=== PATIENT | female | born 1945 | race Hispanic/Latino ===

== ENCOUNTER 2017-03-30 12:15 | Inpatient (IN) | payer MEDICARE ==
[2017-03-30 12:18] VITALS: BMI 30.4
[2017-03-30] MEDS ORDERED: Sodium Chloride 0.9% 1,000 ML IV STA (12:37)
[2017-03-30] MEDS ORDERED: Ampicillin/Sulbactam 3 GM in Sodium Chloride 0.9% 100 ML IVPB STA (12:38)
--- NOTE | 2017-03-30 13:47 | RAD ---
HISTORY: Sepsis Patient COMPARISON: 01/22/2016 FINDINGS: LUNGS: No active pulmonary disease. PLEURA: No significant pleural effusion identified, no pneumothorax apparent. CARDIOVASCULAR: Normal. OSSEOUS STRUCTURES: No significant abnormalities. VISUALIZED UPPER ABDOMEN: Normal. OTHER FINDINGS: None. IMPRESSION: No active disease.
--- NOTE | 2017-03-30 13:59 | ED PDOC ---
Arrival/HPI - General Chief Complaint: Medical Clearance Time Seen by Provider: 03/30/17 12:28 Historian: Patient, Family (Daughter) - History of Present Illness Narrative History of Present Illness (Text): 03/30/17 12:29 A 71 year old female patient with a history of metastatic breast cancer, presents to the emergency department with an infection on her right breast. The patient's daughter states that after a visit to the oncologist, he advised that they come to the emergency department for the infection. She also noted that the patient has had intermittent fevers, up to 101.6, over the past several days. She has had a poor appetite of late as well as body aches. The patient denies nausea, vomiting, diarrhea, shortness of breath, headache, dizziness, or any other complaint. PMD: Dr. Stephens Oncologist: Dr. Henderson Time/Duration: > week Symptom Onset: Gradual Symptom Course: Unchanged Activities at Onset: Rest, Light Context: Home Past Medical History - Provider Review Nursing Documentation Reviewed: Yes - Infectious Disease Hx of Infectious Diseases: None - Tetanus Immunization Tetanus Immunization: Unknown - Past Medical History Past Medical History: No Previous - Cardiac Hx Cardiac Disorders: No Hx Angina: No Hx Cardiac Arrhythmia: No Hx Circulatory Problems: No Hx Congestive Heart Failure: No Hx Heart Murmur: No Hx Heart Transplant: No Hx Hypertension: No Hx Internal Defibrillator: No Hx Mitral Valve Prolapse: No Hx Pacemaker: No Hx Peripheral Edema: No Hx Peripheral Vascular Disease: No - Pulmonary Hx Respiratory Disorders: No Hx Asthma: No Hx Bronchitis: No Hx Chronic Obstructive Pulmonary Disease (COPD): No Hx Emphysema: No Hx Pneumonia: No Hx Respiratory Aspiration: No Hx Respiratory Tract Infection: No Hx Sleep Apnea: No Hx Tuberculosis: No - Neurological Hx Neurological Disorder: No Hx Alzheimer's Disease: No HX Cerebrovascular Accident: No Hx Dementia: No Hx Dizziness: No Hx Meningitis: No Hx Migraine: No Hx Parkinson's Disease: No Hx Seizures: No Hx Transient Ischemic Attacks (TIA): No - HEENT Hx HEENT Disorder: No Hx Blind: No Hx Cataracts: Yes (h/o cataract surgery) Hx Deafness: No Hx Difficulty Chewing: No Hx Epistaxis: No Hx Glaucoma: No Hx Macular Degeneration: No - Renal Hx Renal Disorder: No Hx Dialysis: No Hx Kidney Stones: No Hx Neurogenic Bladder: No Hx Pyelonephritis: No Hx Renal Cancer: No Hx Renal Failure: No - Endocrine/Metabolic Hx Endocrine Disorders: No Hx Adrenal Cancer: No Hx Diabetes Insipidus: No Hx Diabetes Mellitus Type 1: No Hx Diabetes Mellitus Type 2: No Hx Hyperthyroidism: No Hx Hypothyroidism: No Hx Systemic Lupus Erythematosus: No - Hematological/Oncological Hx Blood Disorders: No Hx AIDS: No Hx Anemia: No Hx Cancer: Yes (breast cancer) Hx Chemotherapy: No Hx Cirrhosis: No Hx Hemophilia: No Hx Hepatitis A: No Hx Hepatitis B: No Hx Hepatitis C: No Hx Metastasis: No Hx Shingles: No Hx Sickle Cell Disease: No Hx Unexplained Bleeding: No - Integumentary Hx Dermatological Disorder: No Hx Basal Cell Carcinoma: No Hx Eczema: No Hx Melanoma: No Hx Psoriasis: No Hx Squamous Cell Carcinoma: No - Musculoskeletal/Rheumatological Hx Musculoskeletal Disorders: Yes Hx Arthritis: Yes - Gastrointestinal Hx Gastrointestinal Disorders: Yes (CHOLECYSTECTOMY,CONSTIPATION) - Genitourinary/Gynecological Hx Genitourinary Disorders: No Hx Reproductive Disorders: No - Psychiatric Hx Psychophysiologic Disorder: Yes Hx Anxiety: Yes Hx Bipolar Disorder: No Hx Depression: No Hx Emotional Abuse: No Hx Hallucinations: No Hx Panic Disorder: No Hx Post Traumatic Stress Disorder: No Hx Psychosis: No Hx Physical Abuse: No Hx Schizophrenia: No Hx Sexual Abuse: No Hx Substance Use: No - Surgical History Hx Amputation: No Hx Appendectomy: No Hx Cardiac Catheterization: No Hx Cholecystectomy: Yes Hx Coronary Stent: No Hx Gastric Bypass Surgery: No Hx Hysterectomy: Yes Hx Joint Replacement: No Hx Kidney Transplant: No Hx Liver Transplant: No Hx Mastectomy: No Hx Musculoskeletal Surgery: No Hx Open Heart Surgery: No Hx Orthopedic Surgery: No Hx Splenectomy: No Hx Tonsillectomy: Yes Hx Valve Replacement: No - Anesthesia Hx Anesthesia: Yes Hx Anesthesia Reactions: No - Suicidal Assessment Feels Threatened In Home Enviroment: No Family/Social History - Physician Review Nursing Documentation Reviewed: Yes Family/Social History: No Known Family HX Smoking Status: Former Smoker Hx Alcohol Use: No Hx Substance Use: No Allergies/Home Meds Allergies/Adverse Reactions: Allergies No Known Allergies Allergy (Verified 03/30/17 12:18) Home Medications: Home Meds Medication Instructions Recorded Confirmed Calcium Carbonate/Vitamin D3 1 tab PO DAILY 03/30/17 03/30/17 [Calcium 600 + Vit D Tablet] Potassium Gluconate [Potassium] 40 meq PO DAILY 03/30/17 03/30/17 fentaNYL 25 mcg/hr [Duragesic 1 patch TD HS 03/30/17 03/30/17 Patch 25 mcg/hr] oxyCODONE [oxyCODONE Immediate 5 mg PO TID 03/30/17 03/30/17 Release Tab] Review of Systems - Physician Review All systems were reviewed & negative as marked: Yes - Review of Systems Constitutional: Fatigue, Fevers. absent: Night Sweats Eyes: Normal ENT: Normal Respiratory: absent: SOB Cardiovascular: absent: Chest Pain Gastrointestinal: Appetite Changes (loss of appetite). absent: Abdominal Pain, Diarrhea, Nausea, Vomiting Genitourinary Female: Normal Musculoskeletal: Myalgias Skin: Other (Infection Right breast) Neurological: absent: Headache, Dizziness Endocrine: Normal Hemo/Lymphatic: Normal Psychiatric: Normal Physical Exam Vital Signs Reviewed: Yes Vital Signs Temp Pulse Resp BP Pulse Ox 03/30/17 13:20 99.9 F H 108 H 18 146/100 H 98 03/30/17 12:24 98.9 F 126 H 18 127/64 95 Temperature: Afebrile (patient took tylenol) Blood Pressure: Normal Pulse: Tachycardic Respiratory Rate: Normal Appearance: Positive for: Non-Toxic Pain Distress: None Mental Status: Positive for: Alert and Oriented X 3 - Systems Exam Head: Present: Atraumatic, Normocephalic Pupils: Present: PERRL Conjunctiva: Present: Normal Mouth: Present: Moist Mucous Membranes Pharnyx: Present: Normal. No: ERYTHEMA, EXUDATE Neck: Present: Normal Range of Motion Respiratory/Chest: Present: Clear to Auscultation, Good Air Exchange. No: Respiratory Distress, Accessory Muscle Use Cardiovascular: Present: Regular Rate and Rhythm, Normal S1, S2. No: Murmurs Abdomen: Present: Normal Bowel Sounds. No: Tenderness, Distention, Peritoneal Signs Breast/Axillary: Present: Masses (R breast distorted mass with possible fungating component as well as pus discharge and very tender) Back: Present: Normal Inspection Upper Extremity: Present: Normal Inspection. No: Cyanosis, Edema Lower Extremity: Present: Normal Inspection. No: Edema Neurological: Present: GCS=15, CN II-XII Intact, Speech Normal Skin: Present: Rashes, Other (Infesction of the Right breast) Psychiatric: Present: Alert, Oriented x 3, Normal Insight, Normal Concentration Medical Decision Making ED Course and Treatment: 03/30/17 12:35 Impression: A 71 year old female patient advised by her oncologist to come into the emergency department with an infection to the right breast. Plan: -- EKG -- Labs -- IV FLuids -- Vancomycin and Ampicillin -- Blood and Urine Culture -- Urinalysis -- Reassess and disposition Progress Notes: 03/30/17 14:24: Code sepsis was called. 03/30/17 14:54 Patient with noted history as above with breast infection with possible superimposed fungating lesion. Patient had a fever at home and took tylenol and still tachycardic with 2/4 SIRS - lactic was at 5.1 - code sepsis called. She has been given vanco and unasyn iv and hydrated per sepsis protocol. Will need admission for sepsis, iv antibiotics, id and oncology eval. Case was discussed with Dr. Stephens for admission to med/surg on his service. - Lab Interpretations Lab Results: 03/30/17 13:40 03/30/17 13:40 Lab Results 03/30/17 13:40: Sodium 137, Chloride 92 L, Potassium 3.7, Carbon Dioxide 30, Anion Gap 19, BUN 11, Creatinine 0.6, Est GFR ( Amer) > 60, Est GFR (Non- Af Amer) > 60, Random Glucose 228 H, Calcium 9.4, Phosphorus 3.3, Magnesium 1.9 , Total Bilirubin 0.9, Direct Bilirubin 0.6 H, AST 213 H, ALT 29, Alkaline Phosphatase 375 H, Lactate Dehydrogenase 6711 H, Total Creatine Kinase 77, Troponin I 0.04, Total Protein 7.5, Albumin 3.7, Globulin 3.8, Albumin/Globulin Ratio 1.0 L, Lipase 18 L 03/30/17 13:40: pO2 34, VBG pH 7.39, VBG pCO2 55.0, VBG HCO3 33.3 H, VBG Total CO2 35.0 H, VBG O2 Sat (Calc) 68.3 H, VBG Base Excess 6.7 H, VBG Potassium 3.7, Sodium 137.0, Chloride 96.0 L, Glucose 243 H, Lactate 5.1 H*, FiO2 21.0, Venous Blood Potassium 3.7 03/30/17 13:40: PT 13.0 H, INR 1.20 H, APTT 28.2 03/30/17 13:40: WBC 4.5 D, RBC 3.41 L, Hgb 11.0 L, Hct 32.4 L, MCV 95.0, MCH 32.3, MCHC 34.0, RDW 17.1 H, Plt Count 142, MPV 9.3, Gran % 54.6, Lymph % (Auto ) 30.4, [place] % (Auto) 13.0 H, Eos % (Auto) 1.3 L, Baso % (Auto) 0.7, Gran # 2.44 , Lymph # 1.4, [place] # 0.6, Eos # 0.1, Baso # 0.03 - RAD Interpretation Radiology Orders: 03/30/17 12:36 CHEST PORTABLE [RAD] Stat - EKG Interpretation EKG Interpretation (Text): 03/30/17 14:57 sinus tachycardia @ 109; no ST/T changes; normal intervals, normal axis. Interpreted by ED Physician: Yes Type: 12 lead EKG - Medication Orders Current Medication Orders: Sodium Chloride (Sodium Chloride 0.9%) 1,200 mls @ 999 mls/hr IV .Q1H13M STA Stop: 03/30/17 15:35 Discontinued Medications Sodium Chloride (Sodium Chloride 0.9%) 1,000 mls @ 999 mls/hr IV .Q1H1M STA Stop: 03/30/17 13:37 Last Admin: 03/30/17 13:52 Dose: 999 mls/hr Ampicillin Sodium/Sulbactam (Sodium 3 gm/ Sodium Chloride) 100 mls @ 100 mls/ hr IVPB STAT STA PRN Reason: Protocol Stop: 03/30/17 13:37 Last Admin: 03/30/17 13:52 Dose: 100 mls/hr Vancomycin HCl 1 gm/ Sodium (Chloride) 250 mls @ 133.333 mls/hr IV STAT STA PRN Reason: Protocol Stop: 03/30/17 14:29 Last Admin: 03/30/17 14:38 Dose: 133.333 mls/hr - Scribe Statement The provider has reviewed the documentation as recorded by the Inez Bee Provider Scribe Attestation: All medical record entries made by the Scribe were at my direction and personally dictated by me. I have reviewed the chart and agree that the record accurately reflects my personal performance of the history, physical exam, medical decision making, and the department course for this patient. I have also personally directed, reviewed, and agree with the discharge instructions and disposition. Disposition/Present on Arrival - Present on Arrival Any Indicators Present on Arrival: No History of DVT/PE: No History of Uncontrolled Diabetes: No Urinary Catheter: No History of Decub. Ulcer: No History Surgical Site Infection Following: None - Disposition Have Diagnosis and Disposition been Completed?: Yes Diagnosis: Breast CA, Breast infection, Sepsis Disposition: HOSPITALIZED Disposition Time: 14:30 Patient Plan: Admission Condition: FAIR
[2017-03-30 14:01] LABS: BASO # 0.03 K/mm3 (0.0-2.0); BASO % 0.7 % (0.0-3.0); EOS # 0.1 (0.0-0.7); EOS % 1.3 % (1.5-5.0); GRAN # 2.44 (1.4-6.5); GRAN % 54.6 % (50.0-68.0); LYMPH # 1.4 (1.2-3.4); LYMPH % 30.4 % (22.0-35.0); MEAN CORPUSCULAR HEMOGLOBIN 32.3 pg (25.0-35.0); MEAN PLATELET VOLUME 9.3 fl (7.0-11.0); MONO # 0.6 (0.1-0.6); PLATELET COUNT 142 10^3/uL (120.0-450.0); RBC 3.41 10^6/uL (3.5-6.1); RED CELL DISTRIBUTION WIDTH 17.1 % (11.5-14.5); VENOUS BLOOD GAS BASE EXCESS 6.7 mmol/L (0.0-2.0); VENOUS BLOOD GAS PO2 34 mm/Hg (30-55); VENOUS BLOOD PH 7.39 (7.32-7.43); WHITE BLOOD COUNT 4.5 10^3/ul (4.5-11.0)
[2017-03-30 14:11] LABS: INR 1.2 (0.93-1.08); PARTIAL THROMBOPLASTIN TIME 28.2 Seconds (23.7-30.8)
[2017-03-30 14:12] LABS: ALBUMIN 3.7 g/dL (3.0-4.8); ALT/SGPT 29 U/L (7-56); AST/SGOT 213 U/L (15-39); BILIRUBIN,DIRECT 0.6 mg/dL (0.0-0.4); BLOOD UREA NITROGEN 11 mg/dL (7-21); CALCIUM 9.4 mg/dL (8.4-10.5); GFR AFRICAN-AMERICAN > 60; GFR NON-AFRICAN AMERICAN > 60; LIPASE 18 U/L (23-300); MAGNESIUM 1.9 mg/dL (1.7-2.2)
[2017-03-30 14:22] LABS: TROPONIN I 0.04 ng/mL
[2017-03-30] MEDS ORDERED: Sodium Chloride 0.9% 1,200 ML IV STA (14:23)
--- NOTE | 2017-03-30 14:42 | PCM.SEPTIC ---
Sepsis Progress Note - Reassessment Type Date of Evaluation: 03/30/17 Time of Evaluation: 14:30 Reassessment Type: Non-invasive reassessment - Non Invasive Reassessment Were the most recent vital sign reviewed: Yes Vital Sign (Latest): Temp Pulse Resp BP Pulse Ox 99.9 F H 108 H 18 146/100 H 98 03/30/17 13:20 03/30/17 13:20 03/30/17 13:20 03/30/17 13:20 03/30/17 13:20 Cardiovascular: Yes: Tachycardia. No: Chest Non Tender (Tenderness of R breast) Respiratory: Yes: Normal Breath Sounds Capillary Refill: Normal (Less than 2 sec) Pulses: Normal Radial, Normal Dorsalis Pedis, Normal Posterior Tibialis Skin: Normal Color, Warm, Dry
[2017-03-30 16:22] LABS: PH,URINE 6.5 (4.7-8.0); URINE BILIRUBIN NEGATIVE (NEGATIVE); URINE BLOOD NEGATIVE (NEGATIVE); URINE GLUCOSE (UA) NEGATIVE (NEGATIVE); URINE LEUKOCYTE ESTERASE NEGATIVE Leu/uL (NEGATIVE); URINE NITRATE NEGATIVE (NEGATIVE); URINE PROTEIN NEGATIVE mg/dL (<30 mg/dL); URINE UROBILINOGEN 0.2 E.U./dL (<1 E.U./dL)
[2017-03-30 16:32] LABS: URINE APPEARANCE CLEAR (CLEAR); URINE COLOR YELLOW (YELLOW)
[2017-03-30 16:43] LABS: VENOUS BLOOD GAS BASE EXCESS 8.9 mmol/L (0.0-2.0); VENOUS BLOOD GAS PO2 37 mm/Hg (30-55); VENOUS BLOOD PH 7.45 (7.32-7.43)
[2017-03-30] MEDS ORDERED: Sodium Chloride 0.45% 1,000 ML IV SCH (18:15)
--- NOTE | 2017-03-30 18:23 | CP.PCM.CON ---
History of Present Illness - History of Present Illness History of Present Illness: General Surgery Dr. Parsons 71 y/o F w/ PMHx of breast Ca presents to the ED c/o infected breast cancer. Pt c/o generalized weakness and and pain [id number]. Pt admits to fevers ~101.5 and myalgia, which is relived by Tylenol. Pt is unsure when breast mass became worse. Pt admits to drainage from lesion. Reports daughter, not at bedside, has been caring for the lesion. Pt admits to worsening productive cough w/ thick clear sputum. Pt denies SOB, CP, N/V, D/C. PMHx: Breast Ca, anxiety, constipation Meds: reviewed in chart NKDA PSHx: cholecystectomy, hysterectomy SHx: denies tobacco, EtOH, drug use FHx: noncontributory Review of Systems - Review of Systems All systems: reviewed and no additional remarkable complaints except (see hPI) Past Patient History - Infectious Disease Hx of Infectious Diseases: None - Tetanus Immunizations Tetanus Immunization: Unknown - Past Social History Smoking Status: Former Smoker - CARDIAC Hx Cardiac Disorders: No Hx Angina: No Hx Cardia Arrhythmia: No Hx Circulatory Problems: No Hx Congestive Heart Failure: No Hx Heart Murmur: No Hx Heart Transplant: No Hx Hypertension: No Hx Internal Defibrillator: No Hx Mitral Valve Prolapse: No Hx Pacemaker: No Hx Peripheral Edema: No Hx Peripheral Vascular Disease: No - PULMONARY Hx Respiratory Disorders: No Hx Asthma: No Hx Bronchitis: No Hx Chronic Obstructive Pulmonary Disease (COPD): No Hx Emphysema: No Hx Pneumonia: No Hx Respiratory Aspiration: No Hx Respiratory Tract Infection: No Hx Sleep Apnea: No Hx Tuberculosis: No - NEUROLOGICAL Hx Neurological Disorder: No Hx Alzheimer's Disease: No HX Cerebrovascular Accident: No Hx Dementia: No Hx Dizziness: No Hx Meningitis: No Hx Migraine: No Hx Parkinson's Disease: No Hx Seizures: No Hx Transient Ischemic Attacks (TIA): No - HEENT Hx HEENT Problems: No Hx Blind: No Hx Cataracts: Yes (h/o cataract surgery) Hx Deafness: No Hx Difficulty Chewing: No Hx Epistaxis: No Hx Glaucoma: No Hx Macular Degeneration: No - RENAL Hx Chronic Kidney Disease: No Hx Dialysis: No Hx Kidney Stones: No Hx Neurogenic Bladder: No Hx Pyelonephritis: No Hx Renal (Kidney) Cancer: No Hx Renal Failure: No - ENDOCRINE/METABOLIC Hx Endocrine Disorders: No Hx Adrenal Cancer: No Hx Diabetes Insipidus: No Hx Diabetes Mellitus Type 1: No Hx Diabetes Mellitus Type 2: No Hx Hyperthyroidism: No Hx Hypothyroidism: No Hx Systemic Lupus Erythematosus: No - HEMATOLOGICAL/ONCOLOGICAL Hx Blood Disorders: No Hx AIDS: No Hx Anemia: No Hx Cancer: Yes (breast cancer) Hx Chemotherapy: No Hx Cirrhosis: No Hx Hemophilia: No Hx Hepatitis A: No Hx Hepatitis B: No Hx Hepatitis C: No Hx Metastesis: No Hx Shingles: No Hx Sickle Cell Disease: No Hx Unexplained Bleeding: No - INTEGUMENTARY Hx Dermatological Problems: No Hx Basil Cell: No Hx Eczema: No Hx Melanoma: No Hx Psoriasis: No Hx Squamous Cell: No - MUSCULOSKELETAL/RHEUMATOLOGICAL Hx Musculoskeletal Disorders: Yes Hx Arthritis: Yes - GASTROINTESTINAL Hx Gastrointestinal Disorders: Yes (CHOLECYSTECTOMY,CONSTIPATION) - GENITOURINARY/GYNECOLOGICAL Hx Genitourinary Disorders: No Hx Reproductive Disorders: No - PSYCHIATRIC Hx Psychophysiologic Disorder: Yes Hx Anxiety: Yes Hx Bipolar Disorder: No Hx Depression: No Hx Emotional Abuse: No Hx Hallucinations: No Hx Panic Symptoms: No Hx Post Traumatic Stress Disorder: No Hx Psychosis: No Hx Physical Abuse: No Hx Schizophrenia: No Hx Sexual Abuse: No Hx Substance Use: No - SURGICAL HISTORY Hx Amputation: No Hx Appendectomy: No Hx Cardiac Catheterization: No Hx Cholecystectomy: Yes Hx Coronary Stent: No Hx Gastric Bypass Surgery: No Hx Hysterectomy: Yes Hx Joint Replacement: No Hx Kidney Transplant: No Hx Liver Transplant: No Hx Mastectomy: No Hx Musculoskeletal Surgery: No Hx Open Heart Surgery: No Hx Orthopedic Surgery: No Hx Splenectomy: No Hx Tonsillectomy: Yes Hx Valve Replacement: No - ANESTHESIA Hx Anesthesia: Yes Hx Anesthesia Reactions: No Meds Allergies/Adverse Reactions: Allergies Allergy/AdvReac Type Severity Reaction Status Date / Time No Known Allergies Allergy Verified 03/30/17 18:50 - Medications Medications: Current Medications Acetaminophen (Tylenol 325mg Tab) 650 mg PO Q4H PRN PRN Reason: Pain, severe (8-10) Calcium/Vitamin D (Oscal-D 250 Mg-125 Units Tab) 2 tab PO DAILY ANABELLA Fentanyl (Duragesic) 1 patch TD HS ANABELLA Sodium Chloride (Sodium Chloride 0.45%) 1,000 mls @ 60 mls/hr IV .[id number] ANABELLA Ampicillin Sodium/Sulbactam Sodium (Unasyn 1 Gm-0.5 Gm) 1 gm in 100 mls @ 100 mls/hr IVPB Q12 ANABELLA PRN Reason: Protocol Insulin Human Regular (Humulin R High) 0 units SC ACHS ANABELLA PRN Reason: Protocol Non-Formulary Medication (Potassium Gluconate [Potassium]) 40 meq PO DAILY ANABELLA Oxycodone HCl (Oxycodone Immediate Release Tab) 5 mg PO TID ANABELLA Physical Exam - Constitutional Appears: Non-toxic, No Acute Distress - Head Exam Head Exam: NORMAL INSPECTION - Eye Exam Eye Exam: Normal appearance - ENT Exam ENT Exam: Mucous Membranes Moist - Respiratory Exam Respiratory Exam: NORMAL BREATHING PATTERN. absent: Accessory Muscle Use, Respiratory Distress - GI/Abdominal Exam GI & Abdominal Exam: Soft. absent: Distended, Tenderness Additional comments: healed jyoti scar present - Extremities Exam Extremities exam: Positive for: normal inspection - Neurological Exam Neurological exam: Alert, Oriented x3 - Psychiatric Exam Psychiatric exam: Normal Affect, Normal Mood - Skin Skin Exam: Dry, Warm - Additional Findings Additional findings: R breast lesion. 5x5cm area obliterating areola and nipple. nodular, erythematous, TTP. serous drainage present. Results - Vital Signs Recent Vital Signs: Last Vital Signs Temp 99.9 F H 03/30/17 13:20 Pulse 92 H 03/30/17 14:53 Resp 16 03/30/17 14:53 BP 129/72 03/30/17 14:53 Pulse Ox 97 03/30/17 14:53 - Labs Result Diagrams: 03/30/17 13:40 03/30/17 13:40 Labs: Laboratory Results - last 24 hr 03/30/17 03/30/17 16:00 16:30 pO2 37 VBG pH 7.45 H VBG pCO2 49.0 VBG HCO3 34.1 H VBG O2 Sat (Calc) 77.1 H VBG Base Excess 8.9 H Urine Color Yellow Urine Appearance Clear Urine pH 6.5 Ur Specific Scott 1.020 Urine Protein Negative Urine Glucose (UA) Negative Urine Ketones 15 H Urine Blood Negative Urine Nitrate Negative Urine Bilirubin Negative Urine Urobilinogen 0.2 Ur Leukocyte Esterase Negative - Imaging and Cardiology Chest x-ray Status: Image reviewed by me (no active disease) Assessment & Plan - Assessment and Plan (Free Text) Assessment: 71 y/o F w/ infected breast mass - wound care --> xeroform, 4x4s, tape - IV abx - chemo per Oncology - pain management - antipyretic prn - further recs per Dr. Parsons Pt seen and discuss w/ Dr. Issa Spear DO PGY2
[2017-03-30 19:51] LABS: VENOUS BLOOD GAS BASE EXCESS 8.2 mmol/L (0.0-2.0); VENOUS BLOOD GAS PO2 42 mm/Hg (30-55); VENOUS BLOOD PH 7.51 (7.32-7.43)
--- NOTE | 2017-03-30 20:57 | PCM.SEPTIC ---
Sepsis Progress Note - Reassessment Type Date of Evaluation: 03/30/17 Time of Evaluation: 20:35 Reassessment Type: Non-invasive reassessment - Non Invasive Reassessment Were the most recent vital sign reviewed: Yes Vital Sign (Latest): Temp Pulse Resp BP Pulse Ox 98.2 F 99 H 20 134/60 94 L 03/30/17 20:15 03/30/17 20:15 03/30/17 20:15 03/30/17 20:15 03/30/17 20:15 Cardiovascular: Yes: Regular Rate, Rhythm Respiratory: Yes: Normal Breath Sounds. No: Respiratory Distress Capillary Refill: Normal (Less than 2 sec) Skin: Normal Color, Warm, Dry
[2017-03-30] MEDS ORDERED: Pneumococcal 23-Valent Vaccine IM ONE (21:55)
[2017-03-30] MEDS: Insulin Reg-HIGH-Coverage SC SCH (22:09)
[2017-03-30] MEDS ORDERED: oxyCODONE 5 mg Immediate Release Tab PO STA (22:17)
--- NOTE | 2017-03-30 22:42 | CP.PCM.CON ---
History of Present Illness - History of Present Illness History of Present Illness: She was seen and examined earlier today Oncology consultation requested by Dr. Stephens for breast cancer HPI- Ms Joshi is 71 y/o F who is well known to me from outpatient. She has stage IV breast cancer, ER/NM + and Her-2 negative that was diagnosed around January 2016. She has been treated with multiple lines of hormonal treatment but recently her breast cancer was found to have progressed. She came to my office earlier today and complained of intermittent fever at home. She complains of worsening pain in right breast mass with increasing drainage. She feels tired and her appetite has decreased. Denies headaches or blurry vision. Denies altered bowel movements or shortness of breath. Family and Social history reviewed. Review of Systems - Review of Systems All systems: reviewed and no additional remarkable complaints except Review of Systems: as in HPI Past Patient History - Infectious Disease Hx of Infectious Diseases: None - Tetanus Immunizations Tetanus Immunization: Unknown - Past Social History Smoking Status: Former Smoker - CARDIAC Hx Cardiac Disorders: No Hx Angina: No Hx Cardia Arrhythmia: No Hx Circulatory Problems: No Hx Congestive Heart Failure: No Hx Heart Murmur: No Hx Heart Transplant: No Hx Hypertension: No Hx Internal Defibrillator: No Hx Mitral Valve Prolapse: No Hx Pacemaker: No Hx Peripheral Edema: No Hx Peripheral Vascular Disease: No - PULMONARY Hx Respiratory Disorders: Yes (SMOKED CIGARETTES QUIT 1981) Hx Asthma: No Hx Bronchitis: No Hx Chronic Obstructive Pulmonary Disease (COPD): No Hx Emphysema: No Hx Pneumonia: No Hx Respiratory Aspiration: No Hx Respiratory Tract Infection: No Hx Sleep Apnea: No Hx Tuberculosis: No - NEUROLOGICAL Hx Neurological Disorder: No Hx Alzheimer's Disease: No HX Cerebrovascular Accident: No Hx Dementia: No Hx Dizziness: No Hx Meningitis: No Hx Migraine: No Hx Parkinson's Disease: No Hx Seizures: No Hx Transient Ischemic Attacks (TIA): No - HEENT Hx HEENT Problems: Yes Hx Blind: No Hx Cataracts: Yes (h/o cataract surgery) Hx Deafness: No Hx Difficulty Chewing: No Hx Epistaxis: No Hx Glaucoma: No Hx Macular Degeneration: No - RENAL Hx Chronic Kidney Disease: No Hx Dialysis: No Hx Kidney Stones: No Hx Neurogenic Bladder: No Hx Pyelonephritis: No Hx Renal (Kidney) Cancer: No Hx Renal Failure: No - ENDOCRINE/METABOLIC Hx Endocrine Disorders: No Hx Adrenal Cancer: No Hx Diabetes Insipidus: No Hx Diabetes Mellitus Type 1: No Hx Diabetes Mellitus Type 2: No Hx Hyperthyroidism: No Hx Hypothyroidism: No Hx Systemic Lupus Erythematosus: No - HEMATOLOGICAL/ONCOLOGICAL Hx Blood Disorders: Yes Hx AIDS: No Hx Anemia: No Hx Cancer: Yes (breast cancer WITH METS,COLON AND BONE) Hx Chemotherapy: Yes (PILLS STARTED FEBRUARY 2017) Hx Cirrhosis: No Hx Hemophilia: No Hx Hepatitis A: No Hx Hepatitis B: No Hx Hepatitis C: No Hx Metastesis: No Hx Shingles: No Hx Sickle Cell Disease: No Hx Unexplained Bleeding: No Other/Comment: RADIATION - INTEGUMENTARY Hx Dermatological Problems: Yes Hx Basil Cell: No Hx Eczema: No Hx Melanoma: No Hx Psoriasis: No Hx Squamous Cell: No Other/Comment: 03-30-17 CODE SEPSIS-RIGHT BREAST INFECTION,MID LOWER BACK DIMPLING OF SKIN,DRY SCABBED AREA.LEFT 0.3 CM WOUND TO LABIA MAJORA.BILATERAL GROIN AREA DARKENED SKIN DISCOLORATION - MUSCULOSKELETAL/RHEUMATOLOGICAL Hx Musculoskeletal Disorders: Yes Hx Arthritis: Yes Hx Falls: No Hx Unsteady Gait: Yes (WALKER) - GASTROINTESTINAL Hx Gastrointestinal Disorders: Yes (CHOLECYSTECTOMY,CONSTIPATION) - GENITOURINARY/GYNECOLOGICAL Hx Genitourinary Disorders: No - PSYCHIATRIC Hx Psychophysiologic Disorder: Yes Hx Anxiety: Yes Hx Bipolar Disorder: No Hx Depression: No Hx Emotional Abuse: No Hx Hallucinations: No Hx Panic Symptoms: No Hx Post Traumatic Stress Disorder: No Hx Psychosis: No Hx Physical Abuse: No Hx Schizophrenia: No Hx Sexual Abuse: No Hx Substance Use: No - SURGICAL HISTORY Hx Surgeries: Yes Hx Amputation: No Hx Appendectomy: No Hx Cardiac Catheterization: No Hx Cholecystectomy: Yes Hx Coronary Stent: No Hx Gastric Bypass Surgery: No Hx Hysterectomy: Yes Hx Joint Replacement: No Hx Kidney Transplant: No Hx Liver Transplant: No Hx Mastectomy: No Hx Musculoskeletal Surgery: No Hx Open Heart Surgery: No Hx Orthopedic Surgery: No Hx Splenectomy: No Hx Valve Replacement: No - ANESTHESIA Hx Anesthesia: Yes Hx Anesthesia Reactions: No Meds Allergies/Adverse Reactions: Allergies Allergy/AdvReac Type Severity Reaction Status Date / Time No Known Allergies Allergy Verified 03/30/17 18:50 - Medications Medications: Current Medications Acetaminophen (Tylenol 325mg Tab) 650 mg PO Q4H PRN PRN Reason: Pain, severe (8-10) Last Admin: 03/30/17 18:22 Dose: 650 mg Calcium/Vitamin D (Oscal-D 250 Mg-125 Units Tab) 2 tab PO DAILY [facility] Fentanyl (Duragesic) 1 patch TD HS [facility] Last Admin: 03/30/17 21:57 Dose: 1 patch Sodium Chloride (Sodium Chloride 0.45%) 1,000 mls @ 60 mls/hr IV .[id number] [facility] Last Admin: 03/30/17 18:26 Dose: 60 mls/hr Ampicillin Sodium/Sulbactam Sodium (Unasyn 1 Gm-0.5 Gm) 1 gm in 100 mls @ 100 mls/hr IVPB Q6 ANABELLA PRN Reason: Protocol Vancomycin HCl (Vancomycin 1gm) 1 gm in 250 mls @ 167 mls/hr IVPB Q12H ANABELLA PRN Reason: Protocol Insulin Human Regular (Humulin R High) 0 units SC ACHS ANABELLA PRN Reason: Protocol Last Admin: 03/30/17 22:09 Dose: Not Given Non-Formulary Medication (Potassium Gluconate [Potassium]) 40 meq PO DAILY [facility] Oxycodone HCl (Oxycodone Immediate Release Tab) 5 mg PO TID [facility] Physical Exam - Head Exam Head Exam: ATRAUMATIC, NORMAL INSPECTION - Eye Exam Eye Exam: EOMI, PERRL - ENT Exam ENT Exam: Mucous Membranes Moist - Neck Exam Neck exam: Negative for: Lymphadenopathy - Respiratory Exam Respiratory Exam: Clear to Auscultation Bilateral - Cardiovascular Exam Cardiovascular Exam: REGULAR RHYTHM - GI/Abdominal Exam GI & Abdominal Exam: Normal Bowel Sounds, Soft. absent: Organomegaly, Tenderness - Skin Additional comments: Right breast mass with satellite nodules with purulent drainage. Results - Vital Signs Recent Vital Signs: Last Vital Signs Temp 98.2 F 03/30/17 21:25 Pulse 99 H 03/30/17 21:25 Resp 16 03/30/17 21:25 BP 134/60 03/30/17 21:25 Pulse Ox 94 L 03/30/17 20:15 - Labs Result Diagrams: 03/30/17 13:40 03/30/17 13:40 Labs: Laboratory Results - last 24 hr 03/30/17 03/30/17 03/30/17 16:00 16:30 19:38 pO2 37 42 VBG pH 7.45 H 7.51 H VBG pCO2 49.0 40.0 VBG HCO3 34.1 H 31.9 H VBG Total CO2 33.1 H VBG O2 Sat (Calc) 77.1 H 85.3 H VBG Base Excess 8.9 H 8.2 H VBG Potassium 3.9 Sodium 136.0 Chloride 100.0 Glucose 245 H Lactate 5.3 H* FiO2 21.0 Venous Blood Potassium 3.9 Urine Color Yellow Urine Appearance Clear Urine pH 6.5 Ur Specific [place] 1.020 Urine Protein Negative Urine Glucose (UA) Negative Urine Ketones 15 H Urine Blood Negative Urine Nitrate Negative Urine Bilirubin Negative Urine Urobilinogen 0.2 Ur Leukocyte Esterase Negative Assessment & Plan - Assessment and Plan (Free Text) Assessment: Stage IV breast Cancer Right breast mass infection Surgery and ID consult. She needs IV antibiotics. Will follow up cultures. Continue current pain regimen. She uses Fentanyl patch 25 mcg/hr along with Oxycodone 5 mg prn. Maintain adequate bowel regimen. Regarding her breast cancer, plan was to switch her to chemotherapy. I had discussed several options with her and decided to start on oral Xeloda, once clinically stable. Will continue to follow up with you. Man Henderson MD - Date & Time Date: 03/30/17 Time: 17:42
--- NOTE | 2017-03-31 00:47 | CARD ---
APPROVED REPORT EKG Measurement Heart [id number] <Conclusion> Sinus tachycardia Inferior infarct, age undetermined Abnormal ECG
[2017-03-31] MEDS ORDERED: Vancomycin 1gm in NS 250ml 1 GM/250 ML BAG IVPB SCH (02:30)
[2017-03-31] MEDS: Vancomycin 1gm in NS 250ml 1 GM/250 ML BAG IVPB SCH ×2 (05:27→17:58)
--- NOTE | 2017-03-31 06:38 | HP ---
HISTORY OF PRESENT ILLNESS: I know Katerin very well from house calls and taking care of her for many years. She is a 71-year-old female, who was sent in to the hospital by Dr Henderson, the oncologist, who felt that her right breast has oozing and mass, and she had 101.6 temperature and he felt that she needed to have IV antibiotics and may be some surgical look at it. She has a history of metastatic breast cancer, on chemotherapy with an infection on the right breast. She is in pain on that cancer. She had cataract surgery. She has arthritis, she had cholecystectomy, and constipation. She had a hysterectomy. FAMILY HISTORY: No known family history. SOCIAL HISTORY: Former smoker, no alcohol, no drugs. ALLERGIES: NO KNOWN DRUG ALLERGIES. MEDICATIONS: She takes calcium, vitamin D supplement, potassium supplement, fentanyl for pain 25 mcg an hour, and oxycodone 5 mg immediate release 3 times a day. REVIEW OF SYSTEMS: No changes in vision or hearing. No sore throat. She is having fevers of 101 at home. She is a little bit tired, little weaker. No shortness of breath. No chest pain. She is having right breast changes with oozing and hardness to it. She has a loss of appetite. No abdominal pain. No nausea vomiting, constipation, or diarrhea. She also got some myalgias and pain in the bones. No headache, no dizziness, no sweating, no anxiety or depression. PHYSICAL EXAMINATION: GENERAL: She is alert and oriented x3, nontoxic. VITAL SIGNS: She has a 99.9 temp, 126 pulse, 18 respiratory rate, 146/100 blood pressure, and 95% O2 sat. HEENT: Head atraumatic, normocephalic. Extraocular muscles are intact. Pupils are equal and reactive to light and accommodation. Throat is dry. NECK: Supple. HEART: Regular rate, normal S1 and S2. LUNGS: Decreased breath sounds but clear to auscultation. No wheezes. No rhonchi. No rales. ABDOMEN: Soft, nontender. Positive bowel sounds. No guarding. No rebound. No CVA tenderness. BREASTS: Right breast has distorted mass, possible fungation pus discharge, very tender and hard. EXTREMITIES: No edema. NEUROLOGIC: GCS is 15. Cranial nerves 2 through 12 grossly intact. Normal speech. Alert and oriented x3. SKIN: She has a right breast infection. LYMPH: Thyroid midline. No palpable appreciable lymphadenopathy. LABORATORY DATA: She has had multiple tests. She had a chest x-ray, which showed no active disease. She had multiple labs. She has 137 sodium, potassium 3.7, BUN 11, creatinine 0.6. GFR is greater than 60. Sugar is 228, I will be checking her blood sugars. Calcium is 9.4, total bilirubin is 0.9, direct bilirubin is 0.6. AST is 213, ALT is 29, alkaline phosphatase is 375. Lipase dehydrogenase is 6711. Troponin is 0.04. Total protein is 7.5, albumin is 3.7, and lipase is 18 low. White count is 4.5, hemoglobin 11, hematocrit 32.4, platelets are 142. INR is 1.2. Urine is negative. She has had a consult with Oncology Surgery and Infectious Disease. She will be on Unasyn. I will put her back on her regular medications. We will her blood sugars while she is here, and hopefully, she will do well. We will check her labs in the morning. She has breast cancer which now looks like she is having an infection and mass and might need to be opened up by the surgeon and given antibiotics by infectious disease. Discussed with the daughter at length. Christian Stephens DO MTDD
--- NOTE | 2017-03-31 07:41 | CP.PCM.PN ---
Subjective - Date & Time of Evaluation Date of Evaluation: 03/31/17 Time of Evaluation: 07:00 - Subjective Subjective: Surgery Progress Note Dr. Parsons Patient is a 71 year old female with stage IV breast cancer with c/o R breast infected mass. Patient states the right breast is still sore. She mentions drainage that has been going on for the past few days. Currently no drainage was noted through vaseline gauze. Patient denies shortness of breath, chest pain , n/v/d, headache. Objective - Vital Signs/Intake and Output Vital Signs (last 24 hours): Temp Pulse Resp BP Pulse Ox 98.2 F 99 H 16 134/60 94 L 03/30/17 21:25 03/30/17 21:25 03/30/17 21:25 03/30/17 21:25 03/30/17 20:15 Intake and Output: 03/31/17 03/31/17 06:59 18:59 Intake Total 480 Balance 480 - Medications Medications: Current Medications Acetaminophen (Tylenol 325mg Tab) 650 mg PO Q4H PRN PRN Reason: Pain, severe (8-10) Last Admin: 03/30/17 18:22 Dose: 650 mg Calcium/Vitamin D (Oscal-D 250 Mg-125 Units Tab) 2 tab PO DAILY [facility] Fentanyl (Duragesic) 1 patch TD HS [facility] Last Admin: 03/30/17 21:57 Dose: 1 patch Sodium Chloride (Sodium Chloride 0.45%) 1,000 mls @ 60 mls/hr IV .[id number] [facility] Last Admin: 03/30/17 18:26 Dose: 60 mls/hr Ampicillin Sodium/Sulbactam Sodium (Unasyn 1 Gm-0.5 Gm) 1 gm in 100 mls @ 100 mls/hr IVPB Q6 ANABELLA PRN Reason: Protocol Last Admin: 03/31/17 05:26 Dose: 100 mls/hr Vancomycin HCl (Vancomycin 1gm) 1 gm in 250 mls @ 167 mls/hr IVPB Q12H ANABELLA PRN Reason: Protocol Last Admin: 03/31/17 05:27 Dose: 167 mls/hr Insulin Human Regular (Humulin R High) 0 units SC ACHS ANABELLA PRN Reason: Protocol Last Admin: 03/30/17 22:09 Dose: Not Given Non-Formulary Medication (Potassium Gluconate [Potassium]) 40 meq PO DAILY [facility] Oxycodone HCl (Oxycodone Immediate Release Tab) 5 mg PO TID ANABELLA - Labs Labs: PT 13.0 Seconds (9.9-11.8) H 03/30/17 13:40 INR 1.20 (0.93-1.08) H 03/30/17 13:40 APTT 28.2 Seconds (23.7-30.8) 03/30/17 13:40 - Constitutional Appears: Well - Head Exam Head Exam: ATRAUMATIC, NORMAL INSPECTION, NORMOCEPHALIC - ENT Exam ENT Exam: Mucous Membranes Moist, Normal Exam - Respiratory Exam Respiratory Exam: Clear to Ausculation Bilateral, NORMAL BREATHING PATTERN - Cardiovascular Exam Cardiovascular Exam: REGULAR RHYTHM, RRR, +S1, +S2 - GI/Abdominal Exam GI & Abdominal Exam: Soft, Normal Bowel Sounds - Neurological Exam Neurological Exam: Alert, Awake, Oriented x3 - Skin Skin Exam: Normal Color, Warm Assessment and Plan - Assessment and Plan (Free Text) Plan: 71 year old famel stage IV breast ca - wound care; xeroform, 4x4s, tape - IV abx; Ampicillin/Sulbactam and Vancomycin - chemo per Oncology - pain management; Oxycodone - antipyretic prn - further recs per Dr. Parsons
--- NOTE | 2017-03-31 07:58 | CP.PCM.CON ---
Addendum entered and electronically signed by Kim Perry DO 03/31/17 13:51 : Called Dr. Henderson office inquiring what type of breast cancer histologically. r/ o inflammatory type Surgery plan is to continue wound care with dressing change. No plan for I&D Asked RN to get wound culture with morphine 1 and ativan 0.5 x [address] chest IV contrast to r/o abscess change IVF to NS 70cc to prevent contrast nephropathy Daughter norma is in lunch break. will come up to pt and i will update her Original Note: <VickyKim - Last Filed: 03/31/17 08:37> History of Present Illness - History of Present Illness History of Present Illness: PGY-[address] Isidro ID consult: infected breast mass 71 y/o F w/ PMHx of stage 4 breast Ca mets to bone and colon, presents to the ED c/o worsened pain on R breast mass, with incrased drainage, associated with fever. The fever was mild and intermittent with pain/drainage of R breast mass started 2 weeks ago. (+) myalgia (+) cough, dry, hard to produce, occasioal white sputum daughter has been caring for the lesion Upon ED arrival, code sepsis was called T 101.5, sinus tachy at 109, lactate 5.1 --> 3.9 1L NS given with vanco and unasyn x 1 CXR - no active disease EKG - sinus tachy at 109. q waves in inferior leads QTc 452 ROS: (+) F/C, decrease appetite, tired (+) drianage breast with mylagia (+) worsening productive cough w/ thick clear sputum Denies DENNY, blurry vision, diarrha, SOB, CP PMHx: Breast Ca, stage 4, mets to bone and colon, ER/RI pos' her-2 neg (Dx january 2016) s/p radiation, chemo, multiple lines of hormone therapy but cancer progresses anxiety constipation PSHx: cholecystectomy, hysterectomy cataract surgery SHx: Former smoker quit 1981, EtOH, drug use NKDA Med Durgesic patch PMD: Dr. Stephens Heme/Onc: Dr. Henderson Past Patient History - Infectious Disease Hx of Infectious Diseases: None - Tetanus Immunizations Tetanus Immunization: Unknown - Past Social History Smoking Status: Former Smoker - CARDIAC Hx Cardiac Disorders: No Hx Angina: No Hx Cardia Arrhythmia: No Hx Circulatory Problems: No Hx Congestive Heart Failure: No Hx Heart Murmur: No Hx Heart Transplant: No Hx Hypertension: No Hx Internal Defibrillator: No Hx Mitral Valve Prolapse: No Hx Pacemaker: No Hx Peripheral Edema: No Hx Peripheral Vascular Disease: No - PULMONARY Hx Respiratory Disorders: Yes (SMOKED CIGARETTES QUIT 1981 PPD) Hx Asthma: No Hx Bronchitis: No Hx Chronic Obstructive Pulmonary Disease (COPD): No Hx Emphysema: No Hx Pneumonia: No Hx Respiratory Aspiration: No Hx Respiratory Tract Infection: No Hx Sleep Apnea: No Hx Tuberculosis: No - NEUROLOGICAL Hx Neurological Disorder: No Hx Alzheimer's Disease: No HX Cerebrovascular Accident: No Hx Dementia: No Hx Dizziness: No Hx Meningitis: No Hx Migraine: No Hx Parkinson's Disease: No Hx Seizures: No Hx Transient Ischemic Attacks (TIA): No - HEENT Hx HEENT Problems: Yes Hx Blind: No Hx Cataracts: Yes (h/o cataract surgery) Hx Deafness: No Hx Difficulty Chewing: No Hx Epistaxis: No Hx Glaucoma: No Hx Macular Degeneration: No - RENAL Hx Chronic Kidney Disease: No Hx Dialysis: No Hx Kidney Stones: No Hx Neurogenic Bladder: No Hx Pyelonephritis: No Hx Renal (Kidney) Cancer: No Hx Renal Failure: No - ENDOCRINE/METABOLIC Hx Endocrine Disorders: No Hx Adrenal Cancer: No Hx Diabetes Insipidus: No Hx Diabetes Mellitus Type 1: No Hx Diabetes Mellitus Type 2: No Hx Hyperthyroidism: No Hx Hypothyroidism: No Hx Systemic Lupus Erythematosus: No - HEMATOLOGICAL/ONCOLOGICAL Hx Blood Disorders: Yes Hx AIDS: No Hx Anemia: No Hx Cancer: Yes (breast cancer WITH METS,COLON AND BONE) Hx Chemotherapy: Yes (PILLS STARTED FEBRUARY 2017) Hx Cirrhosis: No Hx Hemophilia: No Hx Hepatitis A: No Hx Hepatitis B: No Hx Hepatitis C: No Hx Metastesis: No Hx Shingles: No Hx Sickle Cell Disease: No Hx Unexplained Bleeding: No Other/Comment: RADIATION - INTEGUMENTARY Hx Dermatological Problems: Yes Hx Basil Cell: No Hx Eczema: No Hx Melanoma: No Hx Psoriasis: No Hx Squamous Cell: No Other/Comment: 03-30-17 CODE SEPSIS-RIGHT BREAST INFECTION,MID LOWER BACK DIMPLING OF SKIN,DRY SCABBED AREA.LEFT 0.3 CM WOUND TO LABIA MAJORA.BILATERAL GROIN AREA DARKENED SKIN DISCOLORATION - MUSCULOSKELETAL/RHEUMATOLOGICAL Hx Musculoskeletal Disorders: Yes Hx Arthritis: Yes Hx Falls: No Hx Unsteady Gait: Yes (WALKER) - GASTROINTESTINAL Hx Gastrointestinal Disorders: Yes (CHOLECYSTECTOMY,CONSTIPATION) - GENITOURINARY/GYNECOLOGICAL Hx Genitourinary Disorders: No - PSYCHIATRIC Hx Psychophysiologic Disorder: Yes Hx Anxiety: Yes Hx Bipolar Disorder: No Hx Depression: No Hx Emotional Abuse: No Hx Hallucinations: No Hx Panic Symptoms: No Hx Post Traumatic Stress Disorder: No Hx Psychosis: No Hx Physical Abuse: No Hx Schizophrenia: No Hx Sexual Abuse: No Hx Substance Use: No - SURGICAL HISTORY Hx Surgeries: Yes Hx Amputation: No Hx Appendectomy: No Hx Cardiac Catheterization: No Hx Cholecystectomy: Yes Hx Coronary Stent: No Hx Gastric Bypass Surgery: No Hx Hysterectomy: Yes Hx Joint Replacement: No Hx Kidney Transplant: No Hx Liver Transplant: No Hx Mastectomy: No Hx Musculoskeletal Surgery: No Hx Open Heart Surgery: No Hx Orthopedic Surgery: No Hx Splenectomy: No Hx Valve Replacement: No - ANESTHESIA Hx Anesthesia: Yes Hx Anesthesia Reactions: No Meds Allergies/Adverse Reactions: Allergies Allergy/AdvReac Type Severity Reaction Status Date / Time No Known Allergies Allergy Verified 03/30/17 18:50 - Medications Medications: Current Medications Acetaminophen (Tylenol 325mg Tab) 650 mg PO Q4H PRN PRN Reason: Pain, severe (8-10) Last Admin: 03/30/17 18:22 Dose: 650 mg Calcium/Vitamin D (Oscal-D 250 Mg-125 Units Tab) 2 tab PO DAILY [facility] Fentanyl (Duragesic) 1 patch TD HS [facility] Last Admin: 03/30/17 21:57 Dose: 1 patch Sodium Chloride (Sodium Chloride 0.45%) 1,000 mls @ 60 mls/hr IV .[id number] [facility] Last Admin: 03/30/17 18:26 Dose: 60 mls/hr Ampicillin Sodium/Sulbactam Sodium (Unasyn 1 Gm-0.5 Gm) 1 gm in 100 mls @ 100 mls/hr IVPB Q6 [facility] PRN Reason: Protocol Last Admin: 03/31/17 05:26 Dose: 100 mls/hr Vancomycin HCl (Vancomycin 1gm) 1 gm in 250 mls @ 167 mls/hr IVPB Q12H [facility] PRN Reason: Protocol Last Admin: 03/31/17 05:27 Dose: 167 mls/hr Insulin Human Regular (Humulin R High) 0 units SC [facility] PRN Reason: Protocol Last Admin: 03/30/17 22:09 Dose: Not Given Non-Formulary Medication (Potassium Gluconate [Potassium]) 40 meq PO DAILY [facility] Oxycodone HCl (Oxycodone Immediate Release Tab) 5 mg PO Q6H PRN PRN Reason: Pain, moderate (4-7) Physical Exam - Constitutional Appears: No Acute Distress - Head Exam Head Exam: ATRAUMATIC, NORMAL INSPECTION, NORMOCEPHALIC - Eye Exam Eye Exam: EOMI, Normal appearance, PERRL. absent: Scleral icterus Pupil Exam: NORMAL ACCOMODATION - ENT Exam ENT Exam: Mucous Membranes Moist - Neck Exam Additional comments: supple - Respiratory Exam Respiratory Exam: Clear to Auscultation Bilateral. absent: Rales, Rhonchi, Wheezes - Cardiovascular Exam Cardiovascular Exam: REGULAR RHYTHM, +S1, +S2 - GI/Abdominal Exam GI & Abdominal Exam: Normal Bowel Sounds, Soft. absent: Distended, Firm, Guarding, Rigid, Tenderness - Exam Additional comments: normal L breast, no mass/erythema R breast tenderness, 1 inch x 1 inch x 1 inch indurated mass with white pus, dressing intact. erythema noted - Extremities Exam Extremities exam: Positive for: pedal pulses present. Negative for: calf tenderness, pedal edema - Back Exam Back exam: absent: CVA tenderness (L), CVA tenderness (R) - Neurological Exam Neurological exam: Alert, Oriented x3 - Psychiatric Exam Psychiatric exam: Depressed, Normal Affect - Skin Skin Exam: Dry, Warm Results - Vital Signs Recent Vital Signs: Last Vital Signs Temp 98.2 F 03/30/17 21:25 Pulse 99 H 03/30/17 21:25 Resp 16 03/30/17 21:25 BP 134/60 03/30/17 21:25 Pulse Ox 94 L 03/30/17 20:15 - Labs Result Diagrams: 03/31/17 07:30 03/31/17 07:30 Labs: Laboratory Results - last 24 hr 03/30/17 03/30/17 03/30/17 16:00 16:30 19:38 pO2 37 42 VBG pH 7.45 H 7.51 H VBG pCO2 49.0 40.0 VBG HCO3 34.1 H 31.9 H VBG Total CO2 33.1 H VBG O2 Sat (Calc) 77.1 H 85.3 H VBG Base Excess 8.9 H 8.2 H VBG Potassium 3.9 Sodium 136.0 Chloride 100.0 Glucose 245 H Lactate 5.3 H* FiO2 21.0 Venous Blood Potassium 3.9 Urine Color Yellow Urine Appearance Clear Urine pH 6.5 Ur Specific [place] 1.020 Urine Protein Negative Urine Glucose (UA) Negative Urine Ketones 15 H Urine Blood Negative Urine Nitrate Negative Urine Bilirubin Negative Urine Urobilinogen 0.2 Ur Leukocyte Esterase Negative Assessment & Plan - Assessment and Plan (Free Text) Plan: 71 y/o F w/ PMHx of stage 4 breast Ca mets to bone and colon, presents to the ED c/o worsened pain on R breast mass, with incrased drainage, associated with fever. - Sepsis likely from infected breast mass - r/o abscess - transaminitis due to reaction to antihormone tx vs liver/gb disease - Increased alk phos, tumor load vs bone mets vs liver/gb disease Plan - Trend fever, LFT - Consider abdominal u/s and hep panel - Pending blood, urine, wound culture - continue vanco and unasun (day 2) will s/r/d/w Dr. Isidro - Date & Time Date: 03/31/17 Time: 08:33 <Mamadou Isidro - Last Filed: 03/31/17 14:16> Meds - Medications Medications: Current Medications Acetaminophen (Tylenol 325mg Tab) 650 mg PO Q4H PRN PRN Reason: Pain, severe (8-10) Last Admin: 03/30/17 18:22 Dose: 650 mg Albuterol/Ipratropium (Duoneb 3 Mg/0.5 Mg (3 Ml) Ud) 3 ml IH [id number] [facility] Last Admin: 03/31/17 14:09 Dose: 3 ml Albuterol/Ipratropium (Duoneb 3 Mg/0.5 Mg (3 Ml) Ud) 3 ml IH Q2H PRN PRN Reason: Shortness of Breath Budesonide (Pulmicort Respules) 0.5 mg IH [id number] [facility] Calcium/Vitamin D (Oscal-D 250 Mg-125 Units Tab) 2 tab PO DAILY [facility] Fentanyl (Duragesic) 1 patch TD HS [facility] Last Admin: 03/30/17 21:57 Dose: 1 patch Ampicillin Sodium/Sulbactam Sodium (Unasyn 1 Gm-0.5 Gm) 1 gm in 100 mls @ 100 mls/hr IVPB Q6 [facility] PRN Reason: Protocol Last Admin: 03/31/17 05:26 Dose: 100 mls/hr Vancomycin HCl (Vancomycin 1gm) 1 gm in 250 mls @ 167 mls/hr IVPB Q12H [facility] PRN Reason: Protocol Last Admin: 03/31/17 05:27 Dose: 167 mls/hr Sodium Chloride (Sodium Chloride 0.9%) 1,000 mls @ 70 mls/hr IV .[id number] [facility] Insulin Human Regular (Humulin R High) 0 units SC ACHS [facility] PRN Reason: Protocol Last Admin: 03/31/17 11:53 Dose: 4 units Non-Formulary Medication (Potassium Gluconate [Potassium]) 40 meq PO DAILY [facility] Oxycodone HCl (Oxycodone Immediate Release Tab) 5 mg PO Q6H PRN PRN Reason: Pain, moderate (4-7) Results - Vital Signs Recent Vital Signs: Last Vital Signs Temp 99.5 F 03/31/17 08:00 Pulse 97 H 03/31/17 08:00 Resp 20 03/31/17 08:00 BP 138/63 03/31/17 08:00 Pulse Ox 100 03/31/17 08:00 - Labs Result Diagrams: 03/31/17 07:30 03/31/17 07:30 Labs: Laboratory Results - last 24 hr 03/30/17 03/30/17 03/30/17 16:00 16:30 19:38 WBC RBC Hgb Hct MCV MCH MCHC RDW Plt Count MPV pO2 37 42 VBG pH 7.45 H 7.51 H VBG pCO2 49.0 40.0 VBG HCO3 34.1 H 31.9 H VBG Total CO2 33.1 H VBG O2 Sat (Calc) 77.1 H 85.3 H VBG Base Excess 8.9 H 8.2 H VBG Potassium 3.9 Sodium 136.0 Chloride 100.0 Glucose 245 H Lactate 5.3 H* FiO2 21.0 Potassium Carbon Dioxide Anion Gap BUN Creatinine Est GFR ( Amer) Est GFR (Non-Af Amer) Random Glucose Calcium Total Bilirubin AST ALT Alkaline Phosphatase Total Protein Albumin Globulin Albumin/Globulin Ratio Venous Blood Potassium 3.9 Urine Color Yellow Urine Appearance Clear Urine pH 6.5 Ur Specific [place] 1.020 Urine Protein Negative Urine Glucose (UA) Negative Urine Ketones 15 H Urine Blood Negative Urine Nitrate Negative Urine Bilirubin Negative Urine Urobilinogen 0.2 Ur Leukocyte Esterase Negative Hepatitis A IgM Ab Hep Bs Antigen Hep B Core IgM Ab Hepatitis C Antibody 03/31/17 03/31/17 03/31/17 07:30 07:30 07:30 WBC 3.7 L RBC 3.01 L Hgb 9.3 L Hct 28.5 L MCV 94.7 MCH 30.9 MCHC 32.6 RDW 17.4 H Plt Count 112 L MPV 9.2 pO2 53 VBG pH 7.47 H VBG pCO2 44.0 VBG HCO3 32.0 H VBG Total CO2 33.4 H VBG O2 Sat (Calc) 92.9 H VBG Base Excess 7.5 H VBG Potassium 3.3 L Sodium 138.0 137 Chloride 100.0 97 L Glucose 161 H Lactate 2.9 H FiO2 21.0 Potassium 3.3 L Carbon Dioxide 30 Anion Gap 13 BUN 8 Creatinine 0.6 Est GFR ( Amer) > 60 Est GFR (Non-Af Amer) > 60 Random Glucose 151 H Calcium 8.0 L Total Bilirubin 0.6 AST 186 H ALT 36 Alkaline Phosphatase 287 H Total Protein 6.3 Albumin 3.1 Globulin 3.3 Albumin/Globulin Ratio 0.9 L Venous Blood Potassium 3.3 L Urine Color Urine Appearance Urine pH Ur Specific [place] Urine Protein Urine Glucose (UA) Urine Ketones Urine Blood Urine Nitrate Urine Bilirubin Urine Urobilinogen Ur Leukocyte Esterase Hepatitis A IgM Ab Hep Bs Antigen Hep B Core IgM Ab Hepatitis C Antibody 03/31/17 03/31/17 07:30 12:31 WBC RBC Hgb Hct MCV MCH MCHC RDW Plt Count MPV pO2 21 L VBG pH 7.45 H VBG pCO2 47.0 VBG HCO3 32.7 H VBG Total CO2 34.1 H VBG O2 Sat (Calc) 42.7 VBG Base Excess 7.5 H VBG Potassium 4.0 Sodium 137.0 Chloride 98.0 Glucose 231 H Lactate 4.2 H* FiO2 21.0 Potassium Carbon Dioxide Anion Gap BUN Creatinine Est GFR ( Amer) Est GFR (Non-Af Amer) Random Glucose Calcium Total Bilirubin AST ALT Alkaline Phosphatase Total Protein Albumin Globulin Albumin/Globulin Ratio Venous Blood Potassium 4.0 Urine Color Urine Appearance Urine pH Ur Specific [place] Urine Protein Urine Glucose (UA) Urine Ketones Urine Blood Urine Nitrate Urine Bilirubin Urine Urobilinogen Ur Leukocyte Esterase Hepatitis A IgM Ab Negative Hep Bs Antigen Negative Hep B Core IgM Ab Negative Hepatitis C Antibody Negative Assessment & Plan - Assessment and Plan (Free Text) Plan: Infectious Diseases Attending Physician Attestation Patient seen and examined, discussed with medical scientist. I have reviewed the pertinent clinical information for this patient. I agree with the above findings , assessment and plan. In addition, we will continue Vancomycin and Unasyn for this patient with probable bacterial superinfection of right breast area with breast cancer. Follow up wound cx and blood cx as well as CT chest.
[2017-03-31 08:00] LABS: VENOUS BLOOD GAS BASE EXCESS 7.5 mmol/L (0.0-2.0); VENOUS BLOOD GAS PO2 53 mm/Hg (30-55); VENOUS BLOOD PH 7.47 (7.32-7.43)
[2017-03-31 08:01] LABS: HEMOGLOBIN 9.3 g/dL (12.0-16.0); MEAN CELL VOLUME 94.7 fl (80.0-105.0); MEAN CORPUSCULAR HEMOGLOBIN 30.9 pg (25.0-35.0); MEAN CORPUSCULAR HGB CONC 32.6 g/dl (31.0-37.0); MEAN PLATELET VOLUME 9.2 fl (7.0-11.0); RBC 3.01 10^6/uL (3.5-6.1); RED CELL DISTRIBUTION WIDTH 17.4 % (11.5-14.5); WHITE BLOOD COUNT 3.7 10^3/ul (4.5-11.0)
[2017-03-31 08:14] LABS: ALB/GLOB RATIO 0.9 (1.1-1.8); ALBUMIN 3.1 g/dL (3.0-4.8); ALT/SGPT 36 U/L (7-56); AST/SGOT 186 U/L (15-39); BLOOD UREA NITROGEN 8 mg/dL (7-21); GFR AFRICAN-AMERICAN > 60; GFR NON-AFRICAN AMERICAN > 60
[2017-03-31] MEDS ORDERED: Albuterol-Ipratrop 3 mg / 0.5 (3 ml) UD IH PRN (08:18)
[2017-03-31] MEDS: Insulin Reg-HIGH-Coverage SC SCH ×4 (08:31→22:57)
[2017-03-31] MEDS ORDERED: oxyCODONE 5 mg Immediate Release Tab PO SCH (10:00)
--- NOTE | 2017-03-31 11:03 | PN ---
SUBJECTIVE: When I saw the patient, resting comfortably this morning in bed. She slept fairly well. She is having a cough now, which is new. I will call in a offset assistant press operator, Dr. Amor, to evaluate that. She is on DuoNeb, Duragesic, insulin, Os-Rafael, oxycodone, potassium, Pulmicort, IV fluids, Tylenol, Unasyn and Vancomycin. She has a right breast infection on top of the right breast cancer. PHYSICAL EXAMINATION VITAL SIGNS: She has a 98.2 temp, 99 pulse, 134/60 blood pressure, 16 respiratory rate and 97% O2 sat on room air. HEENT: Head is atraumatic and normocephalic. Throat is moist. NECK: Supple. HEART: Regular rate. LUNGS: Decreased breath sounds, fairly clear. Mild congestion, changes with cough and she is coughing. ABDOMEN: Soft, morbidly obese, nontender. Positive bowel sounds. EXTREMITIES: Trace edema. LABORATORY DATA: She had labs. She had a 3.7 white count, 9.3 hemoglobin and 28.5 hematocrit with 112 platelets. INR is 1.2. She has 137 sodium and potassium is 3.3, I want to give her some potassium. Today, BUN is 8, creatinine 0.6 and GFR is greater than 60. Sugar is 151, calcium is 8 and total bilirubin is 0.6. AST is 186, ALT is 36, alk phos is 287 and total protein is 6.3. ASSESSMENT AND PLAN: She is being seen by infectious disease, oncology and surgery. I am not sure if we are going to do any I and D on this or not. I will check her labs tomorrow. Get pulmonary involved for the cough. Get her out of bed to chair and she is here an infected right breast on top of her right breast cancer. Christian Stephens DO
[2017-03-31 12:42] LABS: VENOUS BLOOD GAS BASE EXCESS 7.5 mmol/L (0.0-2.0); VENOUS BLOOD GAS PO2 21 mm/Hg (30-55); VENOUS BLOOD PH 7.45 (7.32-7.43)
[2017-03-31 12:46] LABS: HEPATITIS B SURFACE AG NEGATIVE (NEGATIVE)
[2017-03-31 12:52] LABS: HEPATITIS A IGM NEGATIVE (NEGATIVE); HEPATITIS B CORE AB NEGATIVE (NEGATIVE)
[2017-03-31 13:04] LABS: HEPATITIS C ANTIBODY NEGATIVE (NEGATIVE)
[2017-03-31] MEDS ORDERED: Morphine 2 mg/ml ISec IVP ONE (13:45)
[2017-03-31] MEDS: Albuterol-Ipratrop 3 mg / 0.5 (3 ml) UD IH SCH ×2 (14:09→20:43)
[2017-03-31] MEDS: Calcium-Vit D 250 mg-125 Units Tab UD PO SCH (15:24)
[2017-03-31] MEDS: Sodium Chloride 0.9% 1,000 ML IV SCH ×2 (15:24→16:34)
[2017-03-31] MEDS: POTASSIUM GLUCONATE PO SCH (15:47)
[2017-03-31 18:23] LABS: VENOUS BLOOD GAS BASE EXCESS 6.9 mmol/L (0.0-2.0); VENOUS BLOOD GAS PO2 19 mm/Hg (30-55); VENOUS BLOOD PH 7.47 (7.32-7.43)
--- NOTE | 2017-03-31 19:00 | CON ---
PULMONARY CONSULTATION DATE: 03/31/2017 REFERRING PHYSICIAN: Christian Stephens DO REASON FOR CONSULTATION: Cough. HISTORY OF PRESENT ILLNESS: The patient is a 71-year-old female, with past medical history significant for advanced/stage IV breast cancer, metastatic disease to the bones and colon, recurrent bronchitis, who presents to [facility] with a right breast infection. Apparently, the patient saw her oncologist (Dr. Henderson) in the office. Dr. Henderson then noted the right breast infection, and sent the patient to the emergency room for admission. The patient denies shortness of breath at rest or dyspnea on exertion. She does state to a cough with minimal sputum production over the past few months. She actually states to periods of cough with minimal sputum production "on and off" for many years. There is no history of chest pain, coughing up blood, or chest pain -- made worse with deep respirations. The patient did present with fevers. No history of chills or infectious exposure. No history of night sweats. There has been a decrease in the appetite with weight loss as of recent. No history of calf pains. No history of syncope or diaphoresis. No history of recent travel or trauma. REVIEW OF SYSTEMS: No history of nausea, vomiting, or diarrhea. No acute urinary symptoms. No new neurologic complaints. Rest of the review of systems is negative. ALLERGIES: NO KNOWN ALLERGIES. SOCIAL HISTORY: Positive for former tobacco usage. No alcohol. FAMILY HISTORY: No inheritable diseases. HOME MEDICATIONS: Include oxycodone, fentanyl, potassium, and calcium. PHYSICAL EXAMINATION: GENERAL: The patient is not short of breath at rest. She is not using accessory muscles for breathing. VITAL SIGNS: Temperature is 98.2, pulse is 99, respirations 16, and blood pressure is 134/60. Oxygen saturation on room air is between 94% to 97%. HEENT: Normocephalic and atraumatic. NECK: No JVD. CARDIOVASCULAR: Positive S1 and S2. No S3. LUNGS: Decreased breath sounds at the bases. Minimal bilateral rhonchi. No wheezing. EXTREMITIES: No clubbing, cyanosis, or edema is noted. Calves are nontender to palpation. GASTROINTESTINAL: Abdomen is soft, nontender, and nondistended. Bowel sounds are positive. SKIN: The right breast is now bandaged. No acute rashes. NEUROLOGIC: Limited at the present time. PERTINENT LABORATORY DATA: Chest x-ray was done yesterday and reviewed. There is no acute disease. Complete metabolic profile: Chloride 92, glucose 228, and bilirubin 0.6. AST 213 and alkaline phosphates 375. LDH 6711. Rest of the metabolic profile is within normal limits. CBC: White count 3.7, hemoglobin 9.3, hematocrit 28.5, and platelets are 112. IMPRESSION: 1. Right breast infection. 2. Advanced, stage IV breast cancer. 3. Recurrent bronchitis. 4. Anemia. PLAN: The patient presents to [facility] with a right breast infection. Apparently, the patient saw her oncologist, (Dr. Henderson) in the office. Dr. Henderson then noticed the right breast infection, and sent to patient to the emergency room for admission. I did question the patient at length concerning her pulmonary status. She does state to periods of cough with minimal sputum production "for many years." She has never been on inhalers. She was a former smoker. On physical exam, there is minimal bronchospasm noted. There is no significant alveolar -- arterial gradient. Oxygen saturation on room air is 94% and 97%. I will start the patient on DuoNeb treatments and inhaled steroids. Infectious Diseases evaluation with Dr. Zuñiga is noted. The patient has been placed on antibiotic therapy. Input by oncology is also noted. Additional pulmonary intervention will be based on the clinical status of the patient. I did discuss the above with Dr. Stephens at length. Thank you very much for this pulmonary consultation. Andrey Amor MD MTDD
[2017-03-31] MEDS ORDERED: Iohexol 350 MG/100 ML VIAL ONE (20:41)
[2017-03-31] MEDS: Budesonide 0.5 mg/2 ml Inhal Susp UD IH SCH (20:43)
[2017-03-31] MEDS: oxyCODONE 5 mg Immediate Release Tab PO PRN (21:50)
--- NOTE | 2017-03-31 22:31 | CT ---
EXAM: CT Chest With Intravenous Contrast CLINICAL HISTORY: 71 years old, female; Condition or disease; Other: R/O breast abcess; metastatic breast cancer TECHNIQUE: Axial computed tomography images of the chest with intravenous contrast. All CT scans at this facility use one or more dose reduction techniques, viz.: automated exposure control; ma/kV adjustment per patient size (including targeted exams where dose is matched to indication; i.e. head); or iterative reconstruction technique. MIP reconstructed images were created and reviewed. Coronal and sagittal reformatted images were created and reviewed. CONTRAST: 100 mL of OMNI 350 administered intravenously. EXAM DATE/TIME: 03/31/2017 1:41 PM COMPARISON: DX - CHEST PORTABLE 03/30/2017 12:48:12 PM FINDINGS: Lungs and pleural spaces: Trachea and main bronchi are patent. There are small bilateral pleural effusions right greater than left. There are small scattered cysts bilaterally in the upper lobes There are multiple small bilateral pulmonary nodules. There is patchy right upper lobe airspace disease. There is subsegmental atelectasis in the right upper lobe. There is atelectasis and airspace disease in the right lower lobe in the costophrenic sulcus. There is minimal atelectasis and scarring in the right middle lobe. There is segmental left upper lobe interstitial and airspace disease with air bronchograms. There is minimal atelectasis at the left base. Thyroid: Thyroid is heterogeneous. Bones/joints: There are multiple sclerotic lesions in the spine, ribs, sternum and scapulae. Soft tissues: There is an incompletely imaged complex exophytic 4.3 x 4.9 x 5.5 cm right breast mass. There are cystic and solid components. There is minimal adjacent inflammation in adjacent fat. There is extensive skin thickening in the right breast. There are multiple additional nodular masses in the right breast. There is mild retraction of the left nipple. Heart and Vasculature: The heart is mildly enlarged. There is fluid in the pericardial recesses.There is no aneurysm or dissection.there is perfusion of the 3 arch vessels There are vascular calcifications.Pulmonary vessels are unremarkable. Lymph nodes: There are no pathologically enlarged mediastinal nodes. There is right hilar adenopathy. There is no definite left hilar adenopathy. Esophagus is unremarkable there is a small hiatal hernia. Upper abdomen: There are no acute abnormalities in the visualized portion of the abdomen. There is fatty infiltration of the liver.Pancreas is atrophic. Gallbladder is surgically absent. Common bile duct is prominent. 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
[2017-04-01] MEDS: Albuterol-Ipratrop 3 mg / 0.5 (3 ml) UD IH SCH ×4 (01:38→20:04)
[2017-04-01] MEDS: Vancomycin 1gm in NS 250ml 1 GM/250 ML BAG IVPB SCH ×2 (06:20→16:58)
[2017-04-01 06:51] LABS: VENOUS BLOOD GAS BASE EXCESS 4.4 mmol/L (0.0-2.0); VENOUS BLOOD GAS PO2 45 mm/Hg (30-55); VENOUS BLOOD PH 7.44 (7.32-7.43)
[2017-04-01 06:52] LABS: HEMOGLOBIN 9.5 g/dL (12.0-16.0); MEAN CELL VOLUME 95.1 fl (80.0-105.0); MEAN CORPUSCULAR HEMOGLOBIN 30.9 pg (25.0-35.0); MEAN CORPUSCULAR HGB CONC 32.5 g/dl (31.0-37.0); MEAN PLATELET VOLUME 8.7 fl (7.0-11.0); RBC 3.07 10^6/uL (3.5-6.1); RED CELL DISTRIBUTION WIDTH 17.5 % (11.5-14.5)
--- NOTE | 2017-04-01 06:56 | CP.PCM.PN ---
<Kim Perry - Last Filed: 04/01/17 13:13> Subjective - Date & Time of Evaluation Date of Evaluation: 04/01/17 Time of Evaluation: 06:54 - Subjective Subjective: PGY-[address] Isidro Mild fever today Pt is happy no need for i&d Denies diarrhea, sob, cp (+) cough Objective - Vital Signs/Intake and Output Vital Signs (last 24 hours): Temp Pulse Resp BP Pulse Ox 99.8 F H 115 H 20 140/63 94 L 03/31/17 16:00 03/31/17 16:00 03/31/17 16:00 03/31/17 16:00 03/31/17 16:00 Intake and Output: 03/31/17 04/01/17 18:59 06:59 Intake Total 480 360 Balance 480 360 - Medications Medications: Current Medications Acetaminophen (Tylenol 325mg Tab) 650 mg PO Q4H PRN PRN Reason: Pain, severe (8-10) Last Admin: 03/30/17 18:22 Dose: 650 mg Albuterol/Ipratropium (Duoneb 3 Mg/0.5 Mg (3 Ml) Ud) 3 ml IH [id number] [facility] Last Admin: 04/01/17 01:38 Dose: 3 ml Albuterol/Ipratropium (Duoneb 3 Mg/0.5 Mg (3 Ml) Ud) 3 ml IH Q2H PRN PRN Reason: Shortness of Breath Benzonatate (Tessalon Perles) 100 mg PO BID [facility] Last Admin: 03/31/17 17:33 Dose: 100 mg Budesonide (Pulmicort Respules) 0.5 mg IH [id number] [facility] Last Admin: 03/31/17 20:43 Dose: Not Given Calcium/Vitamin D (Oscal-D 250 Mg-125 Units Tab) 2 tab PO DAILY [facility] Last Admin: 03/31/17 15:24 Dose: 2 tab Fentanyl (Duragesic) 1 patch TD HS [facility] Last Admin: 03/31/17 21:50 Dose: 1 patch Ampicillin Sodium/Sulbactam Sodium (Unasyn 1 Gm-0.5 Gm) 1 gm in 100 mls @ 100 mls/hr IVPB Q6 [facility] PRN Reason: Protocol Last Admin: 04/01/17 05:16 Dose: 100 mls/hr Vancomycin HCl (Vancomycin 1gm) 1 gm in 250 mls @ 167 mls/hr IVPB Q12H [facility] PRN Reason: Protocol Last Admin: 04/01/17 06:20 Dose: 167 mls/hr Sodium Chloride (Sodium Chloride 0.9%) 1,000 mls @ 70 mls/hr IV .[id number] [facility] Last Admin: 03/31/17 16:34 Dose: 70 mls/hr Insulin Human Regular (Humulin R High) 0 units SC ACHS [facility] PRN Reason: Protocol Last Admin: 03/31/17 22:57 Dose: Not Given Non-Formulary Medication (Potassium Gluconate [Potassium]) 40 meq PO DAILY [facility] Last Admin: 03/31/17 15:47 Dose: Not Given Oxycodone HCl (Oxycodone Immediate Release Tab) 5 mg PO Q6H PRN PRN Reason: Pain, moderate (4-7) Last Admin: 03/31/17 21:50 Dose: 5 mg - Labs Labs: 03/31/17 07:30 03/31/17 07:30 PT 13.0 Seconds (9.9-11.8) H 03/30/17 13:40 INR 1.20 (0.93-1.08) H 03/30/17 13:40 APTT 28.2 Seconds (23.7-30.8) 03/30/17 13:40 - Constitutional Appears: No Acute Distress - Head Exam Head Exam: ATRAUMATIC, NORMAL INSPECTION, NORMOCEPHALIC - Eye Exam Eye Exam: EOMI, Normal appearance, PERRL. absent: Scleral icterus Pupil Exam: NORMAL ACCOMODATION - ENT Exam ENT Exam: Mucous Membranes Moist - Neck Exam Additional comments: supple - Respiratory Exam Respiratory Exam: Clear to Ausculation Bilateral. absent: Rales, Rhonchi, Wheezes, Respiratory Distress - Cardiovascular Exam Cardiovascular Exam: REGULAR RHYTHM, +S1, +S2 Additional comments: dressing d/c/i - GI/Abdominal Exam GI & Abdominal Exam: Soft, Normal Bowel Sounds. absent: Guarding, Rigid, Tenderness - Extremities Exam Extremities Exam: Normal Capillary Refill. absent: Calf Tenderness - Back Exam Back Exam: absent: CVA tenderness (L), CVA tenderness (R) - Neurological Exam Neurological Exam: Alert, Awake, Oriented x3 - Psychiatric Exam Psychiatric exam: Anxious, Normal Mood - Skin Skin Exam: Dry, Warm Assessment and Plan - Assessment and Plan (Free Text) Plan: 71 y/o F w/ PMHx of stage 4 breast Ca mets to bone and colon, presents to the ED c/o worsened pain on R breast mass, with incrased drainage, associated with fever. - Sepsis likely from infected breast mass - r/o abscess - transaminitis due to reaction to antihormone tx vs liver/gb disease - Increased alk phos, tumor load vs bone mets vs liver/gb disease Plan - Trend fever, LFT - Consider abdominal u/s and hep panel - Pending blood, urine, wound culture - continue vanco (day 3) - Add doxycyclin and zosyn for added atypical and pseudo coverage - D/C unasyn. Had s/p unasyn (day 3) Imaging CT-chest with IV contrast (03/31/17) - 4.3 x 4.9 x 5.5 cm exophytic R breast mass with adjacent skin thickening and multiple nodules suggestive of neoplasm than absess; diffuse bony metastatic disease; multiple pulmonary nodules consistent with metasistasis; R hilar adenopathy; L upper lobe opacity infection vs focal lymphagitic carcinomatosis Culture - blood culture no growth x 1 day - urine no growth s/r/d/w Dr. Isidro <Mamadou Isidro - Last Filed: 04/01/17 16:01> Objective - Vital Signs/Intake and Output Vital Signs (last 24 hours): Temp Pulse Resp BP Pulse Ox 99.3 F 96 H 18 121/57 L 94 L 04/01/17 07:57 04/01/17 07:57 04/01/17 07:57 04/01/17 07:57 04/01/17 07:57 Intake and Output: 04/01/17 04/01/17 06:59 18:59 Intake Total 360 600 Balance 360 600 - Medications Medications: Current Medications Acetaminophen (Tylenol 325mg Tab) 650 mg PO Q4H PRN PRN Reason: Pain, severe (8-10) Last Admin: 04/01/17 14:07 Dose: 650 mg Albuterol/Ipratropium (Duoneb 3 Mg/0.5 Mg (3 Ml) Ud) 3 ml IH [id number] [facility] Last Admin: 04/01/17 13:23 Dose: 3 ml Albuterol/Ipratropium (Duoneb 3 Mg/0.5 Mg (3 Ml) Ud) 3 ml IH Q2H PRN PRN Reason: Shortness of Breath Benzonatate (Tessalon Perles) 100 mg PO BID [facility] Last Admin: 04/01/17 09:41 Dose: 100 mg Budesonide (Pulmicort Respules) 0.5 mg IH [id number] [facility] Last Admin: 04/01/17 08:53 Dose: 0.5 mg Calcium/Vitamin D (Oscal-D 250 Mg-125 Units Tab) 2 tab PO DAILY [facility] Last Admin: 04/01/17 09:41 Dose: 2 tab Fentanyl (Duragesic) 1 patch TD HS [facility] Last Admin: 03/31/17 21:50 Dose: 1 patch Vancomycin HCl (Vancomycin 1gm) 1 gm in 250 mls @ 167 mls/hr IVPB Q12H [facility] PRN Reason: Protocol Last Admin: 04/01/17 06:20 Dose: 167 mls/hr Sodium Chloride (Sodium Chloride 0.9%) 1,000 mls @ 70 mls/hr IV .[id number] [facility] Piperacillin Sod/Tazobactam Sod (Zosyn 3.375 In Ns 100ml) 100 mls @ 200 mls/hr IVPB Q6 [facility] PRN Reason: Protocol Stop: 04/06/17 18:01 Doxycycline Hyclate 100 mg/ (Sodium Chloride) 100 mls @ 100 mls/hr IVPB Q12 [facility] PRN Reason: Protocol Last Admin: 04/01/17 14:49 Dose: 100 mls/hr Insulin Human Regular (Humulin R High) 0 units SC ACHS [facility] PRN Reason: Protocol Last Admin: 04/01/17 11:31 Dose: 7 units Non-Formulary Medication (Potassium Gluconate [Potassium]) 40 meq PO DAILY [facility] Last Admin: 04/01/17 09:42 Dose: Not Given Oxycodone HCl (Oxycodone Immediate Release Tab) 5 mg PO Q6H PRN PRN Reason: Pain, moderate (4-7) Last Admin: 04/01/17 15:38 Dose: 5 mg - Labs Labs: 04/01/17 06:20 04/01/17 06:20 PT 13.0 Seconds (9.9-11.8) H 03/30/17 13:40 INR 1.20 (0.93-1.08) H 03/30/17 13:40 APTT 28.2 Seconds (23.7-30.8) 03/30/17 13:40 Assessment and Plan - Assessment and Plan (Free Text) Plan: Infectious Diseases Attending Physician Attestation Patient seen and examined, discussed with medical technologist chief. I have reviewed the pertinent clinical information for this patient. I agree with the above findings , assessment and plan. In addition, we have reviewed CT chest which shows left sided pneumonia - will continue Vancomycin and change Unasyn to Zosyn for this patient with probable bacterial superinfection of right breast area with breast cancer as well.
[2017-04-01 07:09] LABS: ALB/GLOB RATIO 0.9 (1.1-1.8); ALT/SGPT 30 U/L (7-56); AST/SGOT 195 U/L (15-39); BLOOD UREA NITROGEN 6 mg/dL (7-21); GFR AFRICAN-AMERICAN > 60; GFR NON-AFRICAN AMERICAN > 60
[2017-04-01] MEDS: Insulin Reg-HIGH-Coverage SC SCH ×4 (07:41→21:07)
[2017-04-01] MEDS: Budesonide 0.5 mg/2 ml Inhal Susp UD IH SCH ×2 (08:53→20:04)
[2017-04-01] MEDS: Calcium-Vit D 250 mg-125 Units Tab UD PO SCH (09:41)
[2017-04-01] MEDS: oxyCODONE 5 mg Immediate Release Tab PO PRN ×3 (09:41→21:18)
[2017-04-01] MEDS: POTASSIUM GLUCONATE PO SCH (09:42)
--- NOTE | 2017-04-01 11:29 | PN ---
DATE: 04/01/2017 PULMONARY NOTE SUBJECTIVE: The patient appears comfortable this morning. She is not short of breath at rest. She is coughing less. PHYSICAL EXAMINATION: VITAL SIGNS: Last temperature recorded 99.8, pulse this morning 88, respirations 18, last blood pressure recorded 140/63. Oxygen saturation on room air is between 94% to 100%. HEENT: Normocephalic and atraumatic. NECK: No JVD. CARDIOVASCULAR: Positive S1 and S2. No S3. LUNGS: Decreased breath sound at the bases. Less rhonchi. No wheezing. EXTREMITIES: No clubbing, cyanosis, or edema. Calves are nontender to palpation. GASTROINTESTINAL: Abdomen is soft, nontender, and nondistended. Bowel sounds are positive. SKIN: The right breast remains bandaged. No acute rashes. NEUROLOGIC: Limited at the present time. PERTINENT LABORATORY DATA: CAT scan of the chest was done and reviewed. There is a large exophytic right breast mass noted. There are multiple small pulmonary nodules seen - consistent with metastasis. There is also mild right hilar adenopathy. There are also some mild bilateral focal opacities noted. IMPRESSION: 1. Right breast infection. 2. Advanced, stage IV breast cancer. 3. Colon, bone, and lung metastasis. 4. Recurrent bronchitis. 5. Anemia. PLAN: The patient appears comfortable this morning. She is not short of breath at rest. She is coughing less. She does state to feeling better overall. On physical exam, there is certainly less bronchospasm noted. In addition, the oxygen saturation on room air is 94% to 100%. I will continue with the current nebulizer treatments and inhaled steroids for now. CAT scan of the chest is noted above. I will continue with the antibiotic coverage as per Infectious Disease. Inputs are noted. Temperatures are resolving. I will continue with the surgical evaluation. Clinical status of the patient does appear improved - compared to the initial status. However, unfortunately, this patient has widespread metastasis, and her overall prognosis is poor. All are aware. I will discuss the above with Dr. Stephens this morning. Andrey Amor MD
--- NOTE | 2017-04-01 13:16 | PN ---
SUBJECTIVE: I saw Katerin resting comfortably in bed. She is quite nervous. She is probably go for a procedure of the right breast whether be I and D or a surgical intervention and she wants to be put out and sedated. She is very nervous about that or she does not want to have local, so I will talk with the surgery about that. She is currently on DuoNeb, Duragesic patch, insulin, Os-Rafael, oxycodone, potassium, Pulmicort, IV fluids, Tessalon, Tylenol, Unasyn and vancomycin. She is eating okay. PHYSICAL EXAMINATION: VITAL SIGNS: She has 99.3 temp. She was 99.8 still high, 96 pulse, 121/57 blood pressure, 18 respiratory rate and 100% O2 sat on room air. HEENT: Head is atraumatic and normocephalic. HEART: Regular rate. LUNGS: Decreased breath sounds, but clear. ABDOMEN: Soft, obese. EXTREMITIES: No edema. SKIN: Right breast cancer with a mass and oozing with infection. LABORATORY DATA: She has 4 white count, 9.5 hemoglobin, 29.2 hematocrit with 105 platelets. She has 140 sodium, potassium 3.6, BUN is 6, creatinine 0.6 and GFR is greater than 60. Sugar is 158, calcium is 8 and total bilirubin is 0.6. AST is 195, ALT is 30, alk phos is 276, troponin 0.07 and total protein is 6.3. ASSESSMENT AND PLAN: She is being seen by oncology and surgery. She had a CT done which showed incompletely imaged 4.3 x 4.9 x 5.5 cm exophytic right breast mass with adjacent skin thickening and multiple additional nodules more suggestive of neoplasm and abscess. Diffuse bony metastatic disease, multiple pulmonary nodules consistent of metastatic right hilar adenopathy, left upper lobe opacity, infection versus focal lymphangitic carcinomatosis. We know about that she is being seen by oncology. Has also a consult with pulmonary. I will do a procedure. Also infectious disease on the case. We will continue residential treatment and care. Check her labs tomorrow. Hopefully, they can sedate her for this procedure of the right breast. Christian Stephens DO
[2017-04-01] MEDS: Sodium Chloride 0.9% 1,000 ML IV SCH (16:53)
[2017-04-01] MEDS: Piperacillin/Tazobact 3.375 gm 100 ML IVPB SCH ×2 (16:59→23:25)
[2017-04-02] MEDS: Vancomycin 1gm in NS 250ml 1 GM/250 ML BAG IVPB SCH ×2 (05:06→17:31)
[2017-04-02] MEDS: oxyCODONE 5 mg Immediate Release Tab PO PRN ×3 (05:12→20:13)
[2017-04-02] MEDS: Piperacillin/Tazobact 3.375 gm 100 ML IVPB SCH ×3 (06:38→18:30)
[2017-04-02] MEDS: Albuterol-Ipratrop 3 mg / 0.5 (3 ml) UD IH SCH ×3 (07:36→19:21)
[2017-04-02] MEDS: Budesonide 0.5 mg/2 ml Inhal Susp UD IH SCH ×2 (07:36→19:21)
[2017-04-02 07:48] LABS: HEMOGLOBIN 9.1 g/dL (12.0-16.0); MEAN CELL VOLUME 95.3 fl (80.0-105.0); MEAN CORPUSCULAR HEMOGLOBIN 30.8 pg (25.0-35.0); MEAN CORPUSCULAR HGB CONC 32.4 g/dl (31.0-37.0); RBC 2.95 10^6/uL (3.5-6.1); RED CELL DISTRIBUTION WIDTH 17.8 % (11.5-14.5)
[2017-04-02 08:08] LABS: ALBUMIN 2.9 g/dL (3.0-4.8); ALT/SGPT 30 U/L (7-56); AST/SGOT 230 U/L (15-39); BLOOD UREA NITROGEN 5 mg/dL (7-21); CALCIUM 8.2 mg/dL (8.4-10.5); GFR AFRICAN-AMERICAN > 60; GFR NON-AFRICAN AMERICAN > 60
[2017-04-02] MEDS: Insulin Reg-HIGH-Coverage SC SCH ×4 (08:15→22:41)
[2017-04-02] MEDS ORDERED: Morphine 2 mg/ml ISec IVP PRN (08:46)
[2017-04-02] MEDS: Calcium-Vit D 250 mg-125 Units Tab UD PO SCH (09:58)
[2017-04-02] MEDS: Benzocaine/Menthol (Cepacol) Lozenge MT PRN ×3 (09:59→20:13)
[2017-04-02] MEDS: POTASSIUM GLUCONATE PO SCH (10:00)
[2017-04-02] MEDS: Sodium Chloride 0.9% 1,000 ML IV SCH (10:07)
--- NOTE | 2017-04-02 14:37 | CP.PCM.PN ---
Subjective - Date & Time of Evaluation Date of Evaluation: 04/02/17 Time of Evaluation: 07:50 - Subjective Subjective: Herb Gates D.O. PGY-2, Internal Medicine 71 year old female with a PMH of stage 4 breast CA with metastases to bone and colon who presented to the [facility] ER with complaints of worsened pain on right breast mass with associated drainage and fever. Patient was seen and examined at bedside. Patient states that continues to have diffuse body pains that are no longer being alleviated by the fentanyl patch and the PRN oxycodone. Patient relates that she was unable to get much if any sleep last night due to this pain. Patient also relates how she sometimes gets more coughing after a nebulizer treatment but that they do help her somewhat with her breathing. No acute overnight events. Objective - Vital Signs/Intake and Output Vital Signs (last 24 hours): Temp Pulse Resp BP Pulse Ox 99 F 96 H 18 141/61 93 L 04/02/17 08:24 04/02/17 08:24 04/02/17 08:24 04/02/17 08:24 04/02/17 08:24 Intake and Output: 04/02/17 04/02/17 06:59 18:59 Intake Total 3000 Balance 3000 - Medications Medications: Current Medications Acetaminophen (Tylenol 325mg Tab) 650 mg PO Q4H PRN PRN Reason: Pain, severe (8-10) Last Admin: 04/02/17 08:23 Dose: 650 mg Albuterol/Ipratropium (Duoneb 3 Mg/0.5 Mg (3 Ml) Ud) 3 ml IH [id number] [facility] Last Admin: 04/02/17 13:32 Dose: 3 ml Albuterol/Ipratropium (Duoneb 3 Mg/0.5 Mg (3 Ml) Ud) 3 ml IH Q2H PRN PRN Reason: Shortness of Breath Benzocaine/Menthol (Cepacol Sore Throat) 1 reno MT Q2H PRN PRN Reason: Sore Throat Last Admin: 04/02/17 09:59 Dose: 1 reno Benzonatate (Tessalon Perles) 100 mg PO BID [facility] Last Admin: 04/02/17 09:58 Dose: 100 mg Budesonide (Pulmicort Respules) 0.5 mg IH [id number] [facility] Last Admin: 04/02/17 07:36 Dose: 0.5 mg Calcium/Vitamin D (Oscal-D 250 Mg-125 Units Tab) 2 tab PO DAILY [facility] Last Admin: 04/02/17 09:58 Dose: 2 tab Fentanyl (Duragesic) 1 patch TD Q72H [facility] Last Admin: 04/02/17 09:57 Dose: Not Given Vancomycin HCl (Vancomycin 1gm) 1 gm in 250 mls @ 167 mls/hr IVPB Q12H [facility] PRN Reason: Protocol Last Admin: 04/02/17 05:06 Dose: 167 mls/hr Sodium Chloride (Sodium Chloride 0.9%) 1,000 mls @ 70 mls/hr IV .[id number] [facility] Last Admin: 04/02/17 10:07 Dose: 70 mls/hr Piperacillin Sod/Tazobactam Sod (Zosyn 3.375 In Ns 100ml) 100 mls @ 200 mls/hr IVPB Q6 [facility] PRN Reason: Protocol Stop: 04/06/17 18:01 Last Admin: 04/02/17 12:06 Dose: 200 mls/hr Doxycycline Hyclate 100 mg/ (Sodium Chloride) 100 mls @ 100 mls/hr IVPB Q12 [facility] PRN Reason: Protocol Last Admin: 04/02/17 09:58 Dose: 100 mls/hr Insulin Human Regular (Humulin R High) 0 units SC ACHS [facility] PRN Reason: Protocol Last Admin: 04/02/17 12:05 Dose: 4 units Morphine Sulfate (Morphine) 2 mg IVP Q4H PRN PRN Reason: Pain, severe (8-10) Non-Formulary Medication (Potassium Gluconate [Potassium]) 40 meq PO DAILY [facility] Last Admin: 04/02/17 10:00 Dose: Not Given Oxycodone HCl (Oxycodone Immediate Release Tab) 5 mg PO Q6H PRN PRN Reason: Pain, moderate (4-7) Last Admin: 04/02/17 12:16 Dose: 5 mg - Labs Labs: 04/02/17 07:30 04/02/17 07:30 PT 13.0 Seconds (9.9-11.8) H 03/30/17 13:40 INR 1.20 (0.93-1.08) H 03/30/17 13:40 APTT 28.2 Seconds (23.7-30.8) 03/30/17 13:40 - Constitutional Appears: well nourished, pleasant - Head Exam Head Exam: ATRAUMATIC, NORMOCEPHALIC - Eye Exam Eye Exam: EOMI, Normal appearance, PERRL. absent: Scleral icterus - ENT Exam ENT Exam: Mucous Membranes Moist, no pharyngeal erythema or exudate, no thrush - Neck Exam Additional comments: soft, supple - Respiratory Exam Respiratory Exam: Clear to Auscultation Bilateral. absent: Rales, Rhonchi, Wheezes - Cardiovascular Exam Cardiovascular Exam: REGULAR RHYTHM, +S1, +S2 - GI/Abdominal Exam GI & Abdominal Exam: Normal Bowel Sounds, Soft. absent: Distended, Firm, Guarding, Rigid, Tenderness - Exam Additional comments: right breast with dressing in place c/d/i, mildly tender, no issues with left breast - Extremities Exam Extremities exam: Positive for: pedal pulses present. Negative for: calf tenderness, pedal edema - Back Exam Back exam: absent: CVA tenderness (L), CVA tenderness (R) - Neurological Exam Neurological exam: Awake, Alert, Oriented x4 - Skin Skin Exam: Dry, Warm Assessment and Plan - Assessment and Plan (Free Text) Assessment: 71 year old female with a PMH of stage 4 breast CA with metastases to bone and colon who presented to the [facility] ER with complaints of worsened pain on right breast mass with associated drainage and fever. Plan: 1. 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 ID, Hem/Onc, and surgery followings, recs appreciated No surgical intervention at this time Continues on vancomycin Day 3 and now doxycyline/zosyn day 2 Procal negative Influenza negative Chest CT shows: "Incompletely imaged 4.3 x 4.9 x 5.5 cm exophytic right breast mass with adjacent skin thickening and multiple additional nodules more, suggestive of neoplasm than abscess; diffuse bony metastatic disease; multiple pulmonary nodules consistent with metastasis; right hilar adenopathy; left upper lobe opacity infection versus focal lymphangitic carcinomatosis" Per Hem/Onc possibly can start xeloda as outpatient once clinically stable Given that fentanyl and oxycodone are no longer effective will add morphine PRN to pain regimen and monitor response 2. Recurrent bronchitis Pulmonology following, recs are appreciated Continue q6h and q2h PRN nebs On benzonate with continued discomfort, added cepacol, will monitor response Continue budesonide 3. Hyperglycemia No noted hx of DM but fingersticks 140-280s Will get HgbA1C for tomorrow AM Continue RISS high 4. Transaminitis Solely AST and Alk phos, no ALT elevation, possible metastases in liver Hepatitis panel was negative At this time will continue to monitor, f/u tomorrow CMP 5. Pancytopenia Likely 2/2 breast CA Hem/Onc following No active bleeding Hemodynamically stable Continue to monitor 6. Hypovitaminosis D Continue supplementation 7. Hx arthritis Continue on pain regimen as above 8. Pseudohypocalcemia Velvet Ca is 9.08 9. Hypokalemia - resolved GI/DVT ppx: protonix/SCDs Patient was seen and examined and case was discussed at length with attending physician.
[2017-04-02 16:08] VITALS: RESP 20
--- NOTE | 2017-04-02 16:12 | PN ---
PULMONARY PROGRESS NOTE DATE: 04/02/2017 LOCATION: 575, bed 2. SUBJECTIVE: Ms. Joshi is a 71-year-old woman who was seen by the associate Dr. Amor. She is feeling well with no respiratory distress. Minimal coughing is heard, but there is no expectoration. She is feeling well. PHYSICAL EXAMINATION: VITAL SIGNS: Stable. She has a low-grade fever yesterday. This morning, she is afebrile. Blood pressure 140/60, heart rate 70, respiratory rate 18, and O2 saturation is 98% this a.m. HEENT: Normocephalic and atraumatic. NECK: Supple. No JVD. No lymphadenopathy. CARDIOVASCULAR: Regular rhythm, S1 and S2 without murmur, gallop, or rub. LUNGS: Decreased breath sounds throughout. No rales, rhonchi, or wheezes appreciated. Rhonchi resolves with cough leaving distant breath sounds, but clear lungs. ABDOMEN: Soft, bowel sounds normoactive without mass, guarding, rebound, or organomegaly. EXTREMITIES: Reveal no clubbing, cyanosis, or edema. There is no Kari signs. SKIN: No rashes or excoriation. NEUROLOGIC: No focal findings. LABORATORY DATA: The CAT scan of the chest has been reviewed. There is a breast mass noted with multiple metastasis seen in the lung, bones, lymph nodes, and other areas. CLINICAL IMPRESSION: 1. Breast mass. 2. Lung cancer. 3. Metastatic lung cancer to colon, bone, lymph nodes, and lungs. PLAN: Since the patient remains comfortable, she needs no further change in bronchodilators, but she does however need to be evaluated by oncology and she is not a surgical candidate due to the stage IV disease with distant metastasis. She should continue on her inhaled bronchodilators and corticosteroids, monitor temperature curve to make sure that there is no further infectious process, although this is likely in the breast and not in the lungs. Primary doctor, Dr. Stephens who have to discuss with Oncology, the patient and with her family regarding further care. This is definitely a time to discussive palliative care and code status. As the prognosis appears to be poor, this discussion is essential before further intervention is suggested, Kindly let us know the results of such discussion so that we can proceed according to their wishes.. Thank you for the opportunity to see this patient. Kapil Prescott MD [facility] # [id number] [facility]
--- NOTE | 2017-04-02 21:13 | CP.PCM.PN ---
Subjective - Date & Time of Evaluation Date of Evaluation: 04/02/17 Time of Evaluation: 12:25 - Subjective Subjective: Patient is still having generalized weakness but a little better, still not able to sleep well. No fevers overnight, no nausea, no diarrhea. Objective - Vital Signs/Intake and Output Vital Signs (last 24 hours): Temp Pulse Resp BP Pulse Ox 99 F 96 H 18 141/61 93 L 04/02/17 08:24 04/02/17 08:24 04/02/17 08:24 04/02/17 08:24 04/02/17 08:24 Intake and Output: 04/02/17 04/02/17 06:59 18:59 Intake Total 3000 Balance 3000 - Medications Medications: Current Medications Acetaminophen (Tylenol 325mg Tab) 650 mg PO Q4H PRN PRN Reason: Pain, severe (8-10) Last Admin: 04/02/17 08:23 Dose: 650 mg Albuterol/Ipratropium (Duoneb 3 Mg/0.5 Mg (3 Ml) Ud) 3 ml IH [id number] [facility] Last Admin: 04/02/17 07:36 Dose: 3 ml Albuterol/Ipratropium (Duoneb 3 Mg/0.5 Mg (3 Ml) Ud) 3 ml IH Q2H PRN PRN Reason: Shortness of Breath Benzocaine/Menthol (Cepacol Sore Throat) 1 reno MT Q2H PRN PRN Reason: Sore Throat Last Admin: 04/02/17 09:59 Dose: 1 reno Benzonatate (Tessalon Perles) 100 mg PO BID [facility] Last Admin: 04/02/17 09:58 Dose: 100 mg Budesonide (Pulmicort Respules) 0.5 mg IH [id number] [facility] Last Admin: 04/02/17 07:36 Dose: 0.5 mg Calcium/Vitamin D (Oscal-D 250 Mg-125 Units Tab) 2 tab PO DAILY [facility] Last Admin: 04/02/17 09:58 Dose: 2 tab Fentanyl (Duragesic) 1 patch TD Q72H [facility] Last Admin: 04/02/17 09:57 Dose: Not Given Vancomycin HCl (Vancomycin 1gm) 1 gm in 250 mls @ 167 mls/hr IVPB Q12H [facility] PRN Reason: Protocol Last Admin: 04/02/17 05:06 Dose: 167 mls/hr Sodium Chloride (Sodium Chloride 0.9%) 1,000 mls @ 70 mls/hr IV .[id number] [facility] Last Admin: 04/02/17 10:07 Dose: 70 mls/hr Piperacillin Sod/Tazobactam Sod (Zosyn 3.375 In Ns 100ml) 100 mls @ 200 mls/hr IVPB Q6 [facility] PRN Reason: Protocol Stop: 04/06/17 18:01 Last Admin: 04/02/17 06:38 Dose: 200 mls/hr Doxycycline Hyclate 100 mg/ (Sodium Chloride) 100 mls @ 100 mls/hr IVPB Q12 [facility] PRN Reason: Protocol Last Admin: 04/02/17 09:58 Dose: 100 mls/hr Insulin Human Regular (Humulin R High) 0 units SC ACHS [facility] PRN Reason: Protocol Last Admin: 04/02/17 08:15 Dose: Not Given Morphine Sulfate (Morphine) 2 mg IVP Q4H PRN PRN Reason: Pain, severe (8-10) Non-Formulary Medication (Potassium Gluconate [Potassium]) 40 meq PO DAILY [facility] Last Admin: 04/02/17 10:00 Dose: Not Given Oxycodone HCl (Oxycodone Immediate Release Tab) 5 mg PO Q6H PRN PRN Reason: Pain, moderate (4-7) Last Admin: 04/02/17 05:12 Dose: 5 mg - Labs Labs: 04/02/17 07:30 04/02/17 07:30 PT 13.0 Seconds (9.9-11.8) H 03/30/17 13:40 INR 1.20 (0.93-1.08) H 03/30/17 13:40 APTT 28.2 Seconds (23.7-30.8) 03/30/17 13:40 - Constitutional Appears: Non-toxic, No Acute Distress - Head Exam Head Exam: NORMAL INSPECTION - Respiratory Exam Respiratory Exam: Decreased Breath Sounds - Cardiovascular Exam Cardiovascular Exam: +S1, +S2 - GI/Abdominal Exam GI & Abdominal Exam: Soft. absent: Tenderness Assessment and Plan - Assessment and Plan (Free Text) Plan: Assessment Sepsis due to left sided healthcare-associated pneumonia and probable superinfection of the breast cancer area Breast cancer obesity with BMI 30 Plan continue Vancomycin, Zosyn and Doxycycline (day 3) to complete a 4-7 day course will continue to monitor clinically
[2017-04-03] MEDS: Albuterol-Ipratrop 3 mg / 0.5 (3 ml) UD IH SCH ×4 (01:01→19:37)
[2017-04-03] MEDS: Piperacillin/Tazobact 3.375 gm 100 ML IVPB SCH ×4 (01:27→18:58)
[2017-04-03] MEDS: Vancomycin 1gm in NS 250ml 1 GM/250 ML BAG IVPB SCH ×2 (05:12→17:25)
[2017-04-03] MEDS: Budesonide 0.5 mg/2 ml Inhal Susp UD IH SCH ×2 (07:30→14:05)
[2017-04-03] MEDS: Insulin Reg-HIGH-Coverage SC SCH ×4 (08:12→22:06)
[2017-04-03] MEDS: Calcium-Vit D 250 mg-125 Units Tab UD PO SCH (09:16)
[2017-04-03] MEDS: POTASSIUM GLUCONATE PO SCH (09:17)
[2017-04-03 09:37] LABS: BASO # 0.03 K/mm3 (0.0-2.0); BASO % 0.6 % (0.0-3.0); EOS # 0.1 (0.0-0.7); EOS % 1.8 % (1.5-5.0); GRAN # 2.63 (1.4-6.5); GRAN % 53.4 % (50.0-68.0); HEMOGLOBIN 9.2 g/dL (12.0-16.0); LYMPH # 1.5 (1.2-3.4); LYMPH % 29.4 % (22.0-35.0); MEAN CELL VOLUME 94.6 fl (80.0-105.0); MEAN CORPUSCULAR HEMOGLOBIN 31.3 pg (25.0-35.0); MEAN CORPUSCULAR HGB CONC 33.1 g/dl (31.0-37.0); MONO # 0.7 (0.1-0.6); MONO % 14.8 % (1.0-6.0); PLATELET COUNT 83 10^3/uL (120.0-450.0); RBC 2.94 10^6/uL (3.5-6.1); RED CELL DISTRIBUTION WIDTH 18.1 % (11.5-14.5); WHITE BLOOD COUNT 4.9 10^3/ul (4.5-11.0)
[2017-04-03 09:49] LABS: ALBUMIN 2.9 g/dL (3.0-4.8); ALT/SGPT 28 U/L (7-56); AST/SGOT 253 U/L (15-39); BLOOD UREA NITROGEN 5 mg/dL (7-21); GFR AFRICAN-AMERICAN > 60; GFR NON-AFRICAN AMERICAN > 60
--- NOTE | 2017-04-03 10:12 | CP.PCM.PN ---
Subjective - Date & Time of Evaluation Date of Evaluation: 04/03/17 Time of Evaluation: 07:20 - Subjective Subjective: Herb Gates D.O. 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 Patient was seen and examined at bedside. Patient states that she was able to get a good night sleep last night with the help of the morphine which did alleviate her pain. Patient however is somewhat upset about her health situation at this time, states that she feels frustrated that her children have to see her like this and that she is afraid of dying. Patient also states that she is getting somewhat tired of being in the hospital and that she wishes she could just be home with her family. Patient otherwise denies any complaints other than also hating to have her blood sugars checked. Objective - Vital Signs/Intake and Output Vital Signs (last 24 hours): Temp Pulse Resp BP Pulse Ox 100.0 F H 113 H 20 167/62 H 100 04/03/17 07:00 04/03/17 07:00 04/03/17 07:00 04/03/17 07:00 04/02/17 16:07 Intake and Output: 04/03/17 04/03/17 06:59 18:59 Intake Total 600 1680 Balance 600 1680 - Medications Medications: Current Medications Acetaminophen (Tylenol 325mg Tab) 650 mg PO Q4H PRN PRN Reason: Pain, severe (8-10) Last Admin: 04/02/17 15:52 Dose: 650 mg Albuterol/Ipratropium (Duoneb 3 Mg/0.5 Mg (3 Ml) Ud) 3 ml IH [id number] ANABELLA Last Admin: 04/03/17 07:30 Dose: 3 ml Albuterol/Ipratropium (Duoneb 3 Mg/0.5 Mg (3 Ml) Ud) 3 ml IH Q2H PRN PRN Reason: Shortness of Breath Benzocaine/Menthol (Cepacol Sore Throat) 1 reno MT Q2H PRN PRN Reason: Sore Throat Last Admin: 04/02/17 20:13 Dose: 1 reno Benzonatate (Tessalon Perles) 100 mg PO BID [facility] Last Admin: 04/03/17 09:16 Dose: 100 mg Budesonide (Pulmicort Respules) 0.5 mg IH DAILY [facility] Calcium/Vitamin D (Oscal-D 250 Mg-125 Units Tab) 2 tab PO DAILY [facility] Last Admin: 04/03/17 09:16 Dose: 2 tab Fentanyl (Duragesic) 1 patch TD Q72H [facility] Last Admin: 04/02/17 09:57 Dose: Not Given Vancomycin HCl (Vancomycin 1gm) 1 gm in 250 mls @ 167 mls/hr IVPB Q12H ANABELLA PRN Reason: Protocol Last Admin: 04/03/17 05:12 Dose: 167 mls/hr Sodium Chloride (Sodium Chloride 0.9%) 1,000 mls @ 70 mls/hr IV .[id number] [facility] Last Admin: 04/02/17 10:07 Dose: 70 mls/hr Piperacillin Sod/Tazobactam Sod (Zosyn 3.375 In Ns 100ml) 100 mls @ 200 mls/hr IVPB Q6 ANABELLA PRN Reason: Protocol Stop: 04/06/17 18:01 Last Admin: 04/03/17 05:13 Dose: 200 mls/hr Doxycycline Hyclate 100 mg/ (Sodium Chloride) 100 mls @ 100 mls/hr IVPB Q12 ANABELLA PRN Reason: Protocol Last Admin: 04/03/17 09:17 Dose: 100 mls/hr Insulin Human Regular (Humulin R High) 0 units SC ACHS ANABELLA PRN Reason: Protocol Last Admin: 04/03/17 08:12 Dose: Not Given Lorazepam (Ativan) 0.25 mg PO TID [facility] PRN Reason: Protocol Last Admin: 04/03/17 09:16 Dose: 0.25 mg Morphine Sulfate (Morphine) 2 mg IVP Q4H PRN PRN Reason: Pain, severe (8-10) Last Admin: 04/02/17 23:42 Dose: 2 mg Non-Formulary Medication (Potassium Gluconate [Potassium]) 40 meq PO DAILY [facility] Last Admin: 04/03/17 09:17 Dose: Not Given Oxycodone HCl (Oxycodone Immediate Release Tab) 5 mg PO Q6H PRN PRN Reason: Pain, moderate (4-7) Last Admin: 04/02/17 20:13 Dose: 5 mg - Labs Labs: 04/03/17 08:30 04/03/17 08:30 PT 13.0 Seconds (9.9-11.8) H 03/30/17 13:40 INR 1.20 (0.93-1.08) H 03/30/17 13:40 APTT 28.2 Seconds (23.7-30.8) 03/30/17 13:40 - Constitutional Appears: well nourished, frustrated and upset today, somewhat tearful - Head Exam Head Exam: ATRAUMATIC, NORMOCEPHALIC - Eye Exam Eye Exam: EOMI, Normal appearance, PERRL. absent: Scleral icterus - ENT Exam ENT Exam: Mucous Membranes Moist, no pharyngeal erythema or exudate, no thrush - Neck Exam Additional comments: soft, supple - Respiratory Exam Respiratory Exam: Clear to Auscultation Bilateral. absent: Rales, Rhonchi, Wheezes - Cardiovascular Exam Cardiovascular Exam: REGULAR RHYTHM, +S1, +S2 - GI/Abdominal Exam GI & Abdominal Exam: Normal Bowel Sounds, Soft. absent: Distended, Firm, Guarding, Rigid, Tenderness - Exam Additional comments: unchanged right breast with dressing in place c/d/i, mildly tender - Extremities Exam Extremities exam: Positive for: pedal pulses present. Negative for: calf tenderness, pedal edema - Back Exam Back exam: absent: CVA tenderness (L), CVA tenderness (R) - Neurological Exam Neurological exam: Awake, Alert, Oriented x4 - Skin Skin Exam: Dry, Warm Assessment and Plan - Assessment and Plan (Free Text) Assessment: 71 year old female with a PMH of stage 4 breast CA with metastases to bone and colon who [place] [facility] [place] with complaints of worsened pain on right breast mass with associated drainage and fever. Plan: 1. Right breast bacterial superinfection of known right stage IV ER/AL+ HER2- Breast CA with associated pain disorder ID, Hem/Onc, and surgery followings, recs appreciated WCx R breast growing G+ Coag negative staph Continues on vancomycin/doxycyline/zosyn day 3 On fentanyl patch, oxycodone 5 and now morphine, will trial giving 2 tabs of oxycodone and seeing if this improves her pain throughout the day vs breakthrough with just morphine Refer to below for extended discussion 2. Recurrent bronchitis - improved Pulmonology following, recs are appreciated Procal and influenza were negative Continue q6h and q2h PRN nebs but changed pulmicort to QD from Q12 to monitor if her cough may be due to this Cont benzonate and cepacol PRN 3. Hyperglycemia No noted hx of DM continues to have elevated fingersticks Pending HgbA1C, plan to transition to oral hypoglycemics per her request, see below Continue RISS high 4. Transaminitis Ordered abd US to evaluation AST and Alk phos, no ALT elevation, possible metastases in liver Hepatitis panel was negative 5. Pancytopenia Likely 2/2 breast CA Hem/Onc following No active bleeding Hemodynamically stable Continue to monitor 6. Hypovitaminosis D Continue supplementation 7. Hx arthritis Continue on pain regimen as above 8. Pseudohypocalcemia Velvet Ca is 8.88 from pseudohypocalcemia 9. Hypokalemia - repleted GI/DVT ppx: protonix/SCDs I spent more than 35 minutes with the patient at bedside and we had an extended discussion about her disease process, her progress, he current issues, her frustration with her health, how she is thinking that she does not want to do chemo again given negative experiences in the past with infusions and symptoms, how she does NOT have a POLST, living will or other such document. I counseled her extensively as she was somewhat distraught and at times about to break into tears. Patient amenable to a discussion with palliative care. Patient also expressed other frustrations with things such as the diet (which will be changing to regular per her request), blood draws (which we will minimize), and fingersticks (which we discussed about at length as well, patient amenable to continuing for now with plan to switch to oral mediation and discontinuing fingersticks in the near future). We discussed getting a psychiatrist on board and patient states she will think about it. Patient was seen and examined and case was discussed at length with attending physician.
[2017-04-03] MEDS ORDERED: oxyCODONE 5 mg Immediate Release Tab PO STA (13:15)
[2017-04-03] MEDS: oxyCODONE 5 mg Immediate Release Tab PO PRN (13:24)
[2017-04-03] MEDS: Potassium Chloride 20 mEq ER Tab PO SCH ×2 (15:39→21:02)
[2017-04-03] MEDS: Insulin Human NPH 1 UNITS/0.01 ML SC SCH (18:22)
--- NOTE | 2017-04-03 18:31 | CP.PCM.PN ---
Subjective - Date & Time of Evaluation Date of Evaluation: 04/03/17 Time of Evaluation: 12:10 - Subjective Subjective: Comfortable, breathing better, still feels weak but less. No fevers overnight, although had one episode of 100 F temperature. Objective - Vital Signs/Intake and Output Vital Signs (last 24 hours): Temp Pulse Resp BP Pulse Ox 100.0 F H 113 H 20 167/62 H 100 04/03/17 07:00 04/03/17 07:00 04/03/17 07:00 04/03/17 07:00 04/02/17 16:07 Intake and Output: 04/03/17 04/03/17 06:59 18:59 Intake Total 600 1680 Balance 600 1680 - Medications Medications: Current Medications Acetaminophen (Tylenol 325mg Tab) 650 mg PO Q4H PRN PRN Reason: Pain, severe (8-10) Last Admin: 04/02/17 15:52 Dose: 650 mg Albuterol/Ipratropium (Duoneb 3 Mg/0.5 Mg (3 Ml) Ud) 3 ml IH [id number] [facility] Last Admin: 04/03/17 07:30 Dose: 3 ml Albuterol/Ipratropium (Duoneb 3 Mg/0.5 Mg (3 Ml) Ud) 3 ml IH Q2H PRN PRN Reason: Shortness of Breath Benzocaine/Menthol (Cepacol Sore Throat) 1 reno MT Q2H PRN PRN Reason: Sore Throat Last Admin: 04/02/17 20:13 Dose: 1 reno Benzonatate (Tessalon Perles) 100 mg PO BID [facility] Last Admin: 04/03/17 09:16 Dose: 100 mg Budesonide (Pulmicort Respules) 0.5 mg IH DAILY [facility] Calcium/Vitamin D (Oscal-D 250 Mg-125 Units Tab) 2 tab PO DAILY [facility] Last Admin: 04/03/17 09:16 Dose: 2 tab Fentanyl (Duragesic) 1 patch TD Q72H [facility] Last Admin: 04/02/17 09:57 Dose: Not Given Vancomycin HCl (Vancomycin 1gm) 1 gm in 250 mls @ 167 mls/hr IVPB Q12H ANABELLA PRN Reason: Protocol Last Admin: 04/03/17 05:12 Dose: 167 mls/hr Sodium Chloride (Sodium Chloride 0.9%) 1,000 mls @ 70 mls/hr IV .[id number] [facility] Last Admin: 04/02/17 10:07 Dose: 70 mls/hr Piperacillin Sod/Tazobactam Sod (Zosyn 3.375 In Ns 100ml) 100 mls @ 200 mls/hr IVPB Q6 ANABELLA PRN Reason: Protocol Stop: 04/06/17 18:01 Last Admin: 04/03/17 05:13 Dose: 200 mls/hr Doxycycline Hyclate 100 mg/ (Sodium Chloride) 100 mls @ 100 mls/hr IVPB Q12 ANABELLA PRN Reason: Protocol Last Admin: 04/03/17 09:17 Dose: 100 mls/hr Insulin Human Regular (Humulin R High) 0 units SC ACHS ANABELLA PRN Reason: Protocol Last Admin: 04/03/17 08:12 Dose: Not Given Lorazepam (Ativan) 0.25 mg PO TID ANABELLA PRN Reason: Protocol Last Admin: 04/03/17 09:16 Dose: 0.25 mg Morphine Sulfate (Morphine) 2 mg IVP Q4H PRN PRN Reason: Pain, severe (8-10) Last Admin: 04/02/17 23:42 Dose: 2 mg Non-Formulary Medication (Potassium Gluconate [Potassium]) 40 meq PO DAILY [facility] Last Admin: 04/03/17 09:17 Dose: Not Given Oxycodone HCl (Oxycodone Immediate Release Tab) 5 mg PO Q6H PRN PRN Reason: Pain, moderate (4-7) Last Admin: 04/02/17 20:13 Dose: 5 mg - Labs Labs: 04/03/17 08:30 04/03/17 08:30 PT 13.0 Seconds (9.9-11.8) H 03/30/17 13:40 INR 1.20 (0.93-1.08) H 03/30/17 13:40 APTT 28.2 Seconds (23.7-30.8) 03/30/17 13:40 - Constitutional Appears: Non-toxic, No Acute Distress - Head Exam Head Exam: NORMAL INSPECTION - ENT Exam ENT Exam: Mucous Membranes Moist - Neck Exam Neck Exam: absent: Lymphadenopathy, Meningismus - Respiratory Exam Respiratory Exam: Decreased Breath Sounds - Cardiovascular Exam Cardiovascular Exam: +S1, +S2 - GI/Abdominal Exam GI & Abdominal Exam: Soft. absent: Tenderness Assessment and Plan - Assessment and Plan (Free Text) Plan: Assessment Sepsis due to left sided healthcare-associated pneumonia and probable superinfection of the breast cancer area Breast cancer obesity with BMI 30 Plan continue Vancomycin, Zosyn and Doxycycline (day 4) to complete a 4-7 day course will continue to monitor clinically
[2017-04-04] MEDS: Piperacillin/Tazobact 3.375 gm 100 ML IVPB SCH ×3 (00:01→12:51)
--- NOTE | 2017-04-04 00:58 | PN ---
DATE: 04/03/2017 SUBJECTIVE: The patient is seen and examined with the biomedical equipment technician at bedside today in room 576, bed 2. The patient is out of bed to chair. The patient is alert, awake, responsive. The patient's vital signs and diagnostic data was reviewed. The patient was examined. IMPRESSION: 1. Sepsis secondary to left-sided healthcare-associated pneumonia and left breast carcinoma superinfection. 2. Uncontrolled diabetes mellitus with hyperglycemia. 3. Transaminitis. 4. Obesity with elevated body mass index of 30. 5. Tachycardia. 6. Fever. 7. Hypertension. 8. Leukopenia. 9. Normocytic anemia. 10. Lactic acidosis. 11. Hypokalemia. 12. Hyperglycemia. 13. Protein malnutrition. 14. Ketonuria. 15. Right breast gram-positive cocci and coagulase-negative Staphylococcus aureus superinfection and cellulitis. 16. Small bilateral pleural effusion. 17. Bilateral pulmonary nodules. 18. Right upper lobe airspace disease, right upper lobe subsegmental atelectasis, right lower lobe atelectasis, right middle lobe atelectasis, and left upper lobe interstitial airspace disease with air bronchogram and left lower lobe atelectasis. 19. Multiple sclerotic lesions of the spine, rib, sternum, and scapula. 20. Right breast mass with cystic and solid component and adjacent inflammation and extensive skin thickening of the right breast and multiple nodular masses. 21. Cardiomegaly. 22. Atrophic pancreas. 23. Cholecystectomy. 24. Hepatic steatosis. 25. Right breast mass with adjacent skin thickening and multiple nodules with diffuse bony metastatic disease and multiple pulmonary nodule consistent with metastasis and right hilar adenopathy and left upper lobe opacity versus infection versus focal lymphangitic carcinomatosis. 26. Sinus tachycardia. 27. Age indeterminate inferior infarct. 28. Left ventricular hypertrophy. 29. Right breast superinfection and stage IV ER/UT positive, HER2 negative breast carcinoma. 30. Hyperglycemia. 31. Pancytopenia. 32. Hypovitaminosis D. 33. Hypokalemia. PLAN: At this time, the patient has been ordered repeat labs. The patient's potassium will be supplemented. The patient's glycemic control will be optimized. The patient's current medications Ativan 0.25 p.o. t.i.d., Cepacol lozenges q. 2 hours p.r.n., Vibramycin 100 mg IV q. 12 hours, DuoNeb nebulizer every 6 hours and q. 2 hours p.r.n., fentanyl patch 25 mcg q. 72 hours. The patient is on high dose insulin sliding scale coverage. The patient has been given potassium 20 mEq to total of 40 mEq q. 6 hours x2 doses. Lopressor started at 25 mg twice a day for tachycardia and hypertension. Morphine 2 mg IV q. 4 hours p.r.n., Os-Rafael 2 tablets daily, oxycodone 5 mg immediate release q. 6 hours p.r.n. The patient is on K-Dur 40 mEq daily, Pulmicort nebulizer 0.5 mg twice a day, IV fluid normal saline at 70 mL an hour, Tessalon Perles 100 mg three times a day, Tylenol 650 q. 4 hours p.r.n., vancomycin 1 g IV q. 12 hours, Zosyn 3.375 g IV q. 6 hours. Ultrasound of the abdomen has been ordered for transaminitis. The patient has been on SCDs. The patient has been requesting evaluation for DNR/DNI living will advance directive. The patient's case has been referred to for above. The patient will be started on some basal insulin. For optimization of glycemic control. The patient's further management will depend upon the patient's clinical condition, hemodynamic status, as per the patient's response therapeutic intervention, as per the patient's diagnostic test results, and as per recommendations by all the physician involved in the care of the patient. At present, the patient is to be continued on above therapeutic intervention. In view of the patient's present condition, the patient's prognosis appears to be guarded to poor. The patient has been advised to discuss living will advance directive with palliative care nurse. The patient will be ordered repeat labs for the morning. Trev Hawk MD
[2017-04-04] MEDS: Albuterol-Ipratrop 3 mg / 0.5 (3 ml) UD IH SCH ×3 (02:11→13:20)
[2017-04-04] MEDS: Vancomycin 1gm in NS 250ml 1 GM/250 ML BAG IVPB SCH (04:46)
[2017-04-04] MEDS: Sodium Chloride 0.9% 1,000 ML IV SCH (04:58)
[2017-04-04] MEDS: Benzocaine/Menthol (Cepacol) Lozenge MT PRN (05:06)
[2017-04-04 07:17] LABS: BASO # 0.03 K/mm3 (0.0-2.0); BASO % 0.5 % (0.0-3.0); EOS # 0.2 (0.0-0.7); EOS % 2.7 % (1.5-5.0); GRAN # 3.27 (1.4-6.5); GRAN % 58.4 % (50.0-68.0); HEMOGLOBIN 8.3 g/dL (12.0-16.0); LYMPH # 1.3 (1.2-3.4); LYMPH % 22.9 % (22.0-35.0); MEAN CELL VOLUME 95.6 fl (80.0-105.0); MEAN CORPUSCULAR HEMOGLOBIN 30.7 pg (25.0-35.0); MEAN CORPUSCULAR HGB CONC 32.2 g/dl (31.0-37.0); MEAN PLATELET VOLUME 8.7 fl (7.0-11.0); MONO # 0.9 (0.1-0.6); MONO % 15.5 % (1.0-6.0); PLATELET COUNT 88 10^3/uL (120.0-450.0); RED CELL DISTRIBUTION WIDTH 18.5 % (11.5-14.5); WHITE BLOOD COUNT 5.6 10^3/ul (4.5-11.0)
[2017-04-04 07:22] LABS: ALB/GLOB RATIO 0.9 (1.1-1.8); ALBUMIN 2.7 g/dL (3.0-4.8); ALT/SGPT 33 U/L (7-56); AST/SGOT 199 U/L (15-39); BILIRUBIN,DIRECT 0.7 mg/dL (0.0-0.4); BLOOD UREA NITROGEN 5 mg/dL (7-21); GFR AFRICAN-AMERICAN > 60; GFR NON-AFRICAN AMERICAN > 60; MAGNESIUM 1.8 mg/dL (1.7-2.2)
[2017-04-04] MEDS: Budesonide 0.5 mg/2 ml Inhal Susp UD IH SCH ×2 (07:24→07:25)
[2017-04-04] MEDS ORDERED: Insulin Human NPH 1 UNITS/0.01 ML SC SCH (07:30)
[2017-04-04] MEDS: Insulin Reg-HIGH-Coverage SC SCH ×3 (08:37→17:15)
[2017-04-04] MEDS: Calcium-Vit D 250 mg-125 Units Tab UD PO SCH (10:18)
--- NOTE | 2017-04-04 10:40 | PN ---
DATE: 04/04/2017 PULMONARY PROGRESS NOTE SUBJECTIVE: The patient is lying in bed with no acute respiratory distress. She has no dyspnea. She has oxygen in place, but states that she does not really need it, asking if she can take it off. There is no cough any longer. She is feeling quite well. No distress is noted at this time. PHYSICAL EXAMINATION VITAL SIGNS: Her vital signs remain stable. She is afebrile this morning, blood pressure 138/74, heart rate 68, respiratory rate 18 and O2 sat 98% on a liter of oxygen. HEENT: Normocephalic, atraumatic. NECK: Supple. No lymphadenopathy. No bruit. No jugular venous distention. CARDIOVASCULAR: Regular rhythm, S1 and S2 without murmur, gallop or rub. LUNGS: Global decrease in breath sounds. No rales, rhonchi or wheezes noted. ABDOMEN: Soft, bowel sounds normoactive, protuberant abdomen. No mass, guarding, rebound or organomegaly. EXTREMITIES: Reveal no clubbing, cyanosis or edema. There is no Kari signs. SKIN: Shows no rash or excoriation. NEUROLOGIC: The lymph nodes are nonpalpable on the supraclavicular notch. They are negative as well in the axillary, inguinal and supraclavicular areas. LABORATORY DATA: Since my last evaluation, laboratories show a white count of 5, hemoglobin of 8.3, hematocrit 25 and platelet count 88,000. The last blood gas was 811 with pH of 7.44, PCO2 of 43 and PO2 of 84. Chemistries; the only abnormalities are prerenal azotemia, mild elevation of AST and alkaline phosphatase. No change from the last chest x-ray. CAT scan was done on 03/31/2017, which shows no changes from previous scans. There clearly is evidence of normal-appearing parenchyma and tracheobronchial tree and small bilateral effusions. There are scattered nodules as seen previously with no significant changes. These nodules remain patchy and are stable from the past. Minor atelectasis is still noted. There is significantly large exophytic right breast mass as noted in previous notes. CLINICAL IMPRESSION: 1. Exophytic breast mass. 2. Bilateral pleural effusion, small. 3. Lung metastasis in the form of pulmonary nodules. 4. Metastatic lung disease to colon, bone and lymph nodes as well. 5. Chronic obstructive pulmonary disease, which is stable at this time and requires no further medical treatment other than what she is already receiving. PLAN: Continue vigorous support, continue inhaled bronchodilators and corticosteroids. Oncologic evaluation needs to be considered, and as stated previously, discussion of palliative care is in order. There is no additional intervention on my part at this particular time, but we stand ready and able to continue to work this patient up if it is so desired, otherwise we will continue with palliative care only. The patient can be treated for symptoms should they develop. Thank you for the opportunity to follow this jhonatan patient. Kapil Prescott MD
--- NOTE | 2017-04-04 10:45 | US ---
HISTORY: Worsening transaminitis she COMPARISON: None. TECHNIQUE: Sonographic evaluation of the abdomen. FINDINGS: LIVER: Measures 16.7 cm. Hepatopedal blood flow. Fatty infiltration manifest ultrasonographically as increased echogenicity of the liver parenchyma. No mass. No intrahepatic bile duct dilatation. GALLBLADDER: Status post cholecystectomy. No abnormality is seen in the gallbladder fossa. COMMON BILE DUCT: Measures 3.7 mm. No stones. No dilatation. PANCREAS: Obscured by overlying bowel gas. Non diagnostic assessment of the pancreas RIGHT KIDNEY: Measures 6.6 x 9.9cm. Normal echogenicity. No calculus, mass, or hydronephrosis. LEFT KIDNEY: Measures 5.2 x 10.8cm. Normal echogenicity. No calculus, mass, or hydronephrosis. SPLEEN: Normal in size and contour. No mass. AORTA: Obscured by overlying bowel gas. Non diagnostic assessment of abdominal aorta. IVC: Obscured by overlying bowel gas. Non diagnostic assessment of inferior vena cava. OTHER FINDINGS: None. IMPRESSION: Hepatic steatosis. No focal masses. No intrahepatic bile duct dilatation or perihepatic ascites. Limitations of the current examination: Nondiagnostic assessment of the pancreas, aorta and IVC.
[2017-04-04] MEDS: POTASSIUM GLUCONATE PO SCH (12:57)
[2017-04-04] MEDS: oxyCODONE 10 mg Immediate Release Tab PO PRN ×2 (13:04)
[2017-04-04 13:21] LABS: HEMOGLOBIN 8.8 g/dL (12.0-16.0)
[2017-04-04 13:37] LABS: % IRON SATURATION 29 % (20-55); IRON 70 ug/dL (45-180); TOTAL IRON BINDING CAPACITY 238 ug/dL (265-497)
--- NOTE | 2017-04-04 14:22 | CP.PCM.CON ---
History of Present Illness - History of Present Illness History of Present Illness: Palliative consult requested by Dr Ananth Kelley Reason: Ga[place] of care/advance care planning 71 year old female with a history of of ER+ LA+ , HER2 -metastatic breast cancer who presented with infected mass of right breast. She was febrile upon arrival to ED. She also complained of fatigue,decreased appetite and generalized body aches. She was admitted for further evaluation of right breast mass PMHx: breast cancer metastatic to bone, chest wall, s/p multiple hormonal therapy treatments, s/p radiation thearpy,back pain kyphoplasty. Family History: Non contributory. Social History: Former smoker, no alcohol or drug use. Live independently. Her family is supportive. Advance Care Planing: She does not have an Advanced Directive. Review of Systems:As per HPI, all other systems reviewed and are negative. Past Patient History - Infectious Disease Hx of Infectious Diseases: None - Tetanus Immunizations Tetanus Immunization: Unknown - Past Social History Smoking Status: Former Smoker - CARDIAC Hx Cardiac Disorders: No Hx Angina: No Hx Cardia Arrhythmia: No Hx Circulatory Problems: No Hx Congestive Heart Failure: No Hx Heart Murmur: No Hx Heart Transplant: No Hx Hypertension: No Hx Internal Defibrillator: No Hx Mitral Valve Prolapse: No Hx Pacemaker: No Hx Peripheral Edema: No Hx Peripheral Vascular Disease: No - PULMONARY Hx Respiratory Disorders: Yes (SMOKED CIGARETTES QUIT 1981) Hx Asthma: No Hx Bronchitis: No Hx Chronic Obstructive Pulmonary Disease (COPD): No Hx Emphysema: No Hx Pneumonia: No Hx Respiratory Aspiration: No Hx Respiratory Tract Infection: No Hx Sleep Apnea: No Hx Tuberculosis: No - NEUROLOGICAL Hx Neurological Disorder: No Hx Alzheimer's Disease: No HX Cerebrovascular Accident: No Hx Dementia: No Hx Dizziness: No Hx Meningitis: No Hx Migraine: No Hx Parkinson's Disease: No Hx Seizures: No Hx Transient Ischemic Attacks (TIA): No - HEENT Hx HEENT Problems: Yes Hx Blind: No Hx Cataracts: Yes (h/o cataract surgery) Hx Deafness: No Hx Difficulty Chewing: No Hx Epistaxis: No Hx Glaucoma: No Hx Macular Degeneration: No - RENAL Hx Chronic Kidney Disease: No Hx Dialysis: No Hx Kidney Stones: No Hx Neurogenic Bladder: No Hx Pyelonephritis: No Hx Renal (Kidney) Cancer: No Hx Renal Failure: No - ENDOCRINE/METABOLIC Hx Endocrine Disorders: No Hx Adrenal Cancer: No Hx Diabetes Insipidus: No Hx Diabetes Mellitus Type 1: No Hx Diabetes Mellitus Type 2: No Hx Hyperthyroidism: No Hx Hypothyroidism: No Hx Systemic Lupus Erythematosus: No - HEMATOLOGICAL/ONCOLOGICAL Hx Blood Disorders: Yes Hx AIDS: No Hx Anemia: No Hx Cancer: Yes (breast cancer WITH METS,COLON AND BONE) Hx Chemotherapy: Yes (PILLS STARTED FEBRUARY 2017) Hx Cirrhosis: No Hx Hemophilia: No Hx Hepatitis A: No Hx Hepatitis B: No Hx Hepatitis C: No Hx Metastesis: No Hx Shingles: No Hx Sickle Cell Disease: No Hx Unexplained Bleeding: No Other/Comment: RADIATION - INTEGUMENTARY Hx Dermatological Problems: Yes Hx Basil Cell: No Hx Eczema: No Hx Melanoma: No Hx Psoriasis: No Hx Squamous Cell: No Other/Comment: 03-30-17 CODE SEPSIS-RIGHT BREAST INFECTION,MID LOWER BACK DIMPLING OF SKIN,DRY SCABBED AREA.LEFT 0.3 CM WOUND TO LABIA MAJORA.BILATERAL GROIN AREA DARKENED SKIN DISCOLORATION - MUSCULOSKELETAL/RHEUMATOLOGICAL Hx Arthritis: Yes - GASTROINTESTINAL Hx Gastrointestinal Disorders: Yes (CHOLECYSTECTOMY,CONSTIPATION) - GENITOURINARY/GYNECOLOGICAL Hx Genitourinary Disorders: No - PSYCHIATRIC Hx Psychophysiologic Disorder: Yes Hx Anxiety: Yes Hx Bipolar Disorder: No Hx Depression: No Hx Emotional Abuse: No Hx Hallucinations: No Hx Panic Symptoms: No Hx Post Traumatic Stress Disorder: No Hx Psychosis: No Hx Physical Abuse: No Hx Schizophrenia: No Hx Sexual Abuse: No Hx Substance Use: No - SURGICAL HISTORY Hx Surgeries: Yes Hx Amputation: No Hx Appendectomy: No Hx Cardiac Catheterization: No Hx Cholecystectomy: Yes Hx Coronary Stent: No Hx Gastric Bypass Surgery: No Hx Hysterectomy: Yes Hx Joint Replacement: No Hx Kidney Transplant: No Hx Liver Transplant: No Hx Mastectomy: No Hx Musculoskeletal Surgery: No Hx Open Heart Surgery: No Hx Orthopedic Surgery: No Hx Splenectomy: No Hx Valve Replacement: No - ANESTHESIA Hx Anesthesia: Yes Hx Anesthesia Reactions: No Meds Allergies/Adverse Reactions: Allergies Allergy/AdvReac Type Severity Reaction Status Date / Time No Known Allergies Allergy Verified 03/30/17 18:50 - Medications Medications: Current Medications Acetaminophen (Tylenol 325mg Tab) 650 mg PO Q4H PRN PRN Reason: Pain, moderate (4-7) Albuterol/Ipratropium (Duoneb 3 Mg/0.5 Mg (3 Ml) Ud) 3 ml IH [id number] [facility] Last Admin: 04/04/17 13:20 Dose: 3 ml Albuterol/Ipratropium (Duoneb 3 Mg/0.5 Mg (3 Ml) Ud) 3 ml IH Q2H PRN PRN Reason: Shortness of Breath Benzocaine/Menthol (Cepacol Sore Throat) 1 reno MT Q2H PRN PRN Reason: Sore Throat Last Admin: 04/04/17 05:06 Dose: 1 reno Benzonatate (Tessalon Perles) 100 mg PO BID [facility] Last Admin: 04/04/17 10:18 Dose: 100 mg Budesonide (Pulmicort Respules) 0.5 mg IH DAILY [facility] Last Admin: 04/04/17 07:25 Dose: 0.5 mg Calcium/Vitamin D (Oscal-D 250 Mg-125 Units Tab) 2 tab PO DAILY [facility] Last Admin: 04/04/17 10:18 Dose: 2 tab Fentanyl (Duragesic) 1 patch TD Q72H [facility] Last Admin: 04/02/17 09:57 Dose: Not Given Vancomycin HCl (Vancomycin 1gm) 1 gm in 250 mls @ 167 mls/hr IVPB Q12H [facility] PRN Reason: Protocol Last Admin: 04/04/17 04:46 Dose: 167 mls/hr Piperacillin Sod/Tazobactam Sod (Zosyn 3.375 In Ns 100ml) 100 mls @ 200 mls/hr IVPB Q6 [facility] PRN Reason: Protocol Stop: 04/06/17 18:01 Last Admin: 04/04/17 12:51 Dose: 200 mls/hr Doxycycline Hyclate 100 mg/ (Sodium Chloride) 100 mls @ 100 mls/hr IVPB Q12 [facility] PRN Reason: Protocol Last Admin: 04/04/17 10:19 Dose: 100 mls/hr Insulin Human NPH (Humulin N) 10 units SC ACB [facility] Last Admin: 04/04/17 08:36 Dose: 10 units Insulin Human NPH (Humulin N) 10 units SC DAILY@1745 [facility] Last Admin: 04/03/17 18:22 Dose: Not Given Insulin Human Regular (Humulin R High) 0 units SC ACHS [facility] PRN Reason: Protocol Last Admin: 04/04/17 12:51 Dose: 4 units Lorazepam (Ativan) 0.25 mg PO TID [facility] PRN Reason: Protocol Last Admin: 04/04/17 10:18 Dose: 0.25 mg Metoprolol Tartrate (Lopressor) 25 mg PO BRKDIN [facility] Last Admin: 04/04/17 08:44 Dose: 25 mg Non-Formulary Medication (Potassium Gluconate [Potassium]) 40 meq PO DAILY [facility] Last Admin: 04/04/17 12:57 Dose: Not Given Oxycodone HCl (Oxycodone Immediate Release Tab) 10 mg PO Q6H PRN PRN Reason: Pain, severe (8-10) Last Admin: 04/04/17 13:04 Dose: 10 mg Physical Exam - Constitutional Appears: No Acute Distress, Chronically Ill - Head Exam Head Exam: NORMAL INSPECTION - Eye Exam Eye Exam: Normal appearance, PERRL - ENT Exam ENT Exam: Mucous Membranes Moist, Normal Oropharynx - Neck Exam Neck exam: Positive for: Normal Inspection - Respiratory Exam Respiratory Exam: Clear to Auscultation Bilateral, NORMAL BREATHING PATTERN - Cardiovascular Exam Cardiovascular Exam: REGULAR RHYTHM, +S1, +S2 - GI/Abdominal Exam GI & Abdominal Exam: Normal Bowel Sounds, Soft - Extremities Exam Extremities exam: Positive for: normal inspection, pedal pulses present - Back Exam Back exam: NORMAL INSPECTION, vertebral tenderness - Neurological Exam Neurological exam: Alert, Oriented x3 - Skin Skin Exam: Dry, Pallor Additional comments: right chest fungating mass - Additional Findings Additional findings: Palliative performances scale rating 50 % Results - Vital Signs Recent Vital Signs: Last Vital Signs Temp 99.3 F 04/04/17 07:30 Pulse 102 H 04/04/17 07:30 Resp 20 04/04/17 07:30 BP 146/64 04/04/17 07:30 Pulse Ox 97 04/04/17 07:30 - Labs Result Diagrams: 04/04/17 13:15 04/04/17 06:40 Labs: Laboratory Results - last 24 hr 04/03/17 04/03/17 04/03/17 07:54 08:30 11:24 WBC RBC Hgb Hct MCV MCH MCHC RDW Plt Count MPV Gran % Lymph % (Auto) [place] % (Auto) Eos % (Auto) Baso % (Auto) Gran # Lymph # [place] # Eos # Baso # Sodium Potassium Chloride Carbon Dioxide Anion Gap BUN Creatinine Est GFR ( Amer) Est GFR (Non-Af Amer) POC Glucose (mg/dL) 146 H 227 H Random Glucose Hemoglobin A1c 8.8 H Calcium Magnesium Iron TIBC % Saturation Total Bilirubin Direct Bilirubin AST ALT Alkaline Phosphatase Total Protein Albumin Globulin Albumin/Globulin Ratio Ur L.pneumophila Ag 04/03/17 04/03/17 04/04/17 16:32 19:30 06:40 WBC 5.6 RBC 2.70 L Hgb 8.3 L Hct 25.8 L MCV 95.6 MCH 30.7 MCHC 32.2 RDW 18.5 H Plt Count 88 L MPV 8.7 Gran % 58.4 Lymph % (Auto) 22.9 [place] % (Auto) 15.5 H Eos % (Auto) 2.7 Baso % (Auto) 0.5 Gran # 3.27 Lymph # 1.3 [place] # 0.9 H Eos # 0.2 Baso # 0.03 Sodium Potassium Chloride Carbon Dioxide Anion Gap BUN Creatinine Est GFR ( Amer) Est GFR (Non-Af Amer) POC Glucose (mg/dL) 210 H Random Glucose Hemoglobin A1c Calcium Magnesium Iron TIBC % Saturation Total Bilirubin Direct Bilirubin AST ALT Alkaline Phosphatase Total Protein Albumin Globulin Albumin/Globulin Ratio Ur L.pneumophila Ag Negative 04/04/17 04/04/17 04/04/17 06:40 13:15 13:15 WBC RBC Hgb 8.8 L Hct 27.2 L MCV MCH MCHC RDW Plt Count MPV Gran % Lymph % (Auto) [place] % (Auto) Eos % (Auto) Baso % (Auto) Gran # Lymph # [place] # Eos # Baso # Sodium 140 Potassium 3.9 Chloride 103 Carbon Dioxide 26 Anion Gap 15 BUN 5 L Creatinine 0.5 Est GFR ( Amer) > 60 Est GFR (Non-Af Amer) > 60 POC Glucose (mg/dL) Random Glucose 139 H Hemoglobin A1c Calcium 8.0 L Magnesium 1.8 Iron 70 TIBC 238 L % Saturation 29 Total Bilirubin 0.7 Direct Bilirubin 0.7 H AST 199 H ALT 33 Alkaline Phosphatase 362 H Total Protein 5.5 L Albumin 2.7 L Globulin 2.9 Albumin/Globulin Ratio 0.9 L Ur L.pneumophila Ag Assessment & Plan - Assessment and Plan (Free Text) Assessment: 71 year old female with history of metastatic breast cancer who was admitted for sepsis and surgical evaluation of right fungating breast mass. The patient is alert/oriented and of pleasant demeanor. She complaining s of generalized body aches. Her daughter Lexi is at bedside. Discussion ensued about future goals of care. The patient is very concerned about dying, prefers not to at home, does not want to be a burden for her children. She does not like to discuss the future except to say that she wants to be kept comfortable and pain free. She is undecided as to whether she wants to proceed with oral chemotherapy, which she offered by her oncologist, Dr Henderson. I explained that she could receive pain management while taking chemotherapy. Option for comfort care/hospice offered as well. Patient would like some time to consider these options. I explained that we could talk more about this plans in the near future. We also spoke about resuscitation wishes and advance care planning. The patient does not want CPR/intubation. A POLST was completed. Her daughter Lexi is her health care surrogate. A copy is placed in the chart Time spent in goals of care discussion and advance care planning, 45 minutes Plan: Advance Care Planning POLST: DNR/DNI
--- NOTE | 2017-04-04 15:37 | CP.PCM.PN ---
Subjective - Date & Time of Evaluation Date of Evaluation: 04/04/17 Time of Evaluation: 12:45 - Subjective Subjective: Comfortable, breathing better, no fevers overnight. Objective - Vital Signs/Intake and Output Vital Signs (last 24 hours): Temp Pulse Resp BP Pulse Ox 99.3 F 102 H 20 146/64 97 04/04/17 07:30 04/04/17 07:30 04/04/17 07:30 04/04/17 07:30 04/04/17 07:30 Intake and Output: 04/04/17 04/04/17 06:59 18:59 Intake Total 2160 Balance 2160 - Medications Medications: Current Medications Acetaminophen (Tylenol 325mg Tab) 650 mg PO Q4H PRN PRN Reason: Pain, moderate (4-7) Albuterol/Ipratropium (Duoneb 3 Mg/0.5 Mg (3 Ml) Ud) 3 ml IH [id number] [facility] Last Admin: 04/04/17 07:23 Dose: 3 ml Albuterol/Ipratropium (Duoneb 3 Mg/0.5 Mg (3 Ml) Ud) 3 ml IH Q2H PRN PRN Reason: Shortness of Breath Benzocaine/Menthol (Cepacol Sore Throat) 1 reno MT Q2H PRN PRN Reason: Sore Throat Last Admin: 04/04/17 05:06 Dose: 1 reno Benzonatate (Tessalon Perles) 100 mg PO BID [facility] Last Admin: 04/04/17 10:18 Dose: 100 mg Budesonide (Pulmicort Respules) 0.5 mg IH DAILY [facility] Last Admin: 04/04/17 07:24 Dose: 0.5 mg Calcium/Vitamin D (Oscal-D 250 Mg-125 Units Tab) 2 tab PO DAILY [facility] Last Admin: 04/04/17 10:18 Dose: 2 tab Fentanyl (Duragesic) 1 patch TD Q72H [facility] Last Admin: 04/02/17 09:57 Dose: Not Given Vancomycin HCl (Vancomycin 1gm) 1 gm in 250 mls @ 167 mls/hr IVPB Q12H [facility] PRN Reason: Protocol Last Admin: 04/04/17 04:46 Dose: 167 mls/hr Sodium Chloride (Sodium Chloride 0.9%) 1,000 mls @ 70 mls/hr IV .[id number] [facility] Last Admin: 04/04/17 04:58 Dose: 70 mls/hr Piperacillin Sod/Tazobactam Sod (Zosyn 3.375 In Ns 100ml) 100 mls @ 200 mls/hr IVPB Q6 [facility] PRN Reason: Protocol Stop: 04/06/17 18:01 Last Admin: 04/04/17 06:14 Dose: 200 mls/hr Doxycycline Hyclate 100 mg/ (Sodium Chloride) 100 mls @ 100 mls/hr IVPB Q12 [facility] PRN Reason: Protocol Last Admin: 04/04/17 10:19 Dose: 100 mls/hr Insulin Human NPH (Humulin N) 10 units SC ACB [facility] Last Admin: 04/04/17 08:36 Dose: 10 units Insulin Human NPH (Humulin N) 10 units SC DAILY@1745 [facility] Last Admin: 04/03/17 18:22 Dose: Not Given Insulin Human Regular (Humulin R High) 0 units SC ACHS [facility] PRN Reason: Protocol Last Admin: 04/04/17 08:37 Dose: 2 units Lorazepam (Ativan) 0.25 mg PO TID [facility] PRN Reason: Protocol Last Admin: 04/04/17 10:18 Dose: 0.25 mg Metoprolol Tartrate (Lopressor) 25 mg PO BRKDIN [facility] Last Admin: 04/04/17 08:44 Dose: 25 mg Non-Formulary Medication (Potassium Gluconate [Potassium]) 40 meq PO DAILY [facility] Last Admin: 04/03/17 09:17 Dose: Not Given Oxycodone HCl (Oxycodone Immediate Release Tab) 10 mg PO Q6H PRN PRN Reason: Pain, severe (8-10) Last Admin: 04/04/17 00:00 Dose: 10 mg - Labs Labs: 04/04/17 06:40 04/04/17 06:40 PT 13.0 Seconds (9.9-11.8) H 03/30/17 13:40 INR 1.20 (0.93-1.08) H 03/30/17 13:40 APTT 28.2 Seconds (23.7-30.8) 03/30/17 13:40 - Constitutional Appears: Non-toxic, No Acute Distress - Head Exam Head Exam: NORMAL INSPECTION - ENT Exam ENT Exam: Mucous Membranes Moist - Neck Exam Neck Exam: absent: Lymphadenopathy, Meningismus - Respiratory Exam Respiratory Exam: Decreased Breath Sounds - Cardiovascular Exam Cardiovascular Exam: +S1, +S2 - GI/Abdominal Exam GI & Abdominal Exam: Soft. absent: Tenderness Assessment and Plan - Assessment and Plan (Free Text) Plan: Assessment Sepsis due to left sided healthcare-associated pneumonia and probable superinfection of the breast cancer area, clinically improving Breast cancer obesity with BMI 30 Plan continue Vancomycin, Zosyn and Doxycycline (day 5) to complete a 4-7 day course will continue to monitor clinically
[2017-04-04 16:18] VITALS: BP 155/61; PULSE 108; TEMP 97.3; O2SAT 94
[2017-04-04] MEDS: Insulin Human NPH 1 UNITS/0.01 ML SC SCH (17:16)
--- NOTE | 2017-04-04 21:45 | CP.PCM.DIS ---
Provider - Provider Date of Admission: 03/30/17 14:30 Attending physician: Christian Stephens DO Consults: Heme: Beatriz/Ravinder Surg: Parsons ID: Sanna EOL Care: Paramonte Time Spent in preparation of Discharge (in minutes): 45 Hospital Course - Lab Results Lab Results: Micro Results 03/31/17 14:15 Breast - Right Gram Stain - Final 03/31/17 14:15 Breast - Right Wound Culture - Final Staphylococcus Lugdunensis 03/30/17 16:00 Urine,Clean Catch Urine Culture - Final No Growth (<1,000 CFU/ML) Most Recent Lab Values WBC 5.6 10^3/ul (4.5-11.0) 04/04/17 06:40 RBC 2.70 10^6/uL (3.5-6.1) L 04/04/17 06:40 Hgb 8.8 g/dL (12.0-16.0) L 04/04/17 13:15 Hct 27.2 % (36.0-48.0) L 04/04/17 13:15 MCV 95.6 fl (80.0-105.0) 04/04/17 06:40 MCH 30.7 pg (25.0-35.0) 04/04/17 06:40 MCHC 32.2 g/dl (31.0-37.0) 04/04/17 06:40 RDW 18.5 % (11.5-14.5) H 04/04/17 06:40 Plt Count 88 10^3/uL (120.0-450.0) L 04/04/17 06:40 Manual Plt Count 108 K/mm3 (120-450) L 04/04/17 13:30 MPV 8.7 fl (7.0-11.0) 04/04/17 06:40 Gran % 58.4 % (50.0-68.0) 04/04/17 06:40 Lymph % (Auto) 22.9 % (22.0-35.0) 04/04/17 06:40 [place] % (Auto) 15.5 % (1.0-6.0) H 04/04/17 06:40 Eos % (Auto) 2.7 % (1.5-5.0) 04/04/17 06:40 Baso % (Auto) 0.5 % (0.0-3.0) 04/04/17 06:40 Gran # 3.27 (1.4-6.5) 04/04/17 06:40 Lymph # 1.3 (1.2-3.4) 04/04/17 06:40 [place] # 0.9 (0.1-0.6) H 04/04/17 06:40 Eos # 0.2 (0.0-0.7) 04/04/17 06:40 Baso # 0.03 K/mm3 (0.0-2.0) 04/04/17 06:40 PT 13.0 Seconds (9.9-11.8) H 03/30/17 13:40 INR 1.20 (0.93-1.08) H 03/30/17 13:40 APTT 28.2 Seconds (23.7-30.8) 03/30/17 13:40 pO2 45 mm/Hg (30-55) 04/01/17 06:20 VBG pH 7.44 (7.32-7.43) H 04/01/17 06:20 VBG pCO2 43.0 (40-60) 04/01/17 06:20 VBG HCO3 29.2 mmol/l (21-28) H 04/01/17 06:20 VBG Total CO2 30.5 mmol.L (22-28) H 04/01/17 06:20 VBG O2 Sat (Calc) 87.4 % (40-65) H 04/01/17 06:20 VBG Base Excess 4.4 mmol/L (0.0-2.0) H 04/01/17 06:20 VBG Potassium 3.8 mmol/L (3.6-5.2) 04/01/17 06:20 Sodium 140.0 mmol/L (132-148) 04/01/17 06:20 Chloride 99.0 mmol/L (98-107) 04/01/17 06:20 Glucose 177 mg/dl (65-105) H 04/01/17 06:20 Lactate 4.4 mmol/L (0.7-2.1) H* 04/01/17 06:20 FiO2 21.0 % 04/01/17 06:20 Sodium 140 mmol/L (132-148) 04/04/17 06:40 Potassium 3.9 mmol/L (3.6-5.0) 04/04/17 06:40 Chloride 103 mmol/L (95-110) 04/04/17 06:40 Carbon Dioxide 26 mmol/L (21-33) 04/04/17 06:40 Anion Gap 15 (10-20) 04/04/17 06:40 BUN 5 mg/dL (7-21) L 04/04/17 06:40 Creatinine 0.5 mg/dL (0.5-1.4) 04/04/17 06:40 Est GFR ( Amer) > 60 04/04/17 06:40 Est GFR (Non-Af Amer) > 60 04/04/17 06:40 POC Glucose (mg/dL) 174 mg/dL (65-110) H 04/04/17 16:07 Random Glucose 139 mg/dL (70-110) H 04/04/17 06:40 Hemoglobin A1c 8.8 % (4.2-6.5) H 04/03/17 08:30 Calcium 8.0 mg/dL (8.4-10.5) L 04/04/17 06:40 Phosphorus 3.3 mg/dL (2.5-4.5) 03/30/17 13:40 Magnesium 1.8 mg/dL (1.7-2.2) 04/04/17 06:40 Iron 70 ug/dL (45-180) 04/04/17 13:15 TIBC 238 ug/dL (265-497) L 04/04/17 13:15 % Saturation 29 % (20-55) 04/04/17 13:15 Ferritin 686.0 ng/mL 04/04/17 13:15 Total Bilirubin 0.7 mg/dL (0.2-1.3) 04/04/17 06:40 Direct Bilirubin 0.7 mg/dL (0.0-0.4) H 04/04/17 06:40 AST 199 U/L (15-39) H 04/04/17 06:40 ALT 33 U/L (7-56) 04/04/17 06:40 Alkaline Phosphatase 362 U/L (38-133) H 04/04/17 06:40 Lactate Dehydrogenase 6711 U/L (333-699) H 03/30/17 13:40 Total Creatine Kinase 77 U/L (35-230) 03/30/17 13:40 Troponin I 0.07 ng/mL D 03/31/17 18:15 Total Protein 5.5 g/dL (5.8-8.3) L 04/04/17 06:40 Albumin 2.7 g/dL (3.0-4.8) L 04/04/17 06:40 Globulin 2.9 gm/dL 04/04/17 06:40 Albumin/Globulin Ratio 0.9 (1.1-1.8) L 04/04/17 06:40 Lipase 18 U/L (23-300) L 03/30/17 13:40 Procalcitonin 0.30 NG/ML (0.19-0.49) 04/01/17 08:00 Venous Blood Potassium 3.8 mmol/L (3.6-5.2) 04/01/17 06:20 Urine Color Yellow (YELLOW) 03/30/17 16:00 Urine Appearance Clear (CLEAR) 03/30/17 16:00 Urine pH 6.5 (4.7-8.0) 03/30/17 16:00 Ur Specific [place] 1.020 (1.005-1.035) 03/30/17 16:00 Urine Protein Negative mg/dL (<30 mg/dL) 03/30/17 16:00 Urine Glucose (UA) Negative mg/dL (NEGATIVE) 03/30/17 16:00 Urine Ketones 15 mg/dL (NEGATIVE) H 03/30/17 16:00 Urine Blood Negative (NEGATIVE) 03/30/17 16:00 Urine Nitrate Negative (NEGATIVE) 03/30/17 16:00 Urine Bilirubin Negative (NEGATIVE) 03/30/17 16:00 Urine Urobilinogen 0.2 E.U./dL (<1 E.U./dL) 03/30/17 16:00 Ur Leukocyte Esterase Negative Satya/uL (NEGATIVE) 03/30/17 16:00 Hepatitis A IgM Ab Negative (NEGATIVE) 03/31/17 07:30 Hep Bs Antigen Negative (NEGATIVE) 03/31/17 07:30 Hep B Core IgM Ab Negative (NEGATIVE) 03/31/17 07:30 Hepatitis C Antibody Negative (NEGATIVE) 03/31/17 07:30 Influenza Typ A,B (EIA) Negative for flu a/b (NEGATIVE) 04/01/17 13:35 Ur L.pneumophila Ag Negative (NEGATIVE) 04/03/17 19:30 - Hospital Course Hospital Course: Admit: A 71 year old female patient with a history of metastatic breast cancer, presents to the emergency department with an infection on her right breast. The patient's daughter states that after a visit to the oncologist, he advised that they come to the emergency department for the infection. She also noted that the patient has had intermittent fevers, up to 101.6, over the past several days. She has had a poor appetite of late as well as body aches. The patient denies nausea, vomiting, diarrhea, shortness of breath, headache, dizziness, or any other complaint. Throughout the hospital course, the following imaging was performed: 04/04: US Abd - performed for worsening transaminitis - only finding was hepatic steatosis 03/31: Chest CT - 4.3X4.9X5.5 Exophytic R Breast Mass. Several pulm nodules, suggestion METS. YISSEL opacity suggesting mets VS other 03/30: CXR - performed for sepsis - nad Patient was septic upon admission, with a fever, tachycardia, and WBC 4.0. Sepsis was 2/2 her infected breast mass. Patient was started on ABx and she began to improve. Throughout her stay the following recommendations were made from specialists: Surgery's recommendations were: - wound care --> xeroform, 4x4s, tape; IV abx; pain management ID's Recs were: Vancomycin, Zosyn and Doxycycline to complete a 4-7 day course Heme's Recs were: Switch her to chemotherapy. Dr. Henderson had discussed several options with her and decided to start on oral Xeloda, once clinically stable. In addition, EOL care and options were provided to patient. She decided to change her status to DNR DNI. Patient was then deemed stable for d/c to TCU for IV ABx. Discharge Exam - Additional Findings Additional findings: VS as above Constitutional: a&o x 4, nad Head and Neck: neck supple, no jvd, trachea midline, carotid midline, no cervical/head mass Eyes: vida, nonicteric sclera, eom intact ENT: auditory acuity grossly intact, throat not congested, no nasal deformity Cardio: rrr, no m/r/g, no carotid bruit, nml s1, s2 Chest: +severely infected Right breast with purulent drainage from one of many lesions. TTP. Wound was cleaned and re-dressed by myself. Pulm: no accessory muscle use, equal nml breath sounds bilaterally, ctab Abd: s/nt/nd, nbs x 4 q, no palpable masses Derm: no rashes, no ulcers, no lesions Extr: no edema, no cyanosis, no calf tenderness, no lesions, no varicosities Neuro: cn II-XII grossly intact, ue and le 5/5 muscle strength bilaterally, no los ue, le bilaterally and core Discharge Plan - Follow Up Plan Condition: FAIR Disposition: TRANSF TO SNF Instructions: Breast Cancer in Women (DC), Sepsis (GEN), Pharmacological Management of Cancer Pain (DC), Back Pain (GEN) Additional Instructions: 1. Please take medications as prescribed 2. Make sure to abide by TCU 3. We will follow you while you arein TCU
== END 2017-04-04 18:34 | DRG 871 ==
LOC: ED 12:15 → ERH 14:30 → 5RSO 16:42
PROVIDERS: ADMIT Family Medicine; ATTEND Family Medicine
DX: A41.9 Sepsis, unspecified organism (principal); J18.9 Pneumonia, unspecified organism; I21.19 ST elevation (STEMI) myocardial infarction involving other coronary artery of inferior wall; D61.818 Other pancytopenia; J90 Pleural effusion, not elsewhere classified; E87.2 Acidosis; E46 Unspecified protein-calorie malnutrition; C78.00 Secondary malignant neoplasm of unspecified lung; C78.5 Secondary malignant neoplasm of large intestine and rectum; J44.0 Chronic obstructive pulmonary disease with (acute) lower respiratory infection; C79.51 Secondary malignant neoplasm of bone; J98.11 Atelectasis; K86.89 Other specified diseases of pancreas; C50.911 Malignant neoplasm of unspecified site of right female breast; D64.9 Anemia, unspecified; E11.65 Type 2 diabetes mellitus with hyperglycemia; N61.0 Mastitis without abscess; C50.912 Malignant neoplasm of unspecified site of left female breast; E55.9 Vitamin D deficiency, unspecified; E66.9 Obesity, unspecified; Z68.30 Body mass index [BMI] 30.0-30.9, adult; Y95 Nosocomial condition; M19.90 Unspecified osteoarthritis, unspecified site; Z17.0 Estrogen receptor positive status [ER+]; E87.6 Hypokalemia; I11.9 Hypertensive heart disease without heart failure; I51.7 Cardiomegaly; Z90.49 Acquired absence of other specified parts of digestive tract; Z90.710 Acquired absence of both cervix and uterus; Z87.891 Personal history of nicotine dependence; Z92.3 Personal history of irradiation; Z66 Do not resuscitate; K59.00 Constipation, unspecified; K76.0 Fatty (change of) liver, not elsewhere classified; F41.9 Anxiety disorder, unspecified; R26.81 Unsteadiness on feet; Z98.42 Cataract extraction status, left eye; Z98.41 Cataract extraction status, right eye; R74.0 Nonspecific elevation of levels of transaminase and lactic acid dehydrogenase [LDH]; R00.0 Tachycardia, unspecified; R82.4 Acetonuria; B95.7 Other staphylococcus as the cause of diseases classified elsewhere

== ENCOUNTER 2017-04-04 18:34 | Inpatient (IN) | payer OTHER, MEDICARE ==
[2017-04-04 19:28] VITALS: BMI 36.8
[2017-04-04] MEDS ORDERED: Benzocaine/Menthol (Cepacol) Lozenge MT PRN (19:31)
[2017-04-04] MEDS ORDERED: Albuterol-Ipratrop 3 mg / 0.5 (3 ml) UD IH PRN (20:09)
[2017-04-04] MEDS ORDERED: Sodium Chloride 0.9% 1,000 ML IV SCH (20:15)
[2017-04-04] MEDS: Albuterol-Ipratrop 3 mg / 0.5 (3 ml) UD IH SCH (20:41)
[2017-04-04] MEDS: oxyCODONE 10 mg Immediate Release Tab PO PRN (21:18)
[2017-04-04] MEDS: Vancomycin 1gm in NS 250ml 1 GM/250 ML BAG IVPB SCH (21:24)
--- NOTE | 2017-04-04 21:25 | CP.PCM.HP ---
<Rafael Lam - Last Filed: 04/04/17 21:22> History of Present Illness - History of Present Illness History of Present Illness: 71 y/o F w/ PMHx of breast Ca presented to the ED c/o infected breast cancer, now sent to TCU for IV ABx. Pt c/o generalized weakness and and pain [id number]. Pt admits to fevers ~101.5 and myalgia, which is relived by Tylenol. Pt is unsure when breast mass became worse. Pt admits to drainage from lesion. Reports daughter, not at bedside, has been caring for the lesion. Pt admits to worsening productive cough w/ thick clear sputum. Pt denies SOB, CP, N/V, D/C. Meds: reviewed in chart NKDA PSHx: cholecystectomy, hysterectomy MHx: breast cancer metastatic to bone, chest wall, s/p multiple hormonal therapy treatments, s/p radiation therapy,back pain kyphoplasty. Family History: Non contributory. Social History: Former smoker, no alcohol or drug use. Live independently. Her family is supportive. Advance Care Planing: She does not have an Advanced Directive. Is now DNI, DNR Review of Systems:As per HPI, all other systems reviewed and are negative. Present on Admission - Present on Admission Any Indicators Present on Admission: No Past Patient History - Infectious Disease Hx of Infectious Diseases: None - Tetanus Immunizations Tetanus Immunization: Unknown - Past Social History Smoking Status: Former Smoker - CARDIAC Hx Cardiac Disorders: No Hx Angina: No Hx Cardia Arrhythmia: No Hx Circulatory Problems: No Hx Congestive Heart Failure: No Hx Heart Murmur: No Hx Heart Transplant: No Hx Hypertension: No Hx Internal Defibrillator: No Hx Mitral Valve Prolapse: No Hx Pacemaker: No Hx Peripheral Edema: No Hx Peripheral Vascular Disease: No - PULMONARY Hx Respiratory Disorders: Yes (SMOKED CIGARETTES QUIT 1981 PPD) Hx Asthma: No Hx Bronchitis: No Hx Chronic Obstructive Pulmonary Disease (COPD): No Hx Emphysema: No Hx Pneumonia: No Hx Respiratory Aspiration: No Hx Respiratory Tract Infection: No Hx Sleep Apnea: No Hx Tuberculosis: No - NEUROLOGICAL Hx Neurological Disorder: No Hx Alzheimer's Disease: No HX Cerebrovascular Accident: No Hx Dementia: No Hx Dizziness: No Hx Meningitis: No Hx Migraine: No Hx Parkinson's Disease: No Hx Seizures: No Hx Transient Ischemic Attacks (TIA): No - HEENT Hx HEENT Problems: Yes Hx Blind: No Hx Cataracts: Yes (h/o cataract surgery) Hx Deafness: No Hx Difficulty Chewing: No Hx Epistaxis: No Hx Glaucoma: No Hx Macular Degeneration: No - RENAL Hx Chronic Kidney Disease: No Hx Dialysis: No Hx Kidney Stones: No Hx Neurogenic Bladder: No Hx Pyelonephritis: No Hx Renal (Kidney) Cancer: No Hx Renal Failure: No - ENDOCRINE/METABOLIC Hx Endocrine Disorders: No Hx Adrenal Cancer: No Hx Diabetes Insipidus: No Hx Diabetes Mellitus Type 1: No Hx Diabetes Mellitus Type 2: No Hx Hyperthyroidism: No Hx Hypothyroidism: No Hx Systemic Lupus Erythematosus: No - HEMATOLOGICAL/ONCOLOGICAL Hx Blood Disorders: Yes Hx AIDS: No Hx Anemia: No Hx Cancer: Yes (breast cancer WITH METS,COLON AND BONE) Hx Chemotherapy: Yes (PILLS STARTED FEBRUARY 2017) Hx Cirrhosis: No Hx Hemophilia: No Hx Hepatitis A: No Hx Hepatitis B: No Hx Hepatitis C: No Hx Metastesis: No Hx Shingles: No Hx Sickle Cell Disease: No Hx Unexplained Bleeding: No Other/Comment: RADIATION - INTEGUMENTARY Hx Dermatological Problems: Yes Hx Basil Cell: No Hx Eczema: No Hx Melanoma: No Hx Psoriasis: No Hx Squamous Cell: No Other/Comment: 03-30-17 CODE SEPSIS-RIGHT BREAST INFECTION,MID LOWER BACK DIMPLING OF SKIN,DRY SCABBED AREA.LEFT 0.3 CM WOUND TO LABIA MAJORA.BILATERAL GROIN AREA DARKENED SKIN DISCOLORATION - MUSCULOSKELETAL/RHEUMATOLOGICAL Hx Arthritis: Yes - GASTROINTESTINAL Hx Gastrointestinal Disorders: Yes (CHOLECYSTECTOMY,CONSTIPATION) - GENITOURINARY/GYNECOLOGICAL Hx Genitourinary Disorders: No - PSYCHIATRIC Hx Psychophysiologic Disorder: Yes Hx Anxiety: Yes Hx Bipolar Disorder: No Hx Depression: No Hx Emotional Abuse: No Hx Hallucinations: No Hx Panic Symptoms: No Hx Post Traumatic Stress Disorder: No Hx Psychosis: No Hx Physical Abuse: No Hx Schizophrenia: No Hx Sexual Abuse: No Hx Substance Use: No - SURGICAL HISTORY Hx Surgeries: Yes Hx Amputation: No Hx Appendectomy: No Hx Cardiac Catheterization: No Hx Cholecystectomy: Yes Hx Coronary Stent: No Hx Gastric Bypass Surgery: No Hx Hysterectomy: Yes Hx Joint Replacement: No Hx Kidney Transplant: No Hx Liver Transplant: No Hx Mastectomy: No Hx Musculoskeletal Surgery: No Hx Open Heart Surgery: No Hx Orthopedic Surgery: No Hx Splenectomy: No Hx Valve Replacement: No - ANESTHESIA Hx Anesthesia: Yes Hx Anesthesia Reactions: No Meds Allergies/Adverse Reactions: Allergies Allergy/AdvReac Type Severity Reaction Status Date / Time No Known Allergies Allergy Verified 03/30/17 18:50 Physical Exam - Additional Findings Additional findings: VS as above Constitutional: a&o x 4, nad Head and Neck: neck supple, no jvd, trachea midline, carotid midline, no cervical/head mass Eyes: vida, nonicteric sclera, eom intact ENT: auditory acuity grossly intact, throat not congested, no nasal deformity Cardio: rrr, no m/r/g, no carotid bruit, nml s1, s2 Chest: +severely infected Right breast with purulent drainage from one of many lesions. TTP. Wound was cleaned and re-dressed by myself. Pulm: no accessory muscle use, equal nml breath sounds bilaterally, ctab Abd: s/nt/nd, nbs x 4 q, no palpable masses Derm: no rashes, no ulcers, no lesions Extr: no edema, no cyanosis, no calf tenderness, no lesions, no varicosities Neuro: cn II-XII grossly intact, ue and le 5/5 muscle strength bilaterally, no los ue, le bilaterally and core Results - Labs Labs: Laboratory Results - last 24 hr 04/04/17 21:01 POC Glucose (mg/dL) 224 H Assessment & Plan - Assessment and Plan (Free Text) Assessment: 71 year old female with a PMH of stage 4 breast CA with metastases to bone and colon who presented [place] [facility] with complaints of worsened pain on right breast mass with associated drainage and fever, now in TCU for deconditioning and IV ABx. Plan: 1. Right breast bacterial superinfection of known right stage IV ER/PA+ HER2- Breast CA with associated pain disorder ID, Hem/Onc, and surgery followings, recs appreciated WCx R breast growing G+ Coag negative staph Continues on vancomycin/doxycyline/zosyn day 5 On fentanyl patch, oxycodone 5 and now morphine, will trial giving 2 tabs of oxycodone and seeing if this improves her pain throughout the day vs breakthrough with just morphine 2. Recurrent bronchitis - improved Pulmonology following, recs are appreciated Procal and influenza were negative Continue q6h and q2h PRN nebs but changed pulmicort to QD from Q12 to monitor if her cough may be due to this Cont benzonate and cepacol PRN 3. Hyperglycemia No noted hx of DM continues to have elevated fingersticks Pending HgbA1C, plan to transition to oral hypoglycemics per her request, see below Continue RISS high 4. Transaminitis Ordered abd US to evaluation AST and Alk phos, no ALT elevation, possible metastases in liver Hepatitis panel was negative 5. Pancytopenia Likely 2/2 breast CA Hem/Onc following No active bleeding Hemodynamically stable Continue to monitor 6. Hypovitaminosis D Continue supplementation 7. Hx arthritis Continue on pain regimen as above 8. Pseudohypocalcemia Velvet Ca is 8.88 from pseudohypocalcemia 9. Hypokalemia - repleted GI/DVT ppx: protonix/SCDs <Antony Kelley - Last Filed: 04/11/17 09:56> Results - Vital Signs Recent Vital Signs: Last Vital Signs Temp 98.4 F 04/10/17 16:15 Pulse 102 H 04/10/17 16:15 Resp 20 04/10/17 16:15 BP 145/65 04/10/17 17:31 Pulse Ox 95 04/10/17 16:15 - Labs Result Diagrams: 04/11/17 07:27 04/11/17 07:27 Labs: Laboratory Results - last 24 hr 04/10/17 04/10/17 04/10/17 01:52 05:43 08:30 WBC RBC Hgb Hct MCV MCH MCHC RDW Plt Count MPV Sodium Potassium Chloride Carbon Dioxide Anion Gap BUN Creatinine Est GFR ( Amer) Est GFR (Non-Af Amer) POC Glucose (mg/dL) 264 H 256 H Random Glucose Calcium Total Bilirubin AST ALT Alkaline Phosphatase Total Protein Albumin Globulin Albumin/Globulin Ratio IgG 650.1 L IgA 263.8 IgM 68.0 04/10/17 04/10/17 04/10/17 11:06 16:36 21:35 WBC RBC Hgb Hct MCV MCH MCHC RDW Plt Count MPV Sodium Potassium Chloride Carbon Dioxide Anion Gap BUN Creatinine Est GFR ( Amer) Est GFR (Non-Af Amer) POC Glucose (mg/dL) 228 H 307 H 233 H Random Glucose Calcium Total Bilirubin AST ALT Alkaline Phosphatase Total Protein Albumin Globulin Albumin/Globulin Ratio IgG IgA IgM 04/11/17 04/11/17 07:27 07:27 WBC 7.8 RBC 3.64 Hgb 10.9 L D Hct 33.4 L MCV 91.8 D MCH 29.9 MCHC 32.6 RDW 17.6 H Plt Count 108 L MPV 9.2 Sodium 140 Potassium 3.4 L Chloride 96 L Carbon Dioxide 34 H Anion Gap 13 BUN 24 H Creatinine 0.6 Est GFR ( Amer) > 60 Est GFR (Non-Af Amer) > 60 POC Glucose (mg/dL) Random Glucose 243 H Calcium 8.3 L Total Bilirubin 1.2 AST 404 H ALT 80 H Alkaline Phosphatase 942 H Total Protein 5.8 Albumin 2.9 L Globulin 2.8 Albumin/Globulin Ratio 1.0 L IgG IgA IgM Attending/Attestation - Attestation I have personally seen and examined this patient.: Yes I have fully participated in the care of the patient.: Yes I have reviewed all pertinent clinical information: Yes Notes (Text): 04/11/17 09:56 Medical record note made by the resident after discussion with my direction and iinput after the patient was seen and examined by me. The chart is a reflection of my personal history, physical, data review and plan.
[2017-04-05] MEDS: Piperacillin/Tazobact 3.375 gm 100 ML IVPB SCH ×4 (00:30→18:08)
[2017-04-05] MEDS: Albuterol-Ipratrop 3 mg / 0.5 (3 ml) UD IH SCH ×4 (01:07→20:28)
[2017-04-05] MEDS: Insulin Reg-HIGH-Coverage SC SCH ×5 (01:28→21:47)
[2017-04-05] MEDS: oxyCODONE 10 mg Immediate Release Tab PO PRN ×3 (04:58→22:58)
[2017-04-05] MEDS: Budesonide 0.5 mg/2 ml Inhal Susp UD IH SCH (07:36)
[2017-04-05 07:41] LABS: MEAN CELL VOLUME 95.6 fl (80.0-105.0); MEAN CORPUSCULAR HEMOGLOBIN 30.8 pg (25.0-35.0); MEAN CORPUSCULAR HGB CONC 32.2 g/dl (31.0-37.0); MEAN PLATELET VOLUME 9.4 fl (7.0-11.0); RED CELL DISTRIBUTION WIDTH 18.6 % (11.5-14.5); WHITE BLOOD COUNT 4.8 10^3/ul (4.5-11.0)
[2017-04-05 07:54] LABS: HEMATOCRIT 23.9 % (36.0-48.0)
[2017-04-05 07:58] LABS: ALKALINE PHOSPHATASE 300 U/L (38-133); ALT/SGPT 36 U/L (7-56); AST/SGOT 159 U/L (15-39); BILIRUBIN,TOTAL 0.6 mg/dL (0.2-1.3); BLOOD UREA NITROGEN 7 mg/dL (7-21); CALCIUM 7.9 mg/dL (8.4-10.5); CARBON DIOXIDE 28 mmol/L (21-33); CHLORIDE 101 mmol/L (95-110); GFR AFRICAN-AMERICAN > 60; GLUCOSE,RANDOM 120 mg/dL (70-110); POTASSIUM 3.3 mmol/L (3.6-5.0); SODIUM 135 mmol/L (132-148)
[2017-04-05 08:12] LABS: ALB/GLOB RATIO 0.9 (1.1-1.8); TOTAL PROTEIN 5.2 g/dL (5.8-8.3)
[2017-04-05] MEDS: Vancomycin 1gm in NS 250ml 1 GM/250 ML BAG IVPB SCH ×2 (08:25→21:11)
[2017-04-05] MEDS: Insulin Human NPH 1 UNITS/0.01 ML SC SCH (08:25)
[2017-04-05] MEDS ORDERED: Insulin Human NPH 1 UNITS/0.01 ML SC SCH (10:00)
[2017-04-05] MEDS ORDERED: POTASSIUM GLUCONATE PO SCH (10:00)
[2017-04-05] MEDS: Calcium-Vit D 250 mg-125 Units Tab UD PO SCH (11:08)
[2017-04-05] MEDS: LORazepam Half Tablet 0.25 MG PO SCH ×3 (11:10→18:14)
--- NOTE | 2017-04-05 13:13 | CP.PCM.PN ---
Subjective - Date & Time of Evaluation Date of Evaluation: 04/05/17 Time of Evaluation: 13:00 - Subjective Subjective: Lethargic, complaining of feeling very fatigued Objective - Vital Signs/Intake and Output Vital Signs (last 24 hours): Temp Pulse Resp BP Pulse Ox 98.3 F 90 21 116/64 04/05/17 12:43 04/05/17 12:43 04/05/17 12:43 04/05/17 12:43 - Medications Medications: Current Medications Acetaminophen (Tylenol 325mg Tab) 650 mg PO Q4H PRN PRN Reason: Pain, moderate (4-7) Albuterol/Ipratropium (Duoneb 3 Mg/0.5 Mg (3 Ml) Ud) 3 ml IH [id number] [facility] Last Admin: 04/05/17 07:35 Dose: 3 ml Albuterol/Ipratropium (Duoneb 3 Mg/0.5 Mg (3 Ml) Ud) 3 ml IH Q2H PRN PRN Reason: Shortness of Breath Benzocaine/Menthol (Cepacol Sore Throat) 1 reno MT Q2H PRN PRN Reason: Sore Throat Benzonatate (Tessalon Perles) 100 mg PO BID [facility] Last Admin: 04/05/17 11:10 Dose: 100 mg Budesonide (Pulmicort Respules) 0.5 mg IH DAILY [facility] Last Admin: 04/05/17 07:36 Dose: 0.5 mg Calcium/Vitamin D (Oscal-D 250 Mg-125 Units Tab) 2 tab PO DAILY [facility] Last Admin: 04/05/17 11:08 Dose: 2 tab Fentanyl (Duragesic) 1 patch TD Q72H [facility] Last Admin: 04/04/17 21:17 Dose: 1 patch Home Med (Home Med) 1 unit PO DAILY [facility] Doxycycline Hyclate 100 mg/ (Sodium Chloride) 100 mls @ 100 mls/hr IVPB Q12 ANABELLA PRN Reason: Protocol Last Admin: 04/05/17 10:55 Dose: 100 mls/hr Sodium Chloride (Sodium Chloride 0.9%) 1,000 mls @ 70 mls/hr IV .[id number] [facility] Last Admin: 04/04/17 21:26 Dose: 70 mls/hr Vancomycin HCl (Vancomycin 1gm) 1 gm in 250 mls @ 167 mls/hr IVPB Q12H ANABELLA PRN Reason: Protocol Last Admin: 04/05/17 08:25 Dose: 167 mls/hr Piperacillin Sod/Tazobactam Sod (Zosyn 3.375 In Ns 100ml) 100 mls @ 200 mls/hr IVPB Q6 ANABELLA PRN Reason: Protocol Stop: 04/09/17 00:01 Last Admin: 04/05/17 05:00 Dose: 200 mls/hr Insulin Human NPH (Humulin N) 10 units SC ACB [facility] Last Admin: 04/05/17 08:25 Dose: 10 units Insulin Human NPH (Humulin N) 10 units SC DAILY [facility] Insulin Human Regular (Humulin R High) 0 units SC ACHS ANABELLA PRN Reason: Protocol Last Admin: 04/05/17 06:55 Dose: Not Given Lorazepam (Ativan) 0.25 mg PO TID ANABELLA PRN Reason: Protocol Last Admin: 04/05/17 11:10 Dose: 0.25 mg Metoprolol Tartrate (Lopressor) 25 mg PO 0800,1800 [facility] Last Admin: 04/05/17 08:30 Dose: 25 mg Oxycodone HCl (Oxycodone Immediate Release Tab) 10 mg PO Q6H PRN PRN Reason: Pain, severe (8-10) Last Admin: 04/05/17 04:58 Dose: 10 mg - Labs Labs: 04/05/17 07:00 04/05/17 07:00 - Constitutional Appears: Chronically Ill - Head Exam Head Exam: NORMAL INSPECTION - Eye Exam Eye Exam: Normal appearance, PERRL - ENT Exam ENT Exam: Mucous Membranes Moist - Respiratory Exam Respiratory Exam: Decreased Breath Sounds, NORMAL BREATHING PATTERN - Cardiovascular Exam Cardiovascular Exam: REGULAR RHYTHM, +S1, +S2 - GI/Abdominal Exam GI & Abdominal Exam: Soft, Normal Bowel Sounds - Extremities Exam Extremities Exam: Normal Inspection - Neurological Exam Neurological Exam: Alert, Oriented x3 - Skin Skin Exam: Dry, Warm Assessment and Plan - Assessment and Plan (Free Text) Assessment: 71 year old female with history of breast cancer with bone metastases who is admitted with fungating breast mass, pneumonia. Patient is complaining of generalized bone pain. She states that gets minimal relief from Oxycodone 10 mg IR, which she scores at 7 after being medicated. In addition, she has been on Fentanyl transdermal 12 mcg since prior to admission. Would recommend increasing to Fentanyl 25 mcg. She is not on bowel regimen but reports having bowel movement every [address] George Lam notified of drop in hemoglobin from 8.8 to 7.7 today. Patient also complaining of extreme fatigue. She denies seeing blood in her urine / stool. Plan: Would increase Fentanyl transdermal patch to 25mcg. Monitor for opioid induced constipation Stat CBC per resident, Dr. George Lam
[2017-04-05 14:00] LABS: HEMATOCRIT 30.2 % (36.0-48.0); MEAN CELL VOLUME 95.6 fl (80.0-105.0); MEAN CORPUSCULAR HEMOGLOBIN 31.3 pg (25.0-35.0); MEAN CORPUSCULAR HGB CONC 32.8 g/dl (31.0-37.0); MEAN PLATELET VOLUME 9.3 fl (7.0-11.0); PLATELET COUNT 89 10^3/uL (120.0-450.0); RED CELL DISTRIBUTION WIDTH 18.2 % (11.5-14.5); WHITE BLOOD COUNT 5.6 10^3/ul (4.5-11.0)
[2017-04-05 14:16] LABS: ADD MANUAL DIFF? YES
[2017-04-05 14:47] LABS: NEUTROPHIL 64 % (50.0-70.0)
[2017-04-05 14:48] LABS: ATYPICAL LYMPHOCYTE 1 % (0.0-0.0); BAND 4 % (0-2); EOSINOPHIL 2 % (0.0-3.0); PLATELET ESTIMATE LOW (NORMAL)
[2017-04-05 14:49] LABS: ANISOCYTOSIS 1+; HYPOCHROMIA 1+; OVALOCYTES SLIGHT; POIKILOCYTOSIS SLIGHT
--- NOTE | 2017-04-05 15:51 | CP.PCM.CON ---
History of Present Illness - History of Present Illness History of Present Illness: 71 year old female with PMH of breast cancer, obesity with BMI 30, was initially admitted for pain in the breast and she was found to have left sided pneumonia as well. She is now transferred to [facility] for continued medical therapy and physical rehab. Infectious Diseases consult is requested to continue pneumonia treatment. She denies fever or chills, no nausea or vomiting, no headache or dizziness, no chest pain, no SOB, no abdominal pain, no diarrhea, no dysuria. Review of Systems - Review of Systems All systems: reviewed and no additional remarkable complaints except (as per HPI ) Past Patient History - Infectious Disease Hx of Infectious Diseases: None - Tetanus Immunizations Tetanus Immunization: Unknown - Past Social History Smoking Status: Former Smoker - CARDIAC Hx Cardiac Disorders: No Hx Angina: No Hx Cardia Arrhythmia: No Hx Circulatory Problems: No Hx Congestive Heart Failure: No Hx Heart Murmur: No Hx Heart Transplant: No Hx Hypertension: No Hx Internal Defibrillator: No Hx Mitral Valve Prolapse: No Hx Pacemaker: No Hx Peripheral Edema: No Hx Peripheral Vascular Disease: No - PULMONARY Hx Respiratory Disorders: Yes (SMOKED CIGARETTES QUIT 1981 PPD) Hx Asthma: No Hx Bronchitis: No Hx Chronic Obstructive Pulmonary Disease (COPD): No Hx Emphysema: No Hx Pneumonia: No Hx Respiratory Aspiration: No Hx Respiratory Tract Infection: No Hx Sleep Apnea: No Hx Tuberculosis: No - NEUROLOGICAL Hx Neurological Disorder: No Hx Alzheimer's Disease: No HX Cerebrovascular Accident: No Hx Dementia: No Hx Dizziness: No Hx Meningitis: No Hx Migraine: No Hx Parkinson's Disease: No Hx Seizures: No Hx Transient Ischemic Attacks (TIA): No - HEENT Hx HEENT Problems: Yes Hx Blind: No Hx Cataracts: Yes (h/o cataract surgery) Hx Deafness: No Hx Difficulty Chewing: No Hx Epistaxis: No Hx Glaucoma: No Hx Macular Degeneration: No - RENAL Hx Chronic Kidney Disease: No Hx Dialysis: No Hx Kidney Stones: No Hx Neurogenic Bladder: No Hx Pyelonephritis: No Hx Renal (Kidney) Cancer: No Hx Renal Failure: No - ENDOCRINE/METABOLIC Hx Endocrine Disorders: No Hx Adrenal Cancer: No Hx Diabetes Insipidus: No Hx Diabetes Mellitus Type 1: No Hx Diabetes Mellitus Type 2: No Hx Hyperthyroidism: No Hx Hypothyroidism: No Hx Systemic Lupus Erythematosus: No - HEMATOLOGICAL/ONCOLOGICAL Hx Blood Disorders: Yes Hx AIDS: No Hx Anemia: No Hx Cancer: Yes (breast cancer WITH METS,COLON AND BONE) Hx Chemotherapy: Yes (PILLS STARTED FEBRUARY 2017) Hx Cirrhosis: No Hx Hemophilia: No Hx Hepatitis A: No Hx Hepatitis B: No Hx Hepatitis C: No Hx Metastesis: No Hx Shingles: No Hx Sickle Cell Disease: No Hx Unexplained Bleeding: No Other/Comment: RADIATION - INTEGUMENTARY Hx Dermatological Problems: Yes Hx Basil Cell: No Hx Eczema: No Hx Melanoma: No Hx Psoriasis: No Hx Squamous Cell: No Other/Comment: 03-30-17 CODE SEPSIS-RIGHT BREAST INFECTION,MID LOWER BACK DIMPLING OF SKIN,DRY SCABBED AREA.LEFT 0.3 CM WOUND TO LABIA MAJORA.BILATERAL GROIN AREA DARKENED SKIN DISCOLORATION - MUSCULOSKELETAL/RHEUMATOLOGICAL Hx Arthritis: Yes - GASTROINTESTINAL Hx Gastrointestinal Disorders: Yes (CHOLECYSTECTOMY,CONSTIPATION) - GENITOURINARY/GYNECOLOGICAL Hx Genitourinary Disorders: No - PSYCHIATRIC Hx Psychophysiologic Disorder: Yes Hx Anxiety: Yes Hx Bipolar Disorder: No Hx Depression: No Hx Emotional Abuse: No Hx Hallucinations: No Hx Panic Symptoms: No Hx Post Traumatic Stress Disorder: No Hx Psychosis: No Hx Physical Abuse: No Hx Schizophrenia: No Hx Sexual Abuse: No Hx Substance Use: No - SURGICAL HISTORY Hx Surgeries: Yes Hx Amputation: No Hx Appendectomy: No Hx Cardiac Catheterization: No Hx Cholecystectomy: Yes Hx Coronary Stent: No Hx Gastric Bypass Surgery: No Hx Hysterectomy: Yes Hx Joint Replacement: No Hx Kidney Transplant: No Hx Liver Transplant: No Hx Mastectomy: No Hx Musculoskeletal Surgery: No Hx Open Heart Surgery: No Hx Orthopedic Surgery: No Hx Splenectomy: No Hx Valve Replacement: No - ANESTHESIA Hx Anesthesia: Yes Hx Anesthesia Reactions: No Meds Allergies/Adverse Reactions: Allergies Allergy/AdvReac Type Severity Reaction Status Date / Time No Known Allergies Allergy Verified 03/30/17 18:50 - Medications Medications: Current Medications Acetaminophen (Tylenol 325mg Tab) 650 mg PO Q4H PRN PRN Reason: Pain, moderate (4-7) Albuterol/Ipratropium (Duoneb 3 Mg/0.5 Mg (3 Ml) Ud) 3 ml IH [id number] [facility] Last Admin: 04/04/17 20:41 Dose: 3 ml Albuterol/Ipratropium (Duoneb 3 Mg/0.5 Mg (3 Ml) Ud) 3 ml IH Q2H PRN PRN Reason: Shortness of Breath Benzocaine/Menthol (Cepacol Sore Throat) 1 reno MT Q2H PRN PRN Reason: Sore Throat Benzonatate (Tessalon Perles) 100 mg PO BID [facility] Budesonide (Pulmicort Respules) 0.5 mg IH DAILY [facility] Calcium/Vitamin D (Oscal-D 250 Mg-125 Units Tab) 2 tab PO DAILY [facility] Fentanyl (Duragesic) 1 patch TD Q72H [facility] Home Med (Home Med) 1 unit PO DAILY [facility] Doxycycline Hyclate 100 mg/ (Sodium Chloride) 100 mls @ 100 mls/hr IVPB Q12 [facility] PRN Reason: Protocol Sodium Chloride (Sodium Chloride 0.9%) 1,000 mls @ 70 mls/hr IV .[id number] [facility] Vancomycin HCl (Vancomycin 1gm) 1 gm in 250 mls @ 167 mls/hr IVPB Q12H [facility] PRN Reason: Protocol Piperacillin Sod/Tazobactam Sod (Zosyn 3.375 In Ns 100ml) 100 mls @ 200 mls/hr IVPB Q6 [facility] PRN Reason: Protocol Stop: 04/05/17 06:29 Insulin Human NPH (Humulin N) 10 units SC ACB [facility] Insulin Human NPH (Humulin N) 10 units SC DAILY [facility] Insulin Human Regular (Humulin R High) 0 units SC ACHS [facility] PRN Reason: Protocol Lorazepam (Ativan) 0.25 mg PO TID [facility] PRN Reason: Protocol Metoprolol Tartrate (Lopressor) 25 mg PO 0800,1800 [facility] Oxycodone HCl (Oxycodone Immediate Release Tab) 10 mg PO Q6H PRN PRN Reason: Pain, severe (8-10) Physical Exam - Constitutional Appears: Non-toxic, No Acute Distress - Head Exam Head Exam: NORMAL INSPECTION - ENT Exam ENT Exam: Mucous Membranes Moist - Neck Exam Neck exam: Negative for: Lymphadenopathy, Meningismus - Respiratory Exam Respiratory Exam: Decreased Breath Sounds - Cardiovascular Exam Cardiovascular Exam: +S1, +S2 - GI/Abdominal Exam GI & Abdominal Exam: Soft. absent: Tenderness Results - Labs Result Diagrams: 04/05/17 13:55 04/05/17 07:00 Labs: Laboratory Results - last 24 hr 04/04/17 21:01 POC Glucose (mg/dL) 224 H Assessment & Plan - Assessment and Plan (Free Text) Plan: Assessment Sepsis due to left sided healthcare-associated pneumonia and probable superinfection of the breast cancer area, clinically improving Breast cancer obesity with BMI 30 Plan continue Vancomycin, Zosyn and Doxycycline (day 6) to complete a 4-7 day course will continue to monitor clinically
[2017-04-05] MEDS ORDERED: Potassium Chloride 20 mEq ER Tab PO ONE (16:10)
[2017-04-06] MEDS: Piperacillin/Tazobact 3.375 gm 100 ML IVPB SCH ×4 (00:03→17:37)
[2017-04-06] MEDS: Albuterol-Ipratrop 3 mg / 0.5 (3 ml) UD IH SCH ×4 (02:00→21:49)
[2017-04-06] MEDS: Insulin Reg-HIGH-Coverage SC SCH ×4 (06:33→21:29)
[2017-04-06] MEDS: Insulin Human NPH 1 UNITS/0.01 ML SC SCH ×2 (06:33→17:46)
[2017-04-06] MEDS ORDERED: Potassium Chloride 20 mEq ER Tab PO ONE (06:59)
[2017-04-06] MEDS: Budesonide 0.5 mg/2 ml Inhal Susp UD IH SCH (07:37)
[2017-04-06 07:42] LABS: BASO # 0.05 K/mm3 (0.0-2.0); EOS # 0.2 (0.0-0.7); EOS % 3.3 % (1.5-5.0); GRAN # 2.38 (1.4-6.5); GRAN % 48.3 % (50.0-68.0); HEMATOCRIT 26.4 % (36.0-48.0); LYMPH # 1.5 (1.2-3.4); LYMPH % 29.5 % (22.0-35.0); MEAN CELL VOLUME 95.7 fl (80.0-105.0); MEAN CORPUSCULAR HEMOGLOBIN 30.4 pg (25.0-35.0); MEAN CORPUSCULAR HGB CONC 31.8 g/dl (31.0-37.0); MEAN PLATELET VOLUME 8.9 fl (7.0-11.0); MONO # 0.9 (0.1-0.6); MONO % 17.9 % (1.0-6.0); PLATELET COUNT 87 10^3/uL (120.0-450.0); RED CELL DISTRIBUTION WIDTH 18.6 % (11.5-14.5); WHITE BLOOD COUNT 4.9 10^3/ul (4.5-11.0)
[2017-04-06 07:48] LABS: ADD MANUAL DIFF? NO
[2017-04-06 08:01] LABS: ALB/GLOB RATIO 0.9 (1.1-1.8); ALKALINE PHOSPHATASE 323 U/L (38-133); ALT/SGPT 34 U/L (7-56); AST/SGOT 221 U/L (15-39); BILIRUBIN,TOTAL 0.8 mg/dL (0.2-1.3); BLOOD UREA NITROGEN 6 mg/dL (7-21); CALCIUM 7.8 mg/dL (8.4-10.5); CARBON DIOXIDE 27 mmol/L (21-33); CHLORIDE 101 mmol/L (98-107); GFR AFRICAN-AMERICAN > 60; GLUCOSE,RANDOM 104 mg/dL (70-110); MAGNESIUM 1.9 mg/dL (1.7-2.2); PHOSPHOROUS 2.6 mg/dL (2.5-4.5); POTASSIUM 3.6 mmol/L (3.6-5.0); SODIUM 136 mmol/L (132-148); TOTAL PROTEIN 5.4 g/dL (5.8-8.3)
[2017-04-06] MEDS: Vancomycin 1gm in NS 250ml 1 GM/250 ML BAG IVPB SCH ×2 (08:22→20:17)
[2017-04-06] MEDS: LORazepam Half Tablet 0.25 MG PO SCH ×3 (09:04→17:34)
[2017-04-06] MEDS: Calcium-Vit D 250 mg-125 Units Tab UD PO SCH (09:06)
[2017-04-06] MEDS ORDERED: Sodium Chloride 0.9% 1,000 ML IV SCH (13:27)
--- NOTE | 2017-04-06 13:32 | CP.PCM.PN ---
Subjective - Date & Time of Evaluation Date of Evaluation: 04/06/17 Time of Evaluation: 13:00 - Subjective Subjective: Complaining of persistent generalized bone pain. Denies nausea, vomiting , headache. Objective - Vital Signs/Intake and Output Vital Signs (last 24 hours): Temp Pulse Resp BP Pulse Ox 98.7 F 93 H 18 125/68 91 L 04/06/17 11:55 04/06/17 11:55 04/06/17 11:55 04/06/17 11:55 04/05/17 16:18 Intake and Output: 04/06/17 04/06/17 06:59 18:59 Intake Total 840 Balance 840 - Medications Medications: Current Medications Acetaminophen (Tylenol 325mg Tab) 650 mg PO Q4H PRN PRN Reason: Pain, moderate (4-7) Albuterol/Ipratropium (Duoneb 3 Mg/0.5 Mg (3 Ml) Ud) 3 ml IH [id number] [facility] Last Admin: 04/06/17 13:12 Dose: 3 ml Albuterol/Ipratropium (Duoneb 3 Mg/0.5 Mg (3 Ml) Ud) 3 ml IH Q2H PRN PRN Reason: Shortness of Breath Benzocaine/Menthol (Cepacol Sore Throat) 1 reno MT Q2H PRN PRN Reason: Sore Throat Benzonatate (Tessalon Perles) 100 mg PO BID [facility] Last Admin: 04/06/17 09:06 Dose: 100 mg Budesonide (Pulmicort Respules) 0.5 mg IH DAILY [facility] Last Admin: 04/06/17 07:37 Dose: 0.5 mg Calcium/Vitamin D (Oscal-D 250 Mg-125 Units Tab) 2 tab PO DAILY [facility] Last Admin: 04/06/17 09:06 Dose: 2 tab Fentanyl (Duragesic) 1 patch TD Q72H [facility] Doxycycline Hyclate 100 mg/ (Sodium Chloride) 100 mls @ 100 mls/hr IVPB Q12 [facility] PRN Reason: Protocol Last Admin: 04/06/17 09:08 Dose: 100 mls/hr Sodium Chloride (Sodium Chloride 0.9%) 1,000 mls @ 70 mls/hr IV .[id number] [facility] Last Admin: 04/04/17 21:26 Dose: 70 mls/hr Vancomycin HCl (Vancomycin 1gm) 1 gm in 250 mls @ 167 mls/hr IVPB Q12H [facility] PRN Reason: Protocol Last Admin: 04/06/17 08:22 Dose: 167 mls/hr Piperacillin Sod/Tazobactam Sod (Zosyn 3.375 In Ns 100ml) 100 mls @ 200 mls/hr IVPB Q6 [facility] PRN Reason: Protocol Stop: 04/09/17 00:01 Last Admin: 04/06/17 13:10 Dose: 200 mls/hr Insulin Human NPH (Humulin N) 10 units SC ACB [facility] Last Admin: 04/06/17 06:33 Dose: Not Given Insulin Human NPH (Humulin N) 10 units SC DAILY@1745 [facility] Insulin Human Regular (Humulin R High) 0 units SC ACHS [facility] PRN Reason: Protocol Last Admin: 04/06/17 13:06 Dose: 1 units Lorazepam (Ativan) 0.25 mg PO TID [facility] PRN Reason: Protocol Last Admin: 04/06/17 09:04 Dose: 0.25 mg Metoprolol Tartrate (Lopressor) 25 mg PO 0800,1800 [facility] Last Admin: 04/06/17 08:19 Dose: 25 mg Oxycodone HCl (Oxycodone Immediate Release Tab) 10 mg PO Q6H PRN PRN Reason: Pain, severe (8-10) Last Admin: 04/05/17 22:58 Dose: 10 mg - Labs Labs: 04/06/17 07:00 04/06/17 07:00 - Constitutional Appears: Chronically Ill - Head Exam Head Exam: NORMAL INSPECTION - Eye Exam Eye Exam: Normal appearance, PERRL - ENT Exam ENT Exam: Mucous Membranes Moist - Respiratory Exam Respiratory Exam: Decreased Breath Sounds, NORMAL BREATHING PATTERN - Cardiovascular Exam Cardiovascular Exam: REGULAR RHYTHM, +S1, +S2 - GI/Abdominal Exam GI & Abdominal Exam: Soft, Normal Bowel Sounds - Extremities Exam Additional comments: 2+ edema of both lower extremities - Neurological Exam Neurological Exam: Alert, Oriented x3 Assessment and Plan - Assessment and Plan (Free Text) Assessment: 71 year old female with history of metastatic breast cancer who was admitted with sepsis, fungating right breast mass, now positive for yeast in sputum. Plan: Discontinue Fentanyl 12mcg. Apply Fentanyl 25mcg transdermal patch now. Oxycodone IR 10 mg every 8 hours as needed for breakthrough pain. Colace 100 mg PO daily Decrease IV fluid rate to 50cc/hr
[2017-04-06] MEDS ORDERED: methylPREDNISolone 500 MG in Sodium Chloride 0.9% 100 ML IVPB ONE (13:34)
[2017-04-06 15:36] LABS: HEMATOCRIT 26.1 % (36.0-48.0)
--- NOTE | 2017-04-06 17:19 | RAD ---
HISTORY: Wheezing COMPARISON: CT chest 03/31/2017 FINDINGS: LUNGS: Interval more shallow lung volumes depicted Central pulmonary venous congestion. Concomitant hilar lymphadenopathy not excluded. Left pleural effusion probable PLEURA: Left pleural effusion probable, no pneumothorax apparent. CARDIOVASCULAR: Mild cardiomegaly OSSEOUS STRUCTURES: Thoracic spondylosis. High density in the upper lumbar vertebral body [address] CT chest kyphoplasty suspect. Patient is known lytic an osseous blastic metastases - history of breast cancer. A sclerotic lesion the proximal left humerus noted. VISUALIZED UPPER ABDOMEN: The increased density overlying the lateral right breast is consistent patient's large right breast mass OTHER FINDINGS: None. IMPRESSION: Interval central pulmonary venous congestion. Concomitant hilar lymphadenopathy possible/not excluded. Small left pleural effusion. Known osseous metastases. Known large right breasts malignant mass
--- NOTE | 2017-04-06 18:22 | CP.PCM.PN ---
Subjective - Date & Time of Evaluation Date of Evaluation: 04/06/17 Time of Evaluation: 11:25 - Subjective Subjective: Comfortable, not in distress, afebrile. Objective - Vital Signs/Intake and Output Vital Signs (last 24 hours): Temp Pulse Resp BP Pulse Ox 98.2 F 84 18 121/62 91 L 04/06/17 16:09 04/06/17 17:36 04/06/17 16:09 04/06/17 17:36 04/05/17 16:18 Intake and Output: 04/06/17 04/06/17 06:59 18:59 Intake Total 840 Balance 840 - Medications Medications: Current Medications Acetaminophen (Tylenol 325mg Tab) 650 mg PO Q4H PRN PRN Reason: Pain, moderate (4-7) Albuterol/Ipratropium (Duoneb 3 Mg/0.5 Mg (3 Ml) Ud) 3 ml IH [id number] [facility] Last Admin: 04/06/17 13:12 Dose: 3 ml Albuterol/Ipratropium (Duoneb 3 Mg/0.5 Mg (3 Ml) Ud) 3 ml IH Q2H PRN PRN Reason: Shortness of Breath Benzocaine/Menthol (Cepacol Sore Throat) 1 reno MT Q2H PRN PRN Reason: Sore Throat Benzonatate (Tessalon Perles) 100 mg PO BID [facility] Last Admin: 04/06/17 17:36 Dose: 100 mg Budesonide (Pulmicort Respules) 0.5 mg IH DAILY [facility] Last Admin: 04/06/17 07:37 Dose: 0.5 mg Calcium/Vitamin D (Oscal-D 250 Mg-125 Units Tab) 2 tab PO DAILY [facility] Last Admin: 04/06/17 09:06 Dose: 2 tab Docusate Sodium (Colace) 100 mg PO DAILY [facility] Last Admin: 04/06/17 14:36 Dose: 100 mg Fentanyl (Duragesic) 1 patch TD Q72H [facility] Last Admin: 04/06/17 13:49 Dose: 1 patch Fluconazole (Diflucan) 100 mg PO DAILY [facility] PRN Reason: Protocol Last Admin: 04/06/17 14:46 Dose: 100 mg Doxycycline Hyclate 100 mg/ (Sodium Chloride) 100 mls @ 100 mls/hr IVPB Q12 [facility] PRN Reason: Protocol Last Admin: 04/06/17 09:08 Dose: 100 mls/hr Vancomycin HCl (Vancomycin 1gm) 1 gm in 250 mls @ 167 mls/hr IVPB Q12H [facility] PRN Reason: Protocol Last Admin: 04/06/17 08:22 Dose: 167 mls/hr Piperacillin Sod/Tazobactam Sod (Zosyn 3.375 In Ns 100ml) 100 mls @ 200 mls/hr IVPB Q6 [facility] PRN Reason: Protocol Stop: 04/09/17 00:01 Last Admin: 04/06/17 17:37 Dose: 200 mls/hr Sodium Chloride (Sodium Chloride 0.9%) 1,000 mls @ 50 mls/hr IV .Q20H [facility] Last Admin: 04/06/17 13:49 Dose: 50 mls/hr Methylprednisolone 500 mg/ (Sodium Chloride) 100 mls @ 200 mls/hr IVPB DAILY [facility] Insulin Human NPH (Humulin N) 10 units SC ACB [facility] Last Admin: 04/06/17 06:33 Dose: Not Given Insulin Human NPH (Humulin N) 10 units SC DAILY@1745 [facility] Last Admin: 04/06/17 17:46 Dose: 10 units Insulin Human Regular (Humulin R High) 0 units SC ACHS [facility] PRN Reason: Protocol Last Admin: 04/06/17 17:34 Dose: 2 units Lorazepam (Ativan) 0.25 mg PO TID [facility] PRN Reason: Protocol Last Admin: 04/06/17 17:34 Dose: 0.25 mg Metoprolol Tartrate (Lopressor) 25 mg PO 0800,1800 [facility] Last Admin: 04/06/17 17:36 Dose: 25 mg Oxycodone HCl (Oxycodone Immediate Release Tab) 10 mg PO Q8H PRN PRN Reason: Pain, severe (8-10) - Labs Labs: 04/06/17 15:32 04/06/17 07:00 - Constitutional Appears: Non-toxic, No Acute Distress - Head Exam Head Exam: NORMAL INSPECTION - ENT Exam ENT Exam: Mucous Membranes Moist - Neck Exam Neck Exam: absent: Meningismus - Respiratory Exam Respiratory Exam: Decreased Breath Sounds - Cardiovascular Exam Cardiovascular Exam: +S1, +S2 - GI/Abdominal Exam GI & Abdominal Exam: Soft. absent: Tenderness Assessment and Plan - Assessment and Plan (Free Text) Plan: Assessment Sepsis due to left sided healthcare-associated pneumonia and probable superinfection of the breast cancer area, clinically improving Breast cancer obesity with BMI 30 Plan continue Vancomycin, Zosyn and Doxycycline (day 7) to complete a 4-7 day course will continue to follow clinically
[2017-04-06] MEDS: oxyCODONE 10 mg Immediate Release Tab PO PRN (21:18)
--- NOTE | 2017-04-06 23:45 | CP.PCM.PN ---
Subjective - Date & Time of Evaluation Date of Evaluation: 04/06/17 Time of Evaluation: 09:00 - Subjective Subjective: Pt s/e bedside. More fatigued today than yesterday - breathing treatment given , H/H rpt'd and no significant change. No further complaints Objective - Vital Signs/Intake and Output Vital Signs (last 24 hours): Temp Pulse Resp BP Pulse Ox 98.2 F 84 18 121/62 91 L 04/06/17 16:09 04/06/17 17:36 04/06/17 16:09 04/06/17 17:36 04/05/17 16:18 - Medications Medications: Current Medications Acetaminophen (Tylenol 325mg Tab) 650 mg PO Q4H PRN PRN Reason: Pain, moderate (4-7) Albuterol/Ipratropium (Duoneb 3 Mg/0.5 Mg (3 Ml) Ud) 3 ml IH [id number] [facility] Last Admin: 04/06/17 21:49 Dose: 3 ml Albuterol/Ipratropium (Duoneb 3 Mg/0.5 Mg (3 Ml) Ud) 3 ml IH Q2H PRN PRN Reason: Shortness of Breath Ascorbic Acid (Vitamin C 500 Mg Tab) 500 mg PO DAILY [facility] Benzocaine/Menthol (Cepacol Sore Throat) 1 reno MT Q2H PRN PRN Reason: Sore Throat Benzonatate (Tessalon Perles) 100 mg PO BID [facility] Last Admin: 04/06/17 17:36 Dose: 100 mg Budesonide (Pulmicort Respules) 0.5 mg IH DAILY [facility] Last Admin: 04/06/17 07:37 Dose: 0.5 mg Calcium/Vitamin D (Oscal-D 250 Mg-125 Units Tab) 2 tab PO DAILY [facility] Last Admin: 04/06/17 09:06 Dose: 2 tab Docusate Sodium (Colace) 100 mg PO DAILY [facility] Last Admin: 04/06/17 14:36 Dose: 100 mg Fentanyl (Duragesic) 1 patch TD Q72H [facility] Last Admin: 04/06/17 13:49 Dose: 1 patch Fluconazole (Diflucan) 100 mg PO DAILY [facility] PRN Reason: Protocol Last Admin: 04/06/17 14:46 Dose: 100 mg Doxycycline Hyclate 100 mg/ (Sodium Chloride) 100 mls @ 100 mls/hr IVPB Q12 [facility] PRN Reason: Protocol Last Admin: 04/06/17 22:52 Dose: 100 mls/hr Vancomycin HCl (Vancomycin 1gm) 1 gm in 250 mls @ 167 mls/hr IVPB Q12H [facility] PRN Reason: Protocol Last Admin: 04/06/17 20:17 Dose: 167 mls/hr Piperacillin Sod/Tazobactam Sod (Zosyn 3.375 In Ns 100ml) 100 mls @ 200 mls/hr IVPB Q6 [facility] PRN Reason: Protocol Stop: 04/09/17 00:01 Last Admin: 04/06/17 17:37 Dose: 200 mls/hr Methylprednisolone 500 mg/ (Sodium Chloride) 100 mls @ 200 mls/hr IVPB DAILY [facility] Insulin Human NPH (Humulin N) 10 units SC ACB [facility] Last Admin: 04/06/17 06:33 Dose: Not Given Insulin Human NPH (Humulin N) 10 units SC DAILY@1745 [facility] Last Admin: 04/06/17 17:46 Dose: 10 units Insulin Human Regular (Humulin R High) 0 units SC ACHS [facility] PRN Reason: Protocol Last Admin: 04/06/17 21:29 Dose: Not Given Lorazepam (Ativan) 0.25 mg PO TID [facility] PRN Reason: Protocol Last Admin: 04/06/17 17:34 Dose: 0.25 mg Metoprolol Tartrate (Lopressor) 25 mg PO 0800,1800 [facility] Last Admin: 04/06/17 17:36 Dose: 25 mg Oxycodone HCl (Oxycodone Immediate Release Tab) 10 mg PO Q8H PRN PRN Reason: Pain, severe (8-10) Last Admin: 04/06/17 21:18 Dose: 10 mg Thiamine HCl (Vitamin B1 Tab) 100 mg PO DAILY [facility] - Labs Labs: 04/06/17 15:32 04/06/17 07:00 - Additional Findings Additional findings: VS as above Constitutional: a&o x 4, nad Head and Neck: neck supple, no jvd, trachea midline, carotid midline, no cervical/head mass Eyes: vida, nonicteric sclera, eom intact ENT: auditory acuity grossly intact, throat not congested, no nasal deformity Cardio: rrr, no m/r/g, no carotid bruit, nml s1, s2 Chest: +severely infected Right breast with purulent drainage from one of many lesions. TTP. Wound was cleaned and re-dressed by myself. Pulm: no accessory muscle use, equal nml breath sounds bilaterally, ctab Abd: s/nt/nd, nbs x 4 q, no palpable masses Derm: no rashes, no ulcers, no lesions Extr: no edema, no cyanosis, no calf tenderness, no lesions, no varicosities Neuro: cn II-XII grossly intact, ue and le 5/5 muscle strength bilaterally, no los ue, le bilaterally and core Assessment and Plan - Assessment and Plan (Free Text) Assessment: 71 year old female with a PMH of stage 4 breast CA with metastases to bone and colon who presented to the [facility] with complaints of worsened pain on right breast mass with associated drainage and fever, now in TCU for deconditioning and IV ABx. Plan: 1. 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 Increased fentanyl patch to 25 04/06/17 2. Recurrent bronchitis - improved Pulmonology following, recs are appreciated Procal and influenza were negative Continue q6h and q2h PRN nebs but changed pulmicort to QD from Q12 to monitor if her cough may be due to this Cont benzonate and cepacol PRN 3. Hyperglycemia No noted hx of DM continues to have elevated fingersticks Pending HgbA1C, plan to transition to oral hypoglycemics per her request, see below Continue RISS high 4. Transaminitis Ordered abd US to evaluation AST and Alk phos, no ALT elevation, possible metastases in liver Hepatitis panel was negative 5. Pancytopenia Likely 2/2 breast CA Hem/Onc following No active bleeding Hemodynamically stable Continue to monitor 6. Hypovitaminosis D Continue supplementation 7. Hx arthritis Continue on pain regimen as above 8. Pseudohypocalcemia Velvet Ca is 8.88 from pseudohypocalcemia 9. Hypokalemia - repleted GI/DVT ppx: protonix/SCDs
[2017-04-07] MEDS: Piperacillin/Tazobact 3.375 gm 100 ML IVPB SCH ×3 (00:29→12:05)
[2017-04-07] MEDS: Albuterol-Ipratrop 3 mg / 0.5 (3 ml) UD IH SCH ×3 (02:34→13:02)
[2017-04-07] MEDS: Insulin Reg-HIGH-Coverage SC SCH ×4 (06:31→21:57)
[2017-04-07] MEDS: Insulin Human NPH 1 UNITS/0.01 ML SC SCH ×2 (06:32→17:55)
[2017-04-07] MEDS: methylPREDNISolone 500 MG in Sodium Chloride 0.9% 100 ML IVPB SCH (06:32)
[2017-04-07] MEDS: Budesonide 0.5 mg/2 ml Inhal Susp UD IH SCH (07:43)
[2017-04-07] MEDS: Vancomycin 1gm in NS 250ml 1 GM/250 ML BAG IVPB SCH (08:32)
[2017-04-07 09:06] LABS: ADD MANUAL DIFF? NO
[2017-04-07 09:15] LABS: BASO # 0.07 K/mm3 (0.0-2.0); BASO % 0.9 % (0.0-3.0); EOS # 0.1 (0.0-0.7); GRAN # 4.75 (1.4-6.5); GRAN % 61.7 % (50.0-68.0); HEMATOCRIT 30.2 % (36.0-48.0); LYMPH # 2.3 (1.2-3.4); LYMPH % 29.4 % (22.0-35.0); MEAN CORPUSCULAR HEMOGLOBIN 30.5 pg (25.0-35.0); MEAN CORPUSCULAR HGB CONC 32.1 g/dl (31.0-37.0); MONO # 0.5 (0.1-0.6); PLATELET COUNT 148 10^3/uL (120.0-450.0); RED CELL DISTRIBUTION WIDTH 17.9 % (11.5-14.5); WHITE BLOOD COUNT 7.7 10^3/ul (4.5-11.0)
[2017-04-07] MEDS ORDERED: methylPREDNISolone 500 MG in Sodium Chloride 0.9% 100 ML IVPB SCH (10:00)
[2017-04-07] MEDS: LORazepam Half Tablet 0.25 MG PO SCH ×3 (10:39→17:53)
[2017-04-07] MEDS: Calcium-Vit D 250 mg-125 Units Tab UD PO SCH (10:40)
--- NOTE | 2017-04-07 13:39 | CP.PCM.PN ---
Subjective - Date & Time of Evaluation Date of Evaluation: 04/07/17 Time of Evaluation: 12:00 - Subjective Subjective: Alert, states she is feeling much better, and that her pain is significantly decreased Objective - Vital Signs/Intake and Output Vital Signs (last 24 hours): Temp Pulse Resp BP Pulse Ox 98 F 94 H 18 139/78 95 04/07/17 11:30 04/07/17 11:30 04/07/17 11:30 04/07/17 11:30 04/07/17 11:30 - Medications Medications: Current Medications Acetaminophen (Tylenol 325mg Tab) 650 mg PO Q4H PRN PRN Reason: Pain, moderate (4-7) Albuterol/Ipratropium (Duoneb 3 Mg/0.5 Mg (3 Ml) Ud) 3 ml IH [id number] [facility] Last Admin: 04/07/17 13:02 Dose: 3 ml Albuterol/Ipratropium (Duoneb 3 Mg/0.5 Mg (3 Ml) Ud) 3 ml IH Q2H PRN PRN Reason: Shortness of Breath Ascorbic Acid (Vitamin C 500 Mg Tab) 500 mg PO DAILY [facility] Last Admin: 04/07/17 10:41 Dose: 500 mg Benzocaine/Menthol (Cepacol Sore Throat) 1 reno MT Q2H PRN PRN Reason: Sore Throat Benzonatate (Tessalon Perles) 100 mg PO BID [facility] Last Admin: 04/07/17 10:40 Dose: 100 mg Budesonide (Pulmicort Respules) 0.5 mg IH DAILY [facility] Last Admin: 04/07/17 07:43 Dose: 0.5 mg Calcium/Vitamin D (Oscal-D 250 Mg-125 Units Tab) 2 tab PO DAILY [facility] Last Admin: 04/07/17 10:40 Dose: 2 tab Docusate Sodium (Colace) 100 mg PO DAILY [facility] Last Admin: 04/07/17 10:39 Dose: Not Given Fentanyl (Duragesic) 1 patch TD Q72H [facility] Last Admin: 04/06/17 13:49 Dose: 1 patch Fluconazole (Diflucan) 100 mg PO DAILY [facility] PRN Reason: Protocol Last Admin: 04/07/17 10:39 Dose: 100 mg Vancomycin HCl (Vancomycin 1gm) 1 gm in 250 mls @ 167 mls/hr IVPB Q12H [facility] PRN Reason: Protocol Last Admin: 04/07/17 08:32 Dose: 167 mls/hr Piperacillin Sod/Tazobactam Sod (Zosyn 3.375 In Ns 100ml) 100 mls @ 200 mls/hr IVPB Q6 [facility] PRN Reason: Protocol Stop: 04/09/17 00:01 Last Admin: 04/07/17 12:05 Dose: 200 mls/hr Doxycycline Hyclate 100 mg/ (Sodium Chloride) 100 mls @ 100 mls/hr IVPB 0600, 1800 [facility] PRN Reason: Protocol Last Admin: 04/07/17 05:05 Dose: 100 mls/hr Methylprednisolone 500 mg/ (Sodium Chloride) 100 mls @ 200 mls/hr IVPB 0600 [facility] Last Admin: 04/07/17 06:32 Dose: 200 mls/hr Insulin Human NPH (Humulin N) 10 units SC ACB [facility] Last Admin: 04/07/17 06:32 Dose: 10 units Insulin Human NPH (Humulin N) 10 units SC DAILY@1745 [facility] Last Admin: 04/06/17 17:46 Dose: 10 units Insulin Human Regular (Humulin R High) 0 units SC ACHS [facility] PRN Reason: Protocol Last Admin: 04/07/17 12:57 Dose: 7 units Lorazepam (Ativan) 0.25 mg PO TID [facility] PRN Reason: Protocol Last Admin: 04/07/17 13:06 Dose: 0.25 mg Metoprolol Tartrate (Lopressor) 25 mg PO 0800,1800 [facility] Last Admin: 04/07/17 08:30 Dose: 25 mg Oxycodone HCl (Oxycodone Immediate Release Tab) 10 mg PO Q8H PRN PRN Reason: Pain, severe (8-10) Last Admin: 04/06/17 21:18 Dose: 10 mg Thiamine HCl (Vitamin B1 Tab) 100 mg PO DAILY [facility] Last Admin: 04/07/17 10:40 Dose: 100 mg - Labs Labs: 04/07/17 09:00 04/06/17 07:00 - Constitutional Appears: No Acute Distress, Chronically Ill - Eye Exam Eye Exam: Normal appearance, PERRL - ENT Exam ENT Exam: Mucous Membranes Moist - Respiratory Exam Respiratory Exam: Decreased Breath Sounds, NORMAL BREATHING PATTERN - Cardiovascular Exam Cardiovascular Exam: REGULAR RHYTHM, +S1, +S2 - GI/Abdominal Exam GI & Abdominal Exam: Soft, Normal Bowel Sounds - Extremities Exam Additional comments: 1 + bilateral pedal edema - Skin Skin Exam: Dry, Pallor Assessment and Plan - Assessment and Plan (Free Text) Assessment: 71 year old female with history of metastatic breast cancer, infected breast mass, pneumonia who is currently in TRCU. She receiving antibiotics for CAP and physical therapy. Patient states she is feeling much better today. Appetite is somewhat better than the past few days. Encouraged small frequent feedings and po fluids as tolerated. Plan: All medications ,reports reviewed. No new recommendations. Will continue to discuss future goals of care and advance care planning with patient and family
[2017-04-07] MEDS ORDERED: Iron Sucrose 100 mg/5 ml Inj IVP ONE (16:39)
--- NOTE | 2017-04-07 17:38 | CP.PCM.PN ---
Subjective - Date & Time of Evaluation Date of Evaluation: 04/07/17 Time of Evaluation: 11:40 - Subjective Subjective: Comfortable in bed, not in distress, afebrile. Objective - Vital Signs/Intake and Output Vital Signs (last 24 hours): Temp Pulse Resp BP Pulse Ox 97.7 F 70 20 140/72 100 04/07/17 16:17 04/07/17 16:17 04/07/17 16:17 04/07/17 16:17 04/07/17 16:17 - Medications Medications: Current Medications Acetaminophen (Tylenol 325mg Tab) 650 mg PO Q4H PRN PRN Reason: Pain, moderate (4-7) Albuterol/Ipratropium (Duoneb 3 Mg/0.5 Mg (3 Ml) Ud) 3 ml IH [id number] [facility] Last Admin: 04/07/17 13:02 Dose: 3 ml Albuterol/Ipratropium (Duoneb 3 Mg/0.5 Mg (3 Ml) Ud) 3 ml IH Q2H PRN PRN Reason: Shortness of Breath Ascorbic Acid (Vitamin C 500 Mg Tab) 500 mg PO DAILY [facility] Last Admin: 04/07/17 10:41 Dose: 500 mg Benzocaine/Menthol (Cepacol Sore Throat) 1 reno MT Q2H PRN PRN Reason: Sore Throat Benzonatate (Tessalon Perles) 100 mg PO BID [facility] Last Admin: 04/07/17 10:40 Dose: 100 mg Budesonide (Pulmicort Respules) 0.5 mg IH DAILY [facility] Last Admin: 04/07/17 07:43 Dose: 0.5 mg Calcium/Vitamin D (Oscal-D 250 Mg-125 Units Tab) 2 tab PO DAILY [facility] Last Admin: 04/07/17 10:40 Dose: 2 tab Docusate Sodium (Colace) 100 mg PO DAILY [facility] Last Admin: 04/07/17 10:39 Dose: Not Given Fentanyl (Duragesic) 1 patch TD Q72H [facility] Last Admin: 04/06/17 13:49 Dose: 1 patch Fluconazole (Diflucan) 100 mg PO DAILY [facility] PRN Reason: Protocol Last Admin: 04/07/17 10:39 Dose: 100 mg Vancomycin HCl (Vancomycin 1gm) 1 gm in 250 mls @ 167 mls/hr IVPB Q12H [facility] PRN Reason: Protocol Last Admin: 04/07/17 08:32 Dose: 167 mls/hr Piperacillin Sod/Tazobactam Sod (Zosyn 3.375 In Ns 100ml) 100 mls @ 200 mls/hr IVPB Q6 [facility] PRN Reason: Protocol Stop: 04/09/17 00:01 Last Admin: 04/07/17 12:05 Dose: 200 mls/hr Doxycycline Hyclate 100 mg/ (Sodium Chloride) 100 mls @ 100 mls/hr IVPB 0600, 1800 [facility] PRN Reason: Protocol Last Admin: 04/07/17 05:05 Dose: 100 mls/hr Methylprednisolone 500 mg/ (Sodium Chloride) 100 mls @ 200 mls/hr IVPB 0600 [facility] Last Admin: 04/07/17 06:32 Dose: 200 mls/hr Iron Sucrose 100 mg/ Sodium (Chloride) 105 mls @ 210 mls/hr IVPB ONCE ONE Stop: 04/07/17 18:14 Insulin Human NPH (Humulin N) 10 units SC ACB [facility] Last Admin: 04/07/17 06:32 Dose: 10 units Insulin Human NPH (Humulin N) 10 units SC DAILY@1745 [facility] Last Admin: 04/06/17 17:46 Dose: 10 units Insulin Human Regular (Humulin R High) 0 units SC ACHS [facility] PRN Reason: Protocol Last Admin: 04/07/17 12:57 Dose: 7 units Lorazepam (Ativan) 0.25 mg PO TID [facility] PRN Reason: Protocol Last Admin: 04/07/17 13:06 Dose: 0.25 mg Metoprolol Tartrate (Lopressor) 25 mg PO 0800,1800 [facility] Last Admin: 04/07/17 08:30 Dose: 25 mg Oxycodone HCl (Oxycodone Immediate Release Tab) 10 mg PO Q8H PRN PRN Reason: Pain, severe (8-10) Last Admin: 04/06/17 21:18 Dose: 10 mg Thiamine HCl (Vitamin B1 Tab) 100 mg PO DAILY [facility] Last Admin: 04/07/17 10:40 Dose: 100 mg - Labs Labs: 04/07/17 09:00 04/06/17 07:00 - Constitutional Appears: Non-toxic, No Acute Distress - Head Exam Head Exam: NORMAL INSPECTION - ENT Exam ENT Exam: Mucous Membranes Moist - Neck Exam Neck Exam: absent: Lymphadenopathy, Meningismus - Respiratory Exam Respiratory Exam: Decreased Breath Sounds - Cardiovascular Exam Cardiovascular Exam: +S1, +S2 - GI/Abdominal Exam GI & Abdominal Exam: Soft. absent: Tenderness Assessment and Plan - Assessment and Plan (Free Text) Plan: Assessment Sepsis due to left sided healthcare-associated pneumonia and probable superinfection of the breast cancer area, clinically improving Breast cancer obesity with BMI 30 Plan continue Vancomycin, Zosyn and Doxycycline (day 8) - will d/c antibiotics today will continue to follow clinically
--- NOTE | 2017-04-07 19:39 | CP.PCM.CON ---
History of Present Illness - History of Present Illness History of Present Illness: Oncology Consult Referred by Dr. Stephens for h/o breast cancer HPI- Ms Adi is 71 y/o F who is well known to me from outpatient. She has stage IV breast cancer, ER/[place] + and Her-2 negative that was diagnosed around January 2016. She has been treated with multiple lines of hormonal treatment but recently her breast cancer was found to have progressed. She was admitted to [facility] for pain management and right breast mass infection with pus drainage. She was treated with IV antibiotics and sent to rehab. She feels well today, her pain is controlled. No fever, chills. Imaging reviewed. Family and Social history reviewed. Review of Systems - Review of Systems All systems: reviewed and no additional remarkable complaints except Review of Systems: as in HPI Past Patient History - Infectious Disease Hx of Infectious Diseases: None - Tetanus Immunizations Tetanus Immunization: Unknown - Past Social History Smoking Status: Former Smoker - CARDIAC Hx Cardiac Disorders: No Hx Angina: No Hx Cardia Arrhythmia: No Hx Circulatory Problems: No Hx Congestive Heart Failure: No Hx Heart Murmur: No Hx Heart Transplant: No Hx Hypertension: No Hx Internal Defibrillator: No Hx Mitral Valve Prolapse: No Hx Pacemaker: No Hx Peripheral Edema: No Hx Peripheral Vascular Disease: No - PULMONARY Hx Respiratory Disorders: Yes (SMOKED CIGARETTES QUIT 1981 PPD) Hx Asthma: No Hx Bronchitis: No Hx Chronic Obstructive Pulmonary Disease (COPD): No Hx Emphysema: No Hx Pneumonia: No Hx Respiratory Aspiration: No Hx Respiratory Tract Infection: No Hx Sleep Apnea: No Hx Tuberculosis: No - NEUROLOGICAL Hx Neurological Disorder: No Hx Alzheimer's Disease: No HX Cerebrovascular Accident: No Hx Dementia: No Hx Dizziness: No Hx Meningitis: No Hx Migraine: No Hx Parkinson's Disease: No Hx Seizures: No Hx Transient Ischemic Attacks (TIA): No - HEENT Hx HEENT Problems: Yes Hx Blind: No Hx Cataracts: Yes (h/o cataract surgery) Hx Deafness: No Hx Difficulty Chewing: No Hx Epistaxis: No Hx Glaucoma: No Hx Macular Degeneration: No - RENAL Hx Chronic Kidney Disease: No Hx Dialysis: No Hx Kidney Stones: No Hx Neurogenic Bladder: No Hx Pyelonephritis: No Hx Renal (Kidney) Cancer: No Hx Renal Failure: No - ENDOCRINE/METABOLIC Hx Endocrine Disorders: No Hx Adrenal Cancer: No Hx Diabetes Insipidus: No Hx Diabetes Mellitus Type 1: No Hx Diabetes Mellitus Type 2: No Hx Hyperthyroidism: No Hx Hypothyroidism: No Hx Systemic Lupus Erythematosus: No - HEMATOLOGICAL/ONCOLOGICAL Hx Blood Disorders: Yes Hx AIDS: No Hx Anemia: No Hx Cancer: Yes (breast cancer WITH METS,COLON AND BONE) Hx Chemotherapy: Yes (PILLS STARTED FEBRUARY 2017) Hx Cirrhosis: No Hx Hemophilia: No Hx Hepatitis A: No Hx Hepatitis B: No Hx Hepatitis C: No Hx Metastesis: No Hx Shingles: No Hx Sickle Cell Disease: No Hx Unexplained Bleeding: No Other/Comment: RADIATION - INTEGUMENTARY Hx Dermatological Problems: Yes Hx Basil Cell: No Hx Eczema: No Hx Melanoma: No Hx Psoriasis: No Hx Squamous Cell: No Other/Comment: 03-30-17 CODE SEPSIS-RIGHT BREAST INFECTION,MID LOWER BACK DIMPLING OF SKIN,DRY SCABBED AREA.LEFT 0.3 CM WOUND TO LABIA MAJORA.BILATERAL GROIN AREA DARKENED SKIN DISCOLORATION - MUSCULOSKELETAL/RHEUMATOLOGICAL Hx Falls: No - GASTROINTESTINAL Hx Gastrointestinal Disorders: Yes (CHOLECYSTECTOMY,CONSTIPATION) - GENITOURINARY/GYNECOLOGICAL Hx Reproductive Disorders: No - PSYCHIATRIC Hx Psychophysiologic Disorder: Yes Hx Anxiety: Yes Hx Bipolar Disorder: No Hx Depression: No Hx Emotional Abuse: No Hx Hallucinations: No Hx Panic Symptoms: No Hx Post Traumatic Stress Disorder: No Hx Psychosis: No Hx Physical Abuse: No Hx Schizophrenia: No Hx Sexual Abuse: No Hx Substance Use: No - SURGICAL HISTORY Hx Surgeries: Yes Hx Amputation: No Hx Appendectomy: No Hx Cardiac Catheterization: No Hx Cholecystectomy: Yes Hx Coronary Stent: No Hx Gastric Bypass Surgery: No Hx Hysterectomy: Yes Hx Joint Replacement: No Hx Kidney Transplant: No Hx Liver Transplant: No Hx Mastectomy: No Hx Musculoskeletal Surgery: No Hx Open Heart Surgery: No Hx Orthopedic Surgery: No Hx Splenectomy: No Hx Valve Replacement: No - ANESTHESIA Hx Anesthesia: Yes Hx Anesthesia Reactions: No Meds Allergies/Adverse Reactions: Allergies Allergy/AdvReac Type Severity Reaction Status Date / Time No Known Allergies Allergy Verified 03/30/17 18:50 - Medications Medications: Current Medications Acetaminophen (Tylenol 325mg Tab) 650 mg PO Q4H PRN PRN Reason: Pain, moderate (4-7) Albuterol/Ipratropium (Duoneb 3 Mg/0.5 Mg (3 Ml) Ud) 3 ml IH [id number] [facility] Last Admin: 04/07/17 13:02 Dose: 3 ml Albuterol/Ipratropium (Duoneb 3 Mg/0.5 Mg (3 Ml) Ud) 3 ml IH Q2H PRN PRN Reason: Shortness of Breath Ascorbic Acid (Vitamin C 500 Mg Tab) 500 mg PO DAILY [facility] Last Admin: 04/07/17 10:41 Dose: 500 mg Benzocaine/Menthol (Cepacol Sore Throat) 1 reno MT Q2H PRN PRN Reason: Sore Throat Benzonatate (Tessalon Perles) 100 mg PO BID [facility] Last Admin: 04/07/17 17:58 Dose: 100 mg Budesonide (Pulmicort Respules) 0.5 mg IH DAILY [facility] Last Admin: 04/07/17 07:43 Dose: 0.5 mg Calcium/Vitamin D (Oscal-D 250 Mg-125 Units Tab) 2 tab PO DAILY [facility] Last Admin: 04/07/17 10:40 Dose: 2 tab Docusate Sodium (Colace) 100 mg PO DAILY [facility] Last Admin: 04/07/17 10:39 Dose: Not Given Fentanyl (Duragesic) 1 patch TD Q72H [facility] Last Admin: 04/06/17 13:49 Dose: 1 patch Fluconazole (Diflucan) 100 mg PO DAILY [facility] PRN Reason: Protocol Last Admin: 04/07/17 10:39 Dose: 100 mg Methylprednisolone 500 mg/ (Sodium Chloride) 100 mls @ 200 mls/hr IVPB 0600 [facility] Last Admin: 04/07/17 06:32 Dose: 200 mls/hr Insulin Human NPH (Humulin N) 10 units SC ACB [facility] Last Admin: 04/07/17 06:32 Dose: 10 units Insulin Human NPH (Humulin N) 10 units SC DAILY@1745 [facility] Last Admin: 04/07/17 17:55 Dose: 10 units Insulin Human Regular (Humulin R High) 0 units SC ACHS [facility] PRN Reason: Protocol Last Admin: 04/07/17 17:56 Dose: 4 units Lorazepam (Ativan) 0.25 mg PO TID [facility] PRN Reason: Protocol Metoprolol Tartrate (Lopressor) 25 mg PO 0800,1800 [facility] Last Admin: 04/07/17 17:58 Dose: 25 mg Oxycodone HCl (Oxycodone Immediate Release Tab) 10 mg PO Q8H PRN PRN Reason: Pain, severe (8-10) Last Admin: 04/06/17 21:18 Dose: 10 mg Thiamine HCl (Vitamin B1 Tab) 100 mg PO DAILY [facility] Last Admin: 04/07/17 10:40 Dose: 100 mg Physical Exam - Head Exam Head Exam: ATRAUMATIC, NORMAL INSPECTION - Eye Exam Eye Exam: EOMI, PERRL - ENT Exam ENT Exam: Mucous Membranes Moist - Respiratory Exam Respiratory Exam: Clear to Auscultation Bilateral - Cardiovascular Exam Cardiovascular Exam: REGULAR RHYTHM - GI/Abdominal Exam GI & Abdominal Exam: Normal Bowel Sounds, Soft. absent: Tenderness - Extremities Exam Extremities exam: Positive for: pedal edema - Neurological Exam Neurological exam: Alert, Oriented x3 Results - Vital Signs Recent Vital Signs: Last Vital Signs Temp 97.7 F 04/07/17 16:17 Pulse 70 04/07/17 17:58 Resp 20 04/07/17 16:17 BP 140/72 04/07/17 17:58 Pulse Ox 100 04/07/17 16:17 - Labs Result Diagrams: 04/07/17 09:00 04/06/17 07:00 Labs: Laboratory Results - last 24 hr 04/06/17 04/06/17 04/07/17 04:53 21:15 01:50 WBC RBC Hgb Hct MCV MCH MCHC RDW Plt Count MPV Gran % Lymph % (Auto) Kimble % (Auto) Eos % (Auto) Baso % (Auto) Gran # Lymph # Kimble # Eos # Baso # POC Glucose (mg/dL) 127 H 245 H Stool Occult Blood Positive H 04/07/17 04/07/17 09:00 11:28 WBC 7.7 D RBC 3.18 L Hgb 9.7 L Hct 30.2 L MCV 95.0 MCH 30.5 MCHC 32.1 RDW 17.9 H Plt Count 148 MPV 10.0 Gran % 61.7 Lymph % (Auto) 29.4 Kimble % (Auto) 7.0 H Eos % (Auto) 1.0 L Baso % (Auto) 0.9 Gran # 4.75 Lymph # 2.3 Kimble # 0.5 Eos # 0.1 Baso # 0.07 POC Glucose (mg/dL) 268 H Stool Occult Blood Assessment & Plan - Assessment and Plan (Free Text) Assessment: Stage IV breast cancer Her disease has progressed recently on hormonal treatment. I had a long discussion with patient and her daughter about future goals of care. They understand that her disease in incurable and has progressed. I recommended chemotherapy with Xeloda that will be started as outpatient after discharge. We are working with insurance to get that approved. Continue supportive care for now. Will continue to follow up with you. Thank you for the consult Man Henderson MD - Date & Time Date: 04/07/17 Time: 19:39
[2017-04-07] MEDS: oxyCODONE 10 mg Immediate Release Tab PO PRN (20:05)
[2017-04-07] MEDS ORDERED: LORazepam Half Tablet 0.25 MG PO STA (21:16)
[2017-04-07] MEDS ORDERED: Oxycodone/Acetaminophen 5/325 mg Tab PO ONE (23:38)
[2017-04-08] MEDS: Albuterol-Ipratrop 3 mg / 0.5 (3 ml) UD IH SCH ×5 (01:17→19:56)
[2017-04-08] MEDS: methylPREDNISolone 500 MG in Sodium Chloride 0.9% 100 ML IVPB SCH (05:39)
[2017-04-08] MEDS: oxyCODONE 10 mg Immediate Release Tab PO PRN ×3 (05:45→23:05)
[2017-04-08] MEDS: Insulin Reg-HIGH-Coverage SC SCH ×4 (06:58→22:49)
[2017-04-08] MEDS: Insulin Human NPH 1 UNITS/0.01 ML SC SCH ×2 (06:58→17:30)
--- NOTE | 2017-04-08 07:02 | CP.PCM.PN ---
Subjective - Date & Time of Evaluation Date of Evaluation: 04/08/17 Time of Evaluation: 07:02 - Subjective Subjective: Patient was seen at bedside. After repositioned by nurse , she was still in pain, was crying with pain, son requested something to calm her down. Has no complaints now. Medical record was reviewed. This 71 year old woman was admitted with generalized weakness and pain of 2 weeks duration. Has PMH of breast cancer with metastasis to bones,arthritis,backpain, pancytopenia, transaminitis,cholecystectomy, hystrectomy, tonsillectomy. Objective - Vital Signs/Intake and Output Vital Signs (last 24 hours): Temp Pulse Resp BP Pulse Ox 97.7 F 97 H 20 157/90 H 100 04/07/17 16:17 04/07/17 23:00 04/07/17 16:17 04/07/17 23:00 04/07/17 16:17 Intake and Output: 04/08/17 04/08/17 06:59 18:59 Output Total 400 Balance -400 - Medications Medications: Current Medications Acetaminophen (Tylenol 325mg Tab) 650 mg PO Q4H PRN PRN Reason: Pain, moderate (4-7) Albuterol/Ipratropium (Duoneb 3 Mg/0.5 Mg (3 Ml) Ud) 3 ml IH [id number] [facility] Last Admin: 04/08/17 01:19 Dose: Not Given Albuterol/Ipratropium (Duoneb 3 Mg/0.5 Mg (3 Ml) Ud) 3 ml IH Q2H PRN PRN Reason: Shortness of Breath Ascorbic Acid (Vitamin C 500 Mg Tab) 500 mg PO DAILY [facility] Last Admin: 04/07/17 10:41 Dose: 500 mg Benzocaine/Menthol (Cepacol Sore Throat) 1 reno MT Q2H PRN PRN Reason: Sore Throat Benzonatate (Tessalon Perles) 100 mg PO BID [facility] Last Admin: 04/07/17 17:58 Dose: 100 mg Budesonide (Pulmicort Respules) 0.5 mg IH DAILY [facility] Last Admin: 04/07/17 07:43 Dose: 0.5 mg Calcium/Vitamin D (Oscal-D 250 Mg-125 Units Tab) 2 tab PO DAILY [facility] Last Admin: 04/07/17 10:40 Dose: 2 tab Docusate Sodium (Colace) 100 mg PO DAILY [facility] Last Admin: 04/07/17 10:39 Dose: Not Given Fentanyl (Duragesic) 1 patch TD Q72H [facility] Last Admin: 04/06/17 13:49 Dose: 1 patch Fluconazole (Diflucan) 100 mg PO DAILY [facility] PRN Reason: Protocol Last Admin: 04/07/17 10:39 Dose: 100 mg Methylprednisolone 500 mg/ (Sodium Chloride) 100 mls @ 200 mls/hr IVPB 0600 [facility] Last Admin: 04/08/17 05:39 Dose: 200 mls/hr Insulin Human NPH (Humulin N) 10 units SC ACB [facility] Last Admin: 04/08/17 06:58 Dose: 10 units Insulin Human NPH (Humulin N) 10 units SC DAILY@1745 [facility] Last Admin: 04/07/17 17:55 Dose: 10 units Insulin Human Regular (Humulin R High) 0 units SC ACHS [facility] PRN Reason: Protocol Last Admin: 04/08/17 06:58 Dose: 4 units Metoprolol Tartrate (Lopressor) 25 mg PO 0800,1800 [facility] Last Admin: 04/07/17 17:58 Dose: 25 mg Oxycodone HCl (Oxycodone Immediate Release Tab) 10 mg PO Q8H PRN PRN Reason: Pain, severe (8-10) Last Admin: 04/08/17 05:45 Dose: 10 mg Thiamine HCl (Vitamin B1 Tab) 100 mg PO DAILY [facility] Last Admin: 04/07/17 10:40 Dose: 100 mg - Labs Labs: 04/07/17 09:00 04/06/17 07:00 - Constitutional Appears: Well, No Acute Distress - Head Exam Head Exam: ATRAUMATIC, NORMAL INSPECTION, NORMOCEPHALIC - Eye Exam Eye Exam: Normal appearance - ENT Exam ENT Exam: Normal External Ear Exam - Neck Exam Neck Exam: Normal Inspection - Respiratory Exam Respiratory Exam: NORMAL BREATHING PATTERN - Cardiovascular Exam Cardiovascular Exam: absent: JVD - GI/Abdominal Exam GI & Abdominal Exam: absent: Distended - Rectal Exam Rectal Exam: Deferred - Exam Additional comments: Deferred. - Extremities Exam Extremities Exam: Normal Inspection - Back Exam Back Exam: NORMAL INSPECTION - Neurological Exam Neurological Exam: Alert, Oriented x3 - Psychiatric Exam Psychiatric exam: Normal Affect, Normal Mood - Skin Skin Exam: Normal Color Assessment and Plan - Assessment and Plan (Free Text) Assessment: Bodypain. Breast cancer with metastasis. Back pain. Arthritis. Plan: Ativan 0.25 mg PO stat. Continue present management.
[2017-04-08] MEDS: Budesonide 0.5 mg/2 ml Inhal Susp UD IH SCH ×2 (07:23→19:56)
[2017-04-08] MEDS ORDERED: LORazepam Half Tablet 0.25 MG PO SCH (10:00)
[2017-04-08] MEDS: Calcium-Vit D 250 mg-125 Units Tab UD PO SCH (10:26)
--- NOTE | 2017-04-08 12:27 | CP.PCM.PN ---
Subjective - Date & Time of Evaluation Date of Evaluation: 04/08/17 Time of Evaluation: 11:00 - Subjective Subjective: Sitting up in chair. Appetite is better. No acute issues. Objective - Vital Signs/Intake and Output Vital Signs (last 24 hours): Temp Pulse Resp BP Pulse Ox 97.7 F 91 H 18 142/81 96 04/08/17 09:14 04/08/17 09:14 04/08/17 09:14 04/08/17 09:14 04/08/17 09:14 Intake and Output: 04/08/17 04/08/17 06:59 18:59 Output Total 400 Balance -400 - Medications Medications: Current Medications Acetaminophen (Tylenol 325mg Tab) 650 mg PO Q4H PRN PRN Reason: Pain, moderate (4-7) Albuterol/Ipratropium (Duoneb 3 Mg/0.5 Mg (3 Ml) Ud) 3 ml IH [id number] [facility] Last Admin: 04/08/17 07:22 Dose: 3 ml Albuterol/Ipratropium (Duoneb 3 Mg/0.5 Mg (3 Ml) Ud) 3 ml IH Q2H PRN PRN Reason: Shortness of Breath Ascorbic Acid (Vitamin C 500 Mg Tab) 500 mg PO DAILY [facility] Last Admin: 04/08/17 10:27 Dose: 500 mg Benzocaine/Menthol (Cepacol Sore Throat) 1 reno MT Q2H PRN PRN Reason: Sore Throat Benzonatate (Tessalon Perles) 100 mg PO BID [facility] Last Admin: 04/08/17 10:26 Dose: 100 mg Budesonide (Pulmicort Respules) 0.5 mg IH DAILY [facility] Last Admin: 04/08/17 07:23 Dose: 0.5 mg Calcium/Vitamin D (Oscal-D 250 Mg-125 Units Tab) 2 tab PO DAILY [facility] Last Admin: 04/08/17 10:26 Dose: 2 tab Docusate Sodium (Colace) 100 mg PO DAILY [facility] Last Admin: 04/08/17 11:36 Dose: Not Given Fentanyl (Duragesic) 1 patch TD Q72H [facility] Last Admin: 04/06/17 13:49 Dose: 1 patch Fluconazole (Diflucan) 100 mg PO DAILY [facility] PRN Reason: Protocol Last Admin: 04/08/17 10:25 Dose: 100 mg Methylprednisolone 500 mg/ (Sodium Chloride) 100 mls @ 200 mls/hr IVPB 0600 [facility] Last Admin: 04/08/17 05:39 Dose: 200 mls/hr Insulin Human NPH (Humulin N) 10 units SC ACB [facility] Last Admin: 04/08/17 06:58 Dose: 10 units Insulin Human NPH (Humulin N) 10 units SC DAILY@1745 [facility] Last Admin: 04/07/17 17:55 Dose: 10 units Insulin Human Regular (Humulin R High) 0 units SC ACHS [facility] PRN Reason: Protocol Last Admin: 04/08/17 12:17 Dose: 4 units Lorazepam (Ativan) 0.25 mg PO HS [facility] PRN Reason: Protocol Metoprolol Tartrate (Lopressor) 25 mg PO 0800,1800 [facility] Last Admin: 04/08/17 08:19 Dose: 25 mg Oxycodone HCl (Oxycodone Immediate Release Tab) 10 mg PO Q8H PRN PRN Reason: Pain, severe (8-10) Last Admin: 04/08/17 05:45 Dose: 10 mg Thiamine HCl (Vitamin B1 Tab) 100 mg PO DAILY [facility] Last Admin: 04/08/17 10:27 Dose: 100 mg - Labs Labs: 04/07/17 09:00 04/06/17 07:00 - Constitutional Appears: No Acute Distress - Eye Exam Eye Exam: Normal appearance, PERRL - ENT Exam ENT Exam: Mucous Membranes Moist - Respiratory Exam Respiratory Exam: Decreased Breath Sounds, Wheezes, NORMAL BREATHING PATTERN - Cardiovascular Exam Cardiovascular Exam: REGULAR RHYTHM, +S1, +S2 - GI/Abdominal Exam GI & Abdominal Exam: Soft, Normal Bowel Sounds - Extremities Exam Extremities Exam: Pedal Edema - Skin Skin Exam: Dry, Pallor Assessment and Plan - Assessment and Plan (Free Text) Assessment: 71 year old female with history of metastatic breast cancer who is admitted to [facility] with CAP receiving antibiotic therapy, fungating breast mass, deconditioning. The patient is alert, although somewhat withdrawn today.Denies pain. Patients daughter at bedside. Daughter reports that patient was in pain last evening. Daughter also reports that patient was extremely anxious and had a hard time settling down for most of the evening. Her symptoms subsided after receiving Ativan and Oxycodone/acetaminophen. Daughter, patient, Jnaeth Frye and I had a discussion with patient and daughter about future goals of care. Family asking for information about hospice services. Differences between hospice and traditional medical services explained in detail. Questions answered. Patient states she wants to be kept comfortable and does not want to be a burden to family. Family wants to consider options.Psychosocial support given. Times spent in goals of care discussion, 45 minutes Plan: Ativan 0.25mg po hs. Will provide palliative support and assist family in establishing future foals of care
--- NOTE | 2017-04-08 14:12 | PN ---
DATE: SUBJECTIVE: Katerin is resting comfortably in intensive care unit. She is doing well with the therapy. She is walking with a walker. She is getting IV antibiotics for the right breast infection. She is comfortable. No acute distress. She is in good spirits. She understands what is going on with the breast. She has sepsis due to left-sided health care associated pneumonia, also left breast infection. She has breast cancer with metastasis. She is on IV antibiotics. MEDICATIONS: Cepacol, Colace, Diflucan, DuoNeb, Duragesic, insulin, Lopressor, methylprednisolone IV, calcium, oxycodone, Pulmicort, Tessalon Perles, Tylenol, vitamin B1, and vitamin C. PHYSICAL EXAMINATION VITAL SIGNS: Temperature of 97.7, pulse of 97, blood pressure of 140/72, respiratory rate of 20, and 100% O2 saturation on nasal cannula. HEENT: Head is atraumatic and normocephalic. Throat is moist. NECK: Supple. HEART: Regular rate. LUNGS: Decreased breath sounds bilaterally and clear to auscultation. ABDOMEN: Soft, morbidly obese, and nontender. EXTREMITIES: Trace edema if any. LABORATORY DATA: She has white count of 7.7, hemoglobin of 9.7, and hematocrit of 30.1 with platelets 148. Sodium is 136, potassium is 3.6, BUN is 6, and creatinine is 0.5. GFR is greater than 60. Blood sugar was 268 on insulin coverage, calcium of 7.8, phosphorous of 2.6, and magnesium of 1.9. Total bilirubin is 0.8, AST is 221, ALT is 34, alkaline phosphatase is 323, and total protein is 5.4. ASSESSMENT AND PLAN: She is being seen by oncology, infectious disease, and palliative care. She wants to go home and continue outpatient treatment with oncology, that is her plan. I believe they are going to continue chemotherapy with Xeloda on outpatient after discharge. We will continue aggressive treatment and care. Continue physical therapy. Check labs tomorrow, encouraged and answered many questions from Katerin. Christian Stephens DO
--- NOTE | 2017-04-08 20:03 | CP.PCM.PN ---
Subjective - Date & Time of Evaluation Date of Evaluation: 04/08/17 Time of Evaluation: 11:30 - Subjective Subjective: Comfortable, no distress, breathing well, no fevers. Objective - Vital Signs/Intake and Output Vital Signs (last 24 hours): Temp Pulse Resp BP Pulse Ox 97.7 F 91 H 18 142/81 96 04/08/17 09:14 04/08/17 09:14 04/08/17 09:14 04/08/17 09:14 04/08/17 09:14 Intake and Output: 04/08/17 04/08/17 06:59 18:59 Output Total 400 Balance -400 - Medications Medications: Current Medications Acetaminophen (Tylenol 325mg Tab) 650 mg PO Q4H PRN PRN Reason: Pain, moderate (4-7) Albuterol/Ipratropium (Duoneb 3 Mg/0.5 Mg (3 Ml) Ud) 3 ml IH [id number] [facility] Last Admin: 04/08/17 07:22 Dose: 3 ml Albuterol/Ipratropium (Duoneb 3 Mg/0.5 Mg (3 Ml) Ud) 3 ml IH Q2H PRN PRN Reason: Shortness of Breath Ascorbic Acid (Vitamin C 500 Mg Tab) 500 mg PO DAILY [facility] Last Admin: 04/07/17 10:41 Dose: 500 mg Benzocaine/Menthol (Cepacol Sore Throat) 1 reno MT Q2H PRN PRN Reason: Sore Throat Benzonatate (Tessalon Perles) 100 mg PO BID [facility] Last Admin: 04/07/17 17:58 Dose: 100 mg Budesonide (Pulmicort Respules) 0.5 mg IH DAILY [facility] Last Admin: 04/08/17 07:23 Dose: 0.5 mg Calcium/Vitamin D (Oscal-D 250 Mg-125 Units Tab) 2 tab PO DAILY [facility] Last Admin: 04/07/17 10:40 Dose: 2 tab Docusate Sodium (Colace) 100 mg PO DAILY [facility] Last Admin: 04/07/17 10:39 Dose: Not Given Fentanyl (Duragesic) 1 patch TD Q72H [facility] Last Admin: 04/06/17 13:49 Dose: 1 patch Fluconazole (Diflucan) 100 mg PO DAILY [facility] PRN Reason: Protocol Last Admin: 04/07/17 10:39 Dose: 100 mg Methylprednisolone 500 mg/ (Sodium Chloride) 100 mls @ 200 mls/hr IVPB 0600 [facility] Last Admin: 04/08/17 05:39 Dose: 200 mls/hr Insulin Human NPH (Humulin N) 10 units SC ACB [facility] Last Admin: 04/08/17 06:58 Dose: 10 units Insulin Human NPH (Humulin N) 10 units SC DAILY@1745 [facility] Last Admin: 04/07/17 17:55 Dose: 10 units Insulin Human Regular (Humulin R High) 0 units SC ACHS [facility] PRN Reason: Protocol Last Admin: 04/08/17 06:58 Dose: 4 units Metoprolol Tartrate (Lopressor) 25 mg PO 0800,1800 [facility] Last Admin: 04/08/17 08:19 Dose: 25 mg Oxycodone HCl (Oxycodone Immediate Release Tab) 10 mg PO Q8H PRN PRN Reason: Pain, severe (8-10) Last Admin: 04/08/17 05:45 Dose: 10 mg Thiamine HCl (Vitamin B1 Tab) 100 mg PO DAILY [facility] Last Admin: 04/07/17 10:40 Dose: 100 mg - Labs Labs: 04/07/17 09:00 04/06/17 07:00 - Constitutional Appears: Non-toxic, No Acute Distress - Head Exam Head Exam: NORMAL INSPECTION - ENT Exam ENT Exam: Mucous Membranes Moist - Neck Exam Neck Exam: absent: Meningismus - Respiratory Exam Respiratory Exam: Decreased Breath Sounds - Cardiovascular Exam Cardiovascular Exam: +S1, +S2 - GI/Abdominal Exam GI & Abdominal Exam: Soft. absent: Tenderness Assessment and Plan - Assessment and Plan (Free Text) Plan: Assessment S/P Sepsis due to left sided healthcare-associated pneumonia and probable superinfection of the breast cancer area, clinically improved and S/P treatment Breast cancer obesity with BMI 30 Plan completed course of Vancomycin, Zosyn and Doxycycline - will continue to monitor off antibiotics since she is at risk for nosocomial infections
[2017-04-08] MEDS: LORazepam Half Tablet 0.25 MG PO SCH (21:35)
[2017-04-09] MEDS: Albuterol-Ipratrop 3 mg / 0.5 (3 ml) UD IH SCH ×4 (01:30→20:00)
[2017-04-09] MEDS: methylPREDNISolone 500 MG in Sodium Chloride 0.9% 100 ML IVPB SCH (06:19)
[2017-04-09] MEDS: oxyCODONE 10 mg Immediate Release Tab PO PRN ×2 (06:26→20:33)
[2017-04-09] MEDS: Insulin Reg-HIGH-Coverage SC SCH ×4 (06:29→21:47)
[2017-04-09] MEDS: Insulin Human NPH 1 UNITS/0.01 ML SC SCH ×2 (06:30→17:50)
[2017-04-09 07:32] LABS: ALKALINE PHOSPHATASE 842 U/L (38-133); ALT/SGPT 56 U/L (7-56); AST/SGOT 374 U/L (15-39); BILIRUBIN,TOTAL 0.6 mg/dL (0.2-1.3); BLOOD UREA NITROGEN 20 mg/dL (7-21); CALCIUM 8.6 mg/dL (8.4-10.5); CARBON DIOXIDE 28 mmol/L (21-33); CHLORIDE 101 mmol/L (98-107); GFR AFRICAN-AMERICAN > 60; GLUCOSE,RANDOM 229 mg/dL (70-110); POTASSIUM 3.7 mmol/L (3.6-5.0); SODIUM 140 mmol/L (132-148); TOTAL PROTEIN 5.9 g/dL (5.8-8.3)
[2017-04-09 07:33] LABS: HEMATOCRIT 25.9 % (36.0-48.0); MEAN CELL VOLUME 94.9 fl (80.0-105.0); MEAN CORPUSCULAR HEMOGLOBIN 30.8 pg (25.0-35.0); MEAN CORPUSCULAR HGB CONC 32.4 g/dl (31.0-37.0); MEAN PLATELET VOLUME 10.1 fl (7.0-11.0); RED CELL DISTRIBUTION WIDTH 18.4 % (11.5-14.5); WHITE BLOOD COUNT 9.2 10^3/ul (4.5-11.0)
[2017-04-09] MEDS: Budesonide 0.5 mg/2 ml Inhal Susp UD IH SCH (08:05)
[2017-04-09] MEDS: Calcium-Vit D 250 mg-125 Units Tab UD PO SCH (11:41)
--- NOTE | 2017-04-09 11:44 | PN ---
DATE: 04/09/2017 PULMONARY PROGRESS NOTE SUBJECTIVE: The patient was seen and examined at the bedside. She is not in acute distress. She is receiving inhalation treatment with DuoNeb and Budesonide. Her oxygen saturation is 96 on nasal cannula. PHYSICAL EXAMINATION: VITAL SIGNS: Temperature 98, pulse 92, blood pressure 140/70 and respirations 20. HEAD, EARS, EYES, NOSE AND THROAT: Within normal limits. NECK: Supple with no jugular vein distention. CARDIOVASCULAR: S1 and S2. No S3, regular. PULMONARY: Diminished breath sounds bilaterally. No wheezing. GASTROINTESTINAL: Soft and nontender. No organomegaly. EXTREMITIES: Trace edema bilaterally. SKIN: Clear with no cyanosis and no skin rashes. NEUROLOGIC: No focal deficits. ASSESSMENT: The patient is planning to start chemotherapy as an outpatient after discharge. Exacerbation of chronic obstructive pulmonary disease is improving with current nebulizer treatment. She is not in respiratory distress. She uses nasal cannula. Her oxygen saturation is good. This was communicated with Dr. Stephens. Ameya Suarez MD
--- NOTE | 2017-04-09 15:38 | PN ---
DATE: 04/08/2017 SUBJECTIVE: I saw her in the transitional care unit. She is doing fairly well. She is comfortable at this time. She is on antibiotics for right breast infection on top of right breast cancer. She is currently on Ativan, Cepacol, Colace, Diflucan, DuoNebs, Duragesic, insulin, metoprolol, methylprednisolone, vitamin D, oxycodone, Pulmicort, Tessalon, Tylenol, vitamin B1, and vitamin C. She is currently off the antibiotics, but she still needs a physical therapy. She got weak yesterday, clinically out of bed. PHYSICAL EXAMINATION: VITAL SIGNS: 98.2 temp, 86 pulse, 150/69 blood pressure, 18 respiratory rate, and 90% O2 sat on room air. HEENT: Head is atraumatic and normocephalic. Throat is moist. NECK: Supple. HEART: Regular rate. LUNGS: Decreased breath sounds, but clear. ABDOMEN: Soft, morbidly obese, and nontender. Positive bowel sounds. EXTREMITIES: Trace edema. BREASTS: Right breast is bandaged, she has got a mass in it. LABORATORY DATA: She has a 9.2 white count, 8.4 hemoglobin, 25.9 hematocrit with 137 platelets. Sodium 140, potassium 3.7, BUN 20, creatinine 0.64, GFR is greater than 60, sugars 229, calcium is 8.6, total bili is 0.6, AST is 374, ALT is 56, alk phos is 842, total protein is 5.9, and positive stool for occult blood. ASSESSMENT AND PLAN: She has consults with infectious disease, oncology, surgery, and pulmonology. I will call in GI for the stool for occult blood and she dropped half a point in her hemoglobin. We will continue to encourage physical therapy, check her labs, see her for breast cancer, left breast infection, pneumonia, obesity, and now with GI bleed. Christian Stephens DO
--- NOTE | 2017-04-09 20:36 | PN ---
DATE: 04/09/2017 SUBJECTIVE: The patient is in bed, in no acute distress, nontoxic. No fevers. PHYSICAL EXAMINATION VITAL SIGNS: Temperature is 98, blood pressure is 160/90, respiratory rate of 20, heart rate of 101. HEENT: Unremarkable. NECK: Supple. LUNGS: Decreased breath sounds. HEART: Normal S1 and S2. ABDOMEN: Soft and nontender. LABORATORY DATA: Reveals her white count is 9.2, hemoglobin of 8, platelets of 137. Chemistries reveal a BUN of 20, creatinine of 0.6. Microbiology is noted. ASSESSMENT AND PLAN: A 71-year-old female status post sepsis due to left-sided healthcare associated pneumonia, superinfection of breast cancer, obesity, and has completed the course of the antibiotics. Currently, off of antibiotics, afebrile. The patient was seen earlier in room 322. No further antibiotics. We will follow with you. Jesus Alberto Estrada MD
[2017-04-09] MEDS: LORazepam Half Tablet 0.25 MG PO SCH (21:44)
[2017-04-10] MEDS: Albuterol-Ipratrop 3 mg / 0.5 (3 ml) UD IH SCH ×4 (02:30→20:30)
[2017-04-10] MEDS: oxyCODONE 10 mg Immediate Release Tab PO PRN ×2 (05:40→17:40)
[2017-04-10] MEDS: methylPREDNISolone 500 MG in Sodium Chloride 0.9% 100 ML IVPB SCH (05:40)
[2017-04-10] MEDS: Insulin Reg-HIGH-Coverage SC SCH ×4 (06:32→22:11)
[2017-04-10] MEDS: Insulin Human NPH 1 UNITS/0.01 ML SC SCH ×2 (06:34→17:29)
[2017-04-10 06:53] LABS: MEAN CELL VOLUME 94.9 fl (80.0-105.0); MEAN CORPUSCULAR HEMOGLOBIN 30.4 pg (25.0-35.0); MEAN CORPUSCULAR HGB CONC 32.1 g/dl (31.0-37.0); MEAN PLATELET VOLUME 9.3 fl (7.0-11.0); RED CELL DISTRIBUTION WIDTH 18.3 % (11.5-14.5); WHITE BLOOD COUNT 8.2 10^3/ul (4.5-11.0)
[2017-04-10 06:58] LABS: ALKALINE PHOSPHATASE 875 U/L (38-133); ALT/SGPT 58 U/L (7-56); AST/SGOT 344 U/L (15-39); BILIRUBIN,TOTAL 0.8 mg/dL (0.2-1.3); BLOOD UREA NITROGEN 22 mg/dL (7-21); CALCIUM 8.7 mg/dL (8.4-10.5); CARBON DIOXIDE 31 mmol/L (21-33); CHLORIDE 100 mmol/L (95-110); GFR AFRICAN-AMERICAN > 60; GLUCOSE,RANDOM 241 mg/dL (70-110); POTASSIUM 3.3 mmol/L (3.6-5.0); SODIUM 140 mmol/L (132-148); TOTAL PROTEIN 5.5 g/dL (5.8-8.3)
[2017-04-10] MEDS: Budesonide 0.5 mg/2 ml Inhal Susp UD IH SCH (07:35)
--- NOTE | 2017-04-10 07:46 | CP.PCM.CON ---
<Dayanna Aguila - Last Filed: 04/10/17 11:56> History of Present Illness - History of Present Illness History of Present Illness: Gastroenterology Fellow/PGY5 Consult Note 71 year old female with history of COPD, constipation, and Stage IV Breast Cancer with bone/lung metastases (01/2016) s/p hormone therapy and radiation presenting with right breast mass infection. Patient initially presented after Oncology outpatient follow up and note of right breast mass drainage. At that time, she admitted to fever, body aches, and poor appetite. Since admission underwent active treatment of right breast mass Staph. Lugdurensis superinfection and HCAP with completion of broad spectrum antibiotics since 04/07. Today, patient admits to continued poor appetite without few pounds weight variation but denies significant unintentional weight loss. Denies nausea, vomiting, abdominal pain, distension, bloating, heartburn, indigestion, acid reflux, hematemesis, diarrhea, melena, hematochezia, pruritis, or yellowing of skin/eyes. No prior EGD or colonoscopy. Family- denies stomach cancer, colon cancer Social- prior 30 pack year history, quit in , denies alcohol or illicit drug use Surgery- cholecystectomy, hysterectomy, cataract Review of Systems - Review of Systems Review of Systems: 12-point review of systems negative except for as above Past Patient History - Infectious Disease Hx of Infectious Diseases: None - Tetanus Immunizations Tetanus Immunization: Unknown - Past Social History Smoking Status: Former Smoker - CARDIAC Hx Cardiac Disorders: No Hx Angina: No Hx Cardia Arrhythmia: No Hx Circulatory Problems: No Hx Congestive Heart Failure: No Hx Heart Murmur: No Hx Heart Transplant: No Hx Hypertension: No Hx Internal Defibrillator: No Hx Mitral Valve Prolapse: No Hx Pacemaker: No Hx Peripheral Edema: No Hx Peripheral Vascular Disease: No - PULMONARY Hx Respiratory Disorders: Yes (SMOKED CIGARETTES QUIT 1981 PPD) Hx Asthma: No Hx Bronchitis: No Hx Chronic Obstructive Pulmonary Disease (COPD): No Hx Emphysema: No Hx Pneumonia: No Hx Respiratory Aspiration: No Hx Respiratory Tract Infection: No Hx Sleep Apnea: No Hx Tuberculosis: No - NEUROLOGICAL Hx Neurological Disorder: No Hx Alzheimer's Disease: No HX Cerebrovascular Accident: No Hx Dementia: No Hx Dizziness: No Hx Meningitis: No Hx Migraine: No Hx Parkinson's Disease: No Hx Seizures: No Hx Transient Ischemic Attacks (TIA): No - HEENT Hx HEENT Problems: Yes Hx Blind: No Hx Cataracts: Yes (h/o cataract surgery) Hx Deafness: No Hx Difficulty Chewing: No Hx Epistaxis: No Hx Glaucoma: No Hx Macular Degeneration: No - RENAL Hx Chronic Kidney Disease: No Hx Dialysis: No Hx Kidney Stones: No Hx Neurogenic Bladder: No Hx Pyelonephritis: No Hx Renal (Kidney) Cancer: No Hx Renal Failure: No - ENDOCRINE/METABOLIC Hx Endocrine Disorders: No Hx Adrenal Cancer: No Hx Diabetes Insipidus: No Hx Diabetes Mellitus Type 1: No Hx Diabetes Mellitus Type 2: No Hx Hyperthyroidism: No Hx Hypothyroidism: No Hx Systemic Lupus Erythematosus: No - HEMATOLOGICAL/ONCOLOGICAL Hx Blood Disorders: Yes Hx AIDS: No Hx Anemia: No Hx Cancer: Yes (breast cancer WITH METS,COLON AND BONE) Hx Chemotherapy: Yes (PILLS STARTED FEBRUARY 2017) Hx Cirrhosis: No Hx Hemophilia: No Hx Hepatitis A: No Hx Hepatitis B: No Hx Hepatitis C: No Hx Metastesis: No Hx Shingles: No Hx Sickle Cell Disease: No Hx Unexplained Bleeding: No Other/Comment: RADIATION - INTEGUMENTARY Hx Dermatological Problems: Yes Hx Basil Cell: No Hx Eczema: No Hx Melanoma: No Hx Psoriasis: No Hx Squamous Cell: No Other/Comment: 03-30-17 CODE SEPSIS-RIGHT BREAST INFECTION,MID LOWER BACK DIMPLING OF SKIN,DRY SCABBED AREA.LEFT 0.3 CM WOUND TO LABIA MAJORA.BILATERAL GROIN AREA DARKENED SKIN DISCOLORATION - MUSCULOSKELETAL/RHEUMATOLOGICAL Hx Falls: No - GASTROINTESTINAL Hx Gastrointestinal Disorders: Yes (CHOLECYSTECTOMY,CONSTIPATION) - GENITOURINARY/GYNECOLOGICAL Hx Reproductive Disorders: No - PSYCHIATRIC Hx Psychophysiologic Disorder: Yes Hx Anxiety: Yes Hx Bipolar Disorder: No Hx Depression: No Hx Emotional Abuse: No Hx Hallucinations: No Hx Panic Symptoms: No Hx Post Traumatic Stress Disorder: No Hx Psychosis: No Hx Physical Abuse: No Hx Schizophrenia: No Hx Sexual Abuse: No Hx Substance Use: No - SURGICAL HISTORY Hx Surgeries: Yes Hx Amputation: No Hx Appendectomy: No Hx Cardiac Catheterization: No Hx Cholecystectomy: Yes Hx Coronary Stent: No Hx Gastric Bypass Surgery: No Hx Hysterectomy: Yes Hx Joint Replacement: No Hx Kidney Transplant: No Hx Liver Transplant: No Hx Mastectomy: No Hx Musculoskeletal Surgery: No Hx Open Heart Surgery: No Hx Orthopedic Surgery: No Hx Splenectomy: No Hx Valve Replacement: No - ANESTHESIA Hx Anesthesia: Yes Hx Anesthesia Reactions: No Meds Allergies/Adverse Reactions: Allergies Allergy/AdvReac Type Severity Reaction Status Date / Time No Known Allergies Allergy Verified 03/30/17 18:50 - Medications Medications: Current Medications Acetaminophen (Tylenol 325mg Tab) 650 mg PO Q4H PRN PRN Reason: Pain, moderate (4-7) Last Admin: 04/10/17 00:11 Dose: 650 mg Albuterol/Ipratropium (Duoneb 3 Mg/0.5 Mg (3 Ml) Ud) 3 ml IH [id number] [facility] Last Admin: 04/10/17 07:35 Dose: 3 ml Albuterol/Ipratropium (Duoneb 3 Mg/0.5 Mg (3 Ml) Ud) 3 ml IH Q2H PRN PRN Reason: Shortness of Breath Ascorbic Acid (Vitamin C 500 Mg Tab) 500 mg PO DAILY [facility] Last Admin: 04/09/17 11:41 Dose: 500 mg Benzocaine/Menthol (Cepacol Sore Throat) 1 [place] MT Q2H PRN PRN Reason: Sore Throat Benzonatate (Tessalon Perles) 100 mg PO BID [facility] Last Admin: 04/09/17 17:52 Dose: 100 mg Budesonide (Pulmicort Respules) 0.5 mg IH 0800 [facility] Last Admin: 04/10/17 07:35 Dose: 0.5 mg Calcium/Vitamin D (Oscal-D 250 Mg-125 Units Tab) 2 tab PO DAILY [facility] Last Admin: 04/09/17 11:41 Dose: 2 tab Docusate Sodium (Colace) 100 mg PO DAILY [facility] Last Admin: 04/09/17 11:41 Dose: Not Given Fentanyl (Duragesic) 1 patch TD Q72H [facility] Last Admin: 04/09/17 14:50 Dose: 1 patch Fluconazole (Diflucan) 100 mg PO DAILY [facility] PRN Reason: Protocol Last Admin: 04/09/17 11:41 Dose: 100 mg Methylprednisolone 500 mg/ (Sodium Chloride) 100 mls @ 200 mls/hr IVPB 0600 [facility] Last Admin: 04/10/17 05:40 Dose: 200 mls/hr Insulin Human NPH (Humulin N) 10 units SC ACB [facility] Last Admin: 04/10/17 06:34 Dose: 10 units Insulin Human NPH (Humulin N) 10 units SC DAILY@1745 [facility] Last Admin: 04/09/17 17:50 Dose: 10 units Insulin Human Regular (Humulin R High) 0 units SC ACHS [facility] PRN Reason: Protocol Last Admin: 04/10/17 06:32 Dose: 7 units Lorazepam (Ativan) 0.25 mg PO HS [facility] PRN Reason: Protocol Last Admin: 04/09/17 21:44 Dose: 0.25 mg Metoprolol Tartrate (Lopressor) 25 mg PO 0800,1800 [facility] Last Admin: 04/09/17 17:52 Dose: 25 mg Oxycodone HCl (Oxycodone Immediate Release Tab) 10 mg PO Q8H PRN PRN Reason: Pain, severe (8-10) Last Admin: 04/10/17 05:40 Dose: 10 mg Thiamine HCl (Vitamin B1 Tab) 100 mg PO DAILY [facility] Last Admin: 04/09/17 11:42 Dose: 100 mg Physical Exam - Constitutional Appears: Non-toxic, No Acute Distress, Chronically Ill - Head Exam Head Exam: ATRAUMATIC, NORMOCEPHALIC - Eye Exam Eye Exam: EOMI, PERRL Pupil Exam: PERRL. absent: Miosis, Mydriatic - ENT Exam ENT Exam: Mucous Membranes Moist, Normal Oropharynx - Neck Exam Neck exam: Positive for: Full Rom, Normal Inspection - Respiratory Exam Respiratory Exam: Clear to Auscultation Bilateral. absent: Rales, Rhonchi, Wheezes - Cardiovascular Exam Cardiovascular Exam: RRR, +S1, +S2. absent: Gallop, Rubs - GI/Abdominal Exam GI & Abdominal Exam: Normal Bowel Sounds, Soft. absent: Distended, Firm, Guarding, Organomegaly, Rebound, Rigid, Tenderness - Extremities Exam Extremities exam: Positive for: normal inspection, pedal edema - Neurological Exam Neurological exam: Alert - Psychiatric Exam Psychiatric exam: Normal Affect, Normal Mood - Skin Skin Exam: Dry, Intact, Normal Color, Warm Results - Vital Signs Recent Vital Signs: Last Vital Signs Temp 98.4 F 04/09/17 15:56 Pulse 101 H 04/09/17 17:52 Resp 20 04/09/17 15:56 BP 162/91 H 04/09/17 17:52 Pulse Ox 91 L 04/09/17 09:56 - Labs Result Diagrams: 04/10/17 06:00 04/10/17 06:00 Labs: Laboratory Results - last 24 hr 04/09/17 04/09/17 04/09/17 06:23 11:57 16:44 WBC RBC Hgb Hct MCV MCH MCHC RDW Plt Count MPV Sodium Potassium Chloride Carbon Dioxide Anion Gap BUN Creatinine Est GFR ( Amer) Est GFR (Non-Af Amer) POC Glucose (mg/dL) 241 H 265 H 293 H Random Glucose Calcium Total Bilirubin AST ALT Alkaline Phosphatase Total Protein Albumin Globulin Albumin/Globulin Ratio 04/09/17 04/10/17 04/10/17 21:34 06:00 06:00 WBC 8.2 RBC 2.53 L Hgb 7.7 L Hct 24.0 L MCV 94.9 MCH 30.4 MCHC 32.1 RDW 18.3 H Plt Count 123 MPV 9.3 Sodium 140 Potassium 3.3 L Chloride 100 Carbon Dioxide 31 Anion Gap 12 BUN 22 H Creatinine 0.7 Est GFR ( Amer) > 60 Est GFR (Non-Af Amer) > 60 POC Glucose (mg/dL) 332 H Random Glucose 241 H Calcium 8.7 Total Bilirubin 0.8 AST 344 H ALT 58 H Alkaline Phosphatase 875 H Total Protein 5.5 L Albumin 2.7 L Globulin 2.8 Albumin/Globulin Ratio 1.0 L Assessment & Plan - Assessment and Plan (Free Text) Assessment: 71 year old female with history of COPD, constipation, and Stage IV Breast Cancer with bone/lung metastases (01/2016) s/p hormone therapy and radiation presenting with right breast mass infection. Active treatment of right breast mass Staph. Lugdurensis superinfection and HCAP with completion of broad spectrum antibiotics on 04/07/17. GI consultation for anemia and FOBT positive. No prior EGD or colonoscopy. Plan: >will benefit from endoscopic evaluation given anemia and history of Breast cancer >H/H trend, stable within range during admission >received iron sucrose 04/07/17 >no signs of overt GI blood loss >hemodynamically stable >refuses rectal exam >elevated LFTs, acute on chronic >negative Hepatitis panel >Abdominal U/S-hepatic steatosis >pending Abdominal U/S Duplex, autoimmune workup >lengthy discussion held given medical history of Stage IV Breast cancer will hold off on inpatient endoscopic evaluation >patient will discuss elective EGD and colonoscopy evaluation with family once medically optimized and based on long-term goals and care <Can Call MD - Last Filed: 04/10/17 12:53> Meds - Medications Medications: Current Medications Acetaminophen (Tylenol 325mg Tab) 650 mg PO Q4H PRN PRN Reason: Pain, moderate (4-7) Last Admin: 04/10/17 00:11 Dose: 650 mg Albuterol/Ipratropium (Duoneb 3 Mg/0.5 Mg (3 Ml) Ud) 3 ml IH [id number] [facility] Last Admin: 04/10/17 07:35 Dose: 3 ml Albuterol/Ipratropium (Duoneb 3 Mg/0.5 Mg (3 Ml) Ud) 3 ml IH Q2H PRN PRN Reason: Shortness of Breath Ascorbic Acid (Vitamin C 500 Mg Tab) 500 mg PO DAILY [facility] Last Admin: 04/10/17 10:51 Dose: 500 mg Benzocaine/Menthol (Cepacol Sore Throat) 1 reno MT Q2H PRN PRN Reason: Sore Throat Benzonatate (Tessalon Perles) 100 mg PO BID [facility] Last Admin: 04/10/17 10:51 Dose: 100 mg Budesonide (Pulmicort Respules) 0.5 mg IH 0800 [facility] Last Admin: 04/10/17 07:35 Dose: 0.5 mg Calcium/Vitamin D (Oscal-D 250 Mg-125 Units Tab) 2 tab PO DAILY [facility] Last Admin: 04/10/17 10:51 Dose: 2 tab Docusate Sodium (Colace) 100 mg PO DAILY [facility] Last Admin: 04/10/17 10:50 Dose: Not Given Fentanyl (Duragesic) 1 patch TD Q72H [facility] Last Admin: 04/09/17 14:50 Dose: 1 patch Fluconazole (Diflucan) 100 mg PO DAILY [facility] PRN Reason: Protocol Last Admin: 04/10/17 10:51 Dose: 100 mg Methylprednisolone 500 mg/ (Sodium Chloride) 100 mls @ 200 mls/hr IVPB 0600 [facility] Last Admin: 04/10/17 05:40 Dose: 200 mls/hr Insulin Human NPH (Humulin N) 10 units SC ACB [facility] Last Admin: 04/10/17 06:34 Dose: 10 units Insulin Human NPH (Humulin N) 10 units SC DAILY@1745 [facility] Last Admin: 04/09/17 17:50 Dose: 10 units Insulin Human Regular (Humulin R High) 0 units SC ACHS [facility] PRN Reason: Protocol Last Admin: 04/10/17 12:16 Dose: 4 units Lorazepam (Ativan) 0.25 mg PO HS [facility] PRN Reason: Protocol Last Admin: 04/09/17 21:44 Dose: 0.25 mg Metoprolol Tartrate (Lopressor) 25 mg PO 0800,1800 [facility] Last Admin: 04/10/17 08:45 Dose: 25 mg Oxycodone HCl (Oxycodone Immediate Release Tab) 10 mg PO Q8H PRN PRN Reason: Pain, severe (8-10) Last Admin: 04/10/17 05:40 Dose: 10 mg Polyethylene Glycol (Miralax) 17 gm PO DAILY [facility] Last Admin: 04/10/17 12:18 Dose: 17 gm Thiamine HCl (Vitamin B1 Tab) 100 mg PO DAILY [facility] Last Admin: 04/10/17 10:51 Dose: 100 mg Results - Vital Signs Recent Vital Signs: Last Vital Signs Temp 97.8 F 04/10/17 10:54 Pulse 108 H 04/10/17 10:54 Resp 20 04/10/17 10:54 BP 152/85 H 04/10/17 10:54 Pulse Ox 91 L 04/09/17 09:56 - Labs Result Diagrams: 04/10/17 06:00 04/10/17 06:00 Labs: Laboratory Results - last 24 hr 04/09/17 04/09/17 04/10/17 16:44 21:34 01:52 WBC RBC Hgb Hct MCV MCH MCHC RDW Plt Count MPV Sodium Potassium Chloride Carbon Dioxide Anion Gap BUN Creatinine Est GFR ( Amer) Est GFR (Non-Af Amer) POC Glucose (mg/dL) 293 H 332 H 264 H Random Glucose Calcium Total Bilirubin GGT AST ALT Alkaline Phosphatase Total Protein Albumin Globulin Albumin/Globulin Ratio 04/10/17 04/10/17 04/10/17 05:43 06:00 06:00 WBC 8.2 RBC 2.53 L Hgb 7.7 L Hct 24.0 L MCV 94.9 MCH 30.4 MCHC 32.1 RDW 18.3 H Plt Count 123 MPV 9.3 Sodium 140 Potassium 3.3 L Chloride 100 Carbon Dioxide 31 Anion Gap 12 BUN 22 H Creatinine 0.7 Est GFR ( Amer) > 60 Est GFR (Non-Af Amer) > 60 POC Glucose (mg/dL) 256 H Random Glucose 241 H Calcium 8.7 Total Bilirubin 0.8 GGT AST 344 H ALT 58 H Alkaline Phosphatase 875 H Total Protein 5.5 L Albumin 2.7 L Globulin 2.8 Albumin/Globulin Ratio 1.0 L 04/10/17 04/10/17 06:30 11:06 WBC RBC Hgb Hct MCV MCH MCHC RDW Plt Count MPV Sodium Potassium Chloride Carbon Dioxide Anion Gap BUN Creatinine Est GFR ( Amer) Est GFR (Non-Af Amer) POC Glucose (mg/dL) 228 H Random Glucose Calcium Total Bilirubin GGT 352 H AST ALT Alkaline Phosphatase Total Protein Albumin Globulin Albumin/Globulin Ratio Attending/Attestation - Attestation I have personally seen and examined this patient.: Yes I have fully participated in the care of the patient.: Yes I have reviewed all pertinent clinical information: Yes Notes (Text): 04/10/17 12:33 Patient seen with GI fellow on rounds this am. This is a 71 year old female with history of COPD, constipation, and Stage IV Breast Cancer with bone/lung metastases (01/2016) s/p hormone therapy and radiation presenting with right breast mass infection and HCAP. GI consultation for anemia and FOBT positive. No prior EGD or colonoscopy. Anemia likely multi factorial from metastatic disease and malignancy. No overt GI bleeding. Discussed in detail regarding invasive luminal exam. Patient currently ambivalent. Abnormal transminases likely due to fatty liver and or metastatic disease. Alk PO elevated due to lytic bone lesions. Will complete work u by sending auto immune serologies. Family considering hospice and goals of care. 04/10/17 12:50
[2017-04-10] MEDS ORDERED: Potassium Chloride 20 mEq ER Tab PO ONE (09:32)
[2017-04-10] MEDS: Calcium-Vit D 250 mg-125 Units Tab UD PO SCH (10:51)
--- NOTE | 2017-04-10 12:10 | US ---
HISTORY: bloating COMPARISON: None available. TECHNIQUE: Transabdominal FINDINGS: UTERUS: Status post hysterectomy ENDOMETRIUM: Status post hysterectomy CERVIX: Status post hysterectomy RIGHT OVARY: Not visualized. LEFT OVARY: Not visualized. FREE FLUID: No significant free fluid noted. OTHER FINDINGS: None. IMPRESSION: Status post hysterectomy. No pelvic mass/fluid collection. Ovaries not visualized.
[2017-04-10] MEDS: POLYETHYLENE GLYCOL 3350 17 GM/Dose PACKET PO SCH (12:18)
--- NOTE | 2017-04-10 13:54 | PN ---
DATE: SUBJECTIVE: She is very weak in bed. She has some abdominal distention yesterday, ordered ultrasound of the abdomen and pelvis. I do not think it was done yet. I discussed with family at length that she is getting weak. She is on Ativan, Cepacol, Colace, Diflucan, DuoNebs, Duragesic patch, insulin, Lopressor, methylprednisolone, Os-Rafael, oxycodone, Pulmicort, Tessalon Perles, Tylenol, vitamin C, and vitamin B1. PHYSICAL EXAMINATION VITAL SIGNS: She has 98.4 temperature, 101 pulse, 119/69 blood pressure, 20 respiratory rate, and 91% O2 saturation on room air. HEENT: Head is atraumatic and normocephalic. Throat is moist. NECK: Supple. HEART: Regular rate. LUNGS: Decreased breath sounds, but clear. ABDOMEN: Soft, obese, and nontender. Does not feel distended for me as a family suggested, it feels soft and normal with positive bowel sounds. She is not eating that much, little bit empty in the belly. EXTREMITIES: No edema. LABORATORY DATA: We have a 8.2 white count, the hemoglobin dropped to 7.7, I am going to transfuse 2 units of packed red blood cells and check her stools for occult blood, hematocrit of 24, platelets are 123 and we signed the consent this morning. She has 140 sodium, potassium of 3.3, however, replaced the potassium, BUN is 22, and creatinine is 0.72. GFR is greater than 60, sugars are 241, calcium is 8.7, and total bilirubin is 0.8. GGT is 352, AST is 344, ALT is 58, alkaline phosphatase is 875, and total protein is 5.5. She has positive stool for occult blood. ASSESSMENT AND PLAN: She is being seen by Gastrointestinal, Infectious Diseases, Pulmonary. Gastrointestinal wants to do an endoscopy, she is not really happy about that. I am going to transfuse her 2 units today. Check ultrasound of her abdomen and pelvis and I believe she will improve so. She has multiple problems. She has a right breast cancer with the right breast infection, left pneumonia, anemia and now gastrointestinal bleed. Christian Stephens DO
[2017-04-10 15:10] LABS: IMMUNOGLOBULIN G 650.1 mg/dL (700.0-1600.0)
[2017-04-10 15:11] LABS: IMMUNOGLOBULIN A 263.8 mg/dL (70.0-400.0)
--- NOTE | 2017-04-10 21:26 | PN ---
DATE: 04/10/2017 SUBJECTIVE: The patient is in bed, in no acute distress. PHYSICAL EXAMINATION: VITAL SIGNS: Temperature is 98, blood pressure is 119/60, respiratory rate of 18. HEENT: Unremarkable. NECK: Supple. LUNGS: Have decreased breath sounds. HEART: Normal S1 and S2. ABDOMEN: Soft and nontender. LABORATORY EXAMINATION: Reveals the patient's white count is 8.2, hemoglobin of 7.7 and platelets of 123. Chemistries reveal a BUN of 22, creatinine of 0.7. ASSESSMENT AND PLAN: This is a 71-year-old female with status post sepsis due to the healthcare associated pneumonia, superinfection of breast cancer, obesity, and completed the course of antibiotics. Currently, off of antibiotics. Review of the orders shows that the patient to be on p.o. Diflucan. The patient is on Solu-Medrol. She is at risk for developing nosocomial infections. Jesus Alberto Estrada MD
[2017-04-10] MEDS: LORazepam Half Tablet 0.25 MG PO SCH (22:15)
[2017-04-11] MEDS: Albuterol-Ipratrop 3 mg / 0.5 (3 ml) UD IH SCH ×4 (02:25→20:04)
[2017-04-11] MEDS: methylPREDNISolone 500 MG in Sodium Chloride 0.9% 100 ML IVPB SCH (05:41)
[2017-04-11] MEDS: Insulin Human NPH 1 UNITS/0.01 ML SC SCH ×2 (06:48→18:23)
[2017-04-11] MEDS: Insulin Reg-HIGH-Coverage SC SCH ×4 (06:49→22:01)
[2017-04-11] MEDS: Budesonide 0.5 mg/2 ml Inhal Susp UD IH SCH (07:31)
[2017-04-11 07:34] LABS: HEMATOCRIT 33.4 % (36.0-48.0); MEAN CELL VOLUME 91.8 fl (80.0-105.0); MEAN CORPUSCULAR HEMOGLOBIN 29.9 pg (25.0-35.0); MEAN CORPUSCULAR HGB CONC 32.6 g/dl (31.0-37.0); MEAN PLATELET VOLUME 9.2 fl (7.0-11.0); RED CELL DISTRIBUTION WIDTH 17.6 % (11.5-14.5); WHITE BLOOD COUNT 7.8 10^3/ul (4.5-11.0)
[2017-04-11 07:51] LABS: ALKALINE PHOSPHATASE 942 U/L (38-133); ALT/SGPT 80 U/L (7-56); AST/SGOT 404 U/L (15-39); BILIRUBIN,TOTAL 1.2 mg/dL (0.2-1.3); BLOOD UREA NITROGEN 24 mg/dL (7-21); CALCIUM 8.3 mg/dL (8.4-10.5); CARBON DIOXIDE 34 mmol/L (21-33); CHLORIDE 96 mmol/L (98-107); GFR AFRICAN-AMERICAN > 60; GLUCOSE,RANDOM 243 mg/dL (70-110); POTASSIUM 3.4 mmol/L (3.6-5.0); SODIUM 140 mmol/L (132-148); TOTAL PROTEIN 5.8 g/dL (5.8-8.3)
[2017-04-11] MEDS: Calcium-Vit D 250 mg-125 Units Tab UD PO SCH (10:24)
[2017-04-11] MEDS: POLYETHYLENE GLYCOL 3350 17 GM/Dose PACKET PO SCH (10:25)
--- NOTE | 2017-04-11 10:33 | CP.PCM.PN ---
Subjective - Date & Time of Evaluation Date of Evaluation: 04/11/17 Time of Evaluation: 10:15 - Subjective Subjective: Patient seen and examined, resting comfortably in bed. No acute events overnight. She appears fatigued and somewhat confused this morning though denies abdominal pain, nausea, vomiting, fever/chills. Tolerating PO diet without difficulty. Review of vitals from today shows tachycardia. 12 point review of systems performed, negative aside from mentioned above. Objective - Vital Signs/Intake and Output Vital Signs (last 24 hours): Temp Pulse Resp BP Pulse Ox 98.5 F 105 H 19 125/59 L 95 04/11/17 10:10 04/11/17 10:10 04/11/17 10:10 04/11/17 10:10 04/10/17 16:15 Intake and Output: 04/11/17 04/11/17 06:59 18:59 Intake Total 480 Output Total 1000 Balance -520 - Medications Medications: Current Medications Acetaminophen (Tylenol 325mg Tab) 650 mg PO Q4H PRN PRN Reason: Pain, moderate (4-7) Last Admin: 04/11/17 06:23 Dose: 650 mg Albuterol/Ipratropium (Duoneb 3 Mg/0.5 Mg (3 Ml) Ud) 3 ml IH [id number] [facility] Last Admin: 04/11/17 07:31 Dose: 3 ml Albuterol/Ipratropium (Duoneb 3 Mg/0.5 Mg (3 Ml) Ud) 3 ml IH Q2H PRN PRN Reason: Shortness of Breath Ascorbic Acid (Vitamin C 500 Mg Tab) 500 mg PO DAILY [facility] Last Admin: 04/10/17 10:51 Dose: 500 mg Benzocaine/Menthol (Cepacol Sore Throat) 1 reno MT Q2H PRN PRN Reason: Sore Throat Benzonatate (Tessalon Perles) 100 mg PO BID [facility] Last Admin: 04/10/17 17:31 Dose: 100 mg Budesonide (Pulmicort Respules) 0.5 mg IH 0800 [facility] Last Admin: 04/11/17 07:31 Dose: 0.5 mg Calcium/Vitamin D (Oscal-D 250 Mg-125 Units Tab) 2 tab PO DAILY [facility] Last Admin: 04/10/17 10:51 Dose: 2 tab Docusate Sodium (Colace) 100 mg PO DAILY [facility] Last Admin: 04/10/17 10:50 Dose: Not Given Fentanyl (Duragesic) 1 patch TD Q72H [facility] Last Admin: 04/09/17 14:50 Dose: 1 patch Methylprednisolone 500 mg/ (Sodium Chloride) 100 mls @ 200 mls/hr IVPB 0600 [facility] Last Admin: 04/11/17 05:41 Dose: 200 mls/hr Insulin Human NPH (Humulin N) 10 units SC ACB [facility] Last Admin: 04/11/17 06:48 Dose: 10 units Insulin Human NPH (Humulin N) 10 units SC DAILY@1745 [facility] Last Admin: 04/10/17 17:29 Dose: 10 units Insulin Human Regular (Humulin R High) 0 units SC ACHS [facility] PRN Reason: Protocol Last Admin: 04/11/17 06:49 Dose: 7 units Lorazepam (Ativan) 0.25 mg PO HS [facility] PRN Reason: Protocol Last Admin: 04/10/17 22:15 Dose: 0.25 mg Metoprolol Tartrate (Lopressor) 25 mg PO 0800,1800 [facility] Last Admin: 04/10/17 17:31 Dose: 25 mg Polyethylene Glycol (Miralax) 17 gm PO DAILY [facility] Last Admin: 04/10/17 12:18 Dose: 17 gm Thiamine HCl (Vitamin B1 Tab) 100 mg PO DAILY [facility] Last Admin: 04/10/17 10:51 Dose: 100 mg - Labs Labs: 04/11/17 07:27 04/11/17 07:27 - Constitutional Appears: Non-toxic, No Acute Distress - Head Exam Head Exam: NORMAL INSPECTION - Eye Exam Eye Exam: Normal appearance - ENT Exam ENT Exam: Mucous Membranes Moist - Respiratory Exam Respiratory Exam: Clear to Ausculation Bilateral - Cardiovascular Exam Cardiovascular Exam: REGULAR RHYTHM, +S1, +S2 - GI/Abdominal Exam GI & Abdominal Exam: Soft, Normal Bowel Sounds Additional comments: non tender to palpation in four quadrants obese - Extremities Exam Extremities Exam: Normal Inspection - Skin Skin Exam: Dry, Intact, Normal Color, Warm Assessment and Plan - Assessment and Plan (Free Text) Assessment: Obesity COPD Stage IV breast cancer s/p radiation therapy Pneumonia R breast infection Transaminitis Anemia, normocytic, chronic disease Plan: - Diet as tolerated - H/H stable, s/p PRBC transfusion, continue to monitor - LFTs stable, continue to monitor - etiology multifactorial, possibly medication induced - Awaiting for abdominal US and autoimmune panel results - Given overall patient medical condition and recent treatment of pneumonia, would not favor any invasive endoscopic evaluation at this time. Will continue to monitor patient clinical course.
--- NOTE | 2017-04-11 13:37 | CP.PCM.PN ---
Subjective - Date & Time of Evaluation Date of Evaluation: 04/11/17 Time of Evaluation: 10:20 - Subjective Subjective: Comfortable in bed, afebrile, not in distress. Objective - Vital Signs/Intake and Output Vital Signs (last 24 hours): Temp Pulse Resp BP Pulse Ox 98.4 F 102 H 20 145/65 95 04/10/17 16:15 04/10/17 16:15 04/10/17 16:15 04/10/17 17:31 04/10/17 16:15 Intake and Output: 04/11/17 04/11/17 06:59 18:59 Intake Total 480 Output Total 1000 Balance -520 - Medications Medications: Current Medications Acetaminophen (Tylenol 325mg Tab) 650 mg PO Q4H PRN PRN Reason: Pain, moderate (4-7) Last Admin: 04/11/17 06:23 Dose: 650 mg Albuterol/Ipratropium (Duoneb 3 Mg/0.5 Mg (3 Ml) Ud) 3 ml IH [id number] [facility] Last Admin: 04/11/17 07:31 Dose: 3 ml Albuterol/Ipratropium (Duoneb 3 Mg/0.5 Mg (3 Ml) Ud) 3 ml IH Q2H PRN PRN Reason: Shortness of Breath Ascorbic Acid (Vitamin C 500 Mg Tab) 500 mg PO DAILY [facility] Last Admin: 04/10/17 10:51 Dose: 500 mg Benzocaine/Menthol (Cepacol Sore Throat) 1 reno MT Q2H PRN PRN Reason: Sore Throat Benzonatate (Tessalon Perles) 100 mg PO BID [facility] Last Admin: 04/10/17 17:31 Dose: 100 mg Budesonide (Pulmicort Respules) 0.5 mg IH 0800 [facility] Last Admin: 04/11/17 07:31 Dose: 0.5 mg Calcium/Vitamin D (Oscal-D 250 Mg-125 Units Tab) 2 tab PO DAILY [facility] Last Admin: 04/10/17 10:51 Dose: 2 tab Docusate Sodium (Colace) 100 mg PO DAILY [facility] Last Admin: 04/10/17 10:50 Dose: Not Given Fentanyl (Duragesic) 1 patch TD Q72H [facility] Last Admin: 04/09/17 14:50 Dose: 1 patch Methylprednisolone 500 mg/ (Sodium Chloride) 100 mls @ 200 mls/hr IVPB 0600 [facility] Last Admin: 04/11/17 05:41 Dose: 200 mls/hr Insulin Human NPH (Humulin N) 10 units SC ACB [facility] Last Admin: 04/11/17 06:48 Dose: 10 units Insulin Human NPH (Humulin N) 10 units SC DAILY@1745 [facility] Last Admin: 04/10/17 17:29 Dose: 10 units Insulin Human Regular (Humulin R High) 0 units SC ACHS [facility] PRN Reason: Protocol Last Admin: 04/11/17 06:49 Dose: 7 units Lorazepam (Ativan) 0.25 mg PO HS [facility] PRN Reason: Protocol Last Admin: 04/10/17 22:15 Dose: 0.25 mg Metoprolol Tartrate (Lopressor) 25 mg PO 0800,1800 [facility] Last Admin: 04/10/17 17:31 Dose: 25 mg Polyethylene Glycol (Miralax) 17 gm PO DAILY [facility] Last Admin: 04/10/17 12:18 Dose: 17 gm Thiamine HCl (Vitamin B1 Tab) 100 mg PO DAILY [facility] Last Admin: 04/10/17 10:51 Dose: 100 mg - Labs Labs: 04/11/17 07:27 04/11/17 07:27 - Constitutional Appears: Non-toxic, No Acute Distress - Head Exam Head Exam: NORMAL INSPECTION - Respiratory Exam Respiratory Exam: Decreased Breath Sounds - Cardiovascular Exam Cardiovascular Exam: +S1, +S2 - GI/Abdominal Exam GI & Abdominal Exam: Soft. absent: Tenderness Assessment and Plan - Assessment and Plan (Free Text) Plan: Assessment S/P Sepsis due to left sided healthcare-associated pneumonia and probable superinfection of the breast cancer area, clinically improved and S/P treatment Breast cancer obesity with BMI 30 Plan completed course of Vancomycin, Zosyn and Doxycycline - will continue to monitor off antibiotics since she is at risk for hospital-acquired infections
--- NOTE | 2017-04-11 14:28 | US ---
PROCEDURE: Portal vein duplex ultrasound. CLINICAL HISTORY: Cirrhosis. Deteriorating liver function. Evaluate for portal vein thrombosis. PHYSICIAN(S): Jonathan Luna M.D. FINDINGS: The exam is extremely limited. Limited images of the extrahepatic portal vein reveal a patent portal vein with hepatopetal flow. The hepatic artery is not adequately visualized. Limited imaging of the central patent veins are patent. The spleen is not obviously enlarged. No significant ascites is seen in the upper abdomen. IMPRESSION: 1. Extremely limited study. 2. Patent extrahepatic portal vein with hepatopetal flow
--- NOTE | 2017-04-11 14:40 | PN ---
DATE: 04/11/2017 SUBJECTIVE: The patient appears comfortable this morning. She is not short of breath at rest. PHYSICAL EXAMINATION VITAL SIGNS: Temperature is 98.4, pulse 88, respirations 18, blood pressure 145/65. Oxygen saturation on room air is 95%. HEENT: Normocephalic, atraumatic. NECK: No JVD. CARDIOVASCULAR: Positive S1 and S2. No S3. LUNGS: Decreased breath sounds at the bases. No rhonchi or wheezing this morning. EXTREMITIES: No clubbing, cyanosis, or edema. Calves are nontender to palpation. GASTROINTESTINAL: Abdomen is soft, nontender and nondistended. Bowel sounds are positive. SKIN: No acute rashes. NEUROLOGIC: Limited at the present time. IMPRESSION: 1. Right breast infection. 2. Advanced, stage 4 breast cancer. 3. Colon, bone, and lung metastases. 4. Recurrent bronchitis. 5. Anemia. 6. Status post left upper lobe pneumonia. PLAN: The patient appears very comfortable this morning. She is not short of breath at rest. She does state that her cough is much less. On physical exam, there is no significant bronchospasm noted. In addition, the oxygen saturation on room air is now 95%. I will continue with the current nebulizer treatments and inhaled steroids for now. The patient is now off antibiotic therapy - as per infectious disease. Input by Dr. Estrada is noted. Inputs by GI and palliative care are also noted. Clinical status of the patient is significantly improved - compared to the initial presentation. However, unfortunately, the overall status/prognosis for this patient remains poor. All are aware. I will discuss the above with Dr. Stephens. Andrey Amor MD GURU
--- NOTE | 2017-04-11 16:43 | PN ---
SUBJECTIVE: I saw the patient this morning in the transitional care unit. She looks a lot better with, status post transfusion. She tells me she is very scared and nervous about her cancer and the treatment. She is weak, not doing much in therapy. She is on Ativan, Cepacol, Colace, Diflucan, DuoNebs, Duragesic, insulin, Lopressor, methylprednisolone IV, Miralax, Os-Rafael, Pulmicort, Tessalon Perles, Tylenol, vitamin B1 and vitamin C. PHYSICAL EXAMINATION: VITAL SIGNS: She has 98.4 temperature, 102 pulse, 145/65 blood pressure, 20 respiratory rate, and 95% O2 saturation on room air. HEENT: Head is atraumatic and normocephalic. Throat is moist. NECK: Supple. HEART: Regular rate. LUNGS: Decreased breath sounds but clear. ABDOMEN: Soft, morbidly obese, but nontender. EXTREMITIES: No edema. LABORATORY DATA: She has a 7.8 white count, hemoglobin is up to 10.9 after 2 units of packed cells, 32.4 hematocrit with a 108 platelets. She has a 140 sodium, potassium of 3.4, I gave her potassium today, BUN is 24, creatinine 0.6. GFR is greater than 60, sugar is 243, calcium is 8.3, and total bilirubin is 1.2. AST is 404, ALT is 80, alkaline phosphatase is 942, and total protein is 5.8. Liver enzymes have remain elevated elevated, the IgG was 650, IgA was 263 and IgM was 68. ASSESSMENT AND PLAN: She is being seen by infectious disease and by GI. The abdominal ultrasound is pending, so no endoscopy probably chemo is next. When she goes home, she will follow up with her oncologist for further treatment for the cancer. She is off antibiotics, her last day in the hospital is tomorrow. Hopefully, she will do well with physical therapy and we will discharge her tomorrow home after CCU team with aggressive treatment and care with right breast infection, status post antibiotics, right breast cancer with metastasis, stage IV. We will check her labs tomorrow. Christian Stephens DO [facility] # [id number] GURU
[2017-04-11] MEDS: LORazepam Half Tablet 0.25 MG PO SCH (21:56)
[2017-04-12] MEDS: Albuterol-Ipratrop 3 mg / 0.5 (3 ml) UD IH SCH ×3 (01:42→13:20)
[2017-04-12] MEDS: methylPREDNISolone 500 MG in Sodium Chloride 0.9% 100 ML IVPB SCH (05:36)
[2017-04-12 06:08] LABS: ALB/GLOB RATIO 0.9 (1.1-1.8); ALKALINE PHOSPHATASE 885 U/L (38-133); ALT/SGPT 93 U/L (7-56); AST/SGOT 372 U/L (15-39); BLOOD UREA NITROGEN 22 mg/dL (7-21); CALCIUM 8.5 mg/dL (8.4-10.5); CARBON DIOXIDE 36 mmol/L (21-33); CHLORIDE 93 mmol/L (95-110); GFR AFRICAN-AMERICAN > 60; GLUCOSE,RANDOM 226 mg/dL (70-110); SODIUM 138 mmol/L (132-148); TOTAL PROTEIN 5.5 g/dL (5.8-8.3)
[2017-04-12 06:48] LABS: HEMATOCRIT 32.2 % (36.0-48.0); MEAN CORPUSCULAR HGB CONC 32.6 g/dl (31.0-37.0); MEAN PLATELET VOLUME 9.5 fl (7.0-11.0); RED CELL DISTRIBUTION WIDTH 17.4 % (11.5-14.5); WHITE BLOOD COUNT 9.1 10^3/ul (4.5-11.0)
[2017-04-12 06:55] LABS: POTASSIUM 2.9 mmol/L (3.6-5.0)
[2017-04-12] MEDS: Budesonide 0.5 mg/2 ml Inhal Susp UD IH SCH (07:24)
[2017-04-12] MEDS: Insulin Human NPH 1 UNITS/0.01 ML SC SCH (07:47)
[2017-04-12] MEDS: Insulin Reg-HIGH-Coverage SC SCH ×2 (07:47→11:52)
[2017-04-12] MEDS: Potassium Chloride 20 mEq/15 ml LIQ UD PO SCH ×2 (09:06→11:55)
--- NOTE | 2017-04-12 09:37 | PN ---
DATE: 04/12/2017 SUBJECTIVE: The patient appears very comfortable this morning. She is not short of breath at rest. PHYSICAL EXAMINATION: VITAL SIGNS: Temperature 98.5, pulse this morning is approximately 88, respiratory rate 18, last blood pressure recorded 125/59. Oxygen saturation on room air is 95%. HEENT: Normocephalic, atraumatic. NECK: No JVD. CARDIOVASCULAR: Positive S1 and S2. No S3. LUNGS: Clear bilaterally this morning. EXTREMITIES: No clubbing, cyanosis, or edema. Calves are nontender to palpation. GASTROINTESTINAL: Abdomen is soft, nontender and nondistended. Bowel sounds are positive. SKIN: No acute rash. NEUROLOGIC: Limited at the present time. IMPRESSION: 1. Right breast infection. 2. Advanced, stage 4 breast cancer. 3. Colon, bone, and lung metastases. 4. Recurrent bronchitis. 5. Anemia. 6. Status post left upper lobe pneumonia. PLAN: The patient appears very comfortable this morning. She is not short of breath at rest. Her cough is much, much less. On physical exam, her lungs are now clear. Oxygen saturation on room air is now 95%. I will continue with the current nebulizer treatments and inhaled steroids for now. Input by GI and infectious disease are noted. The patient remains off antibiotic therapy. There are no temperatures noted. There is no leukocytosis. Clinical status of the patient is significantly improved-compared to the initial presentation. However, unfortunately, the overall status/prognosis for this patient is poor. All are aware. I will discuss the above with Dr. Stephens. Andrey Amor MD MTDD
[2017-04-12 10:27] VITALS: BP 142/64; PULSE 97; RESP 18; TEMP 98.7; O2SAT 98
--- NOTE | 2017-04-12 11:17 | CP.PCM.PN ---
<MingoDayanna - Last Filed: 04/12/17 13:53> Subjective - Date & Time of Evaluation Date of Evaluation: 04/12/17 Time of Evaluation: 11:14 - Subjective Subjective: Gastroenterology Fellow/PGY5 Progress Note Patient resting comfortably. Tolerating diet without nausea or vomiting. Notes slight improvement in loss of appetite. A 12-point review of systems negative except for as above. Objective - Vital Signs/Intake and Output Vital Signs (last 24 hours): Temp Pulse Resp BP Pulse Ox 98.7 F 97 H 18 142/64 98 04/12/17 10:26 04/12/17 10:26 04/12/17 10:26 04/12/17 10:26 04/12/17 10:26 - Medications Medications: Current Medications Acetaminophen (Tylenol 325mg Tab) 650 mg PO Q4H PRN PRN Reason: Pain, moderate (4-7) Last Admin: 04/12/17 04:15 Dose: 650 mg Albuterol/Ipratropium (Duoneb 3 Mg/0.5 Mg (3 Ml) Ud) 3 ml IH [id number] [facility] Last Admin: 04/12/17 07:24 Dose: 3 ml Albuterol/Ipratropium (Duoneb 3 Mg/0.5 Mg (3 Ml) Ud) 3 ml IH Q2H PRN PRN Reason: Shortness of Breath Ascorbic Acid (Vitamin C 500 Mg Tab) 500 mg PO DAILY [facility] Last Admin: 04/11/17 10:24 Dose: 500 mg Benzocaine/Menthol (Cepacol Sore Throat) 1 reno MT Q2H PRN PRN Reason: Sore Throat Benzonatate (Tessalon Perles) 100 mg PO BID [facility] Last Admin: 04/11/17 18:16 Dose: 100 mg Budesonide (Pulmicort Respules) 0.5 mg IH 0800 [facility] Last Admin: 04/12/17 07:24 Dose: 0.5 mg Calcium/Vitamin D (Oscal-D 250 Mg-125 Units Tab) 2 tab PO DAILY [facility] Last Admin: 04/11/17 10:24 Dose: 2 tab Docusate Sodium (Colace) 100 mg PO DAILY [facility] Last Admin: 04/11/17 10:24 Dose: 100 mg Fentanyl (Duragesic) 1 patch TD Q72H [facility] Last Admin: 04/09/17 14:50 Dose: 1 patch Methylprednisolone 500 mg/ (Sodium Chloride) 100 mls @ 200 mls/hr IVPB 0600 [facility] Last Admin: 04/12/17 05:36 Dose: 200 mls/hr Insulin Human NPH (Humulin N) 10 units SC ACB [facility] Last Admin: 04/12/17 07:47 Dose: 10 units Insulin Human NPH (Humulin N) 10 units SC DAILY@1745 [facility] Last Admin: 04/11/17 18:23 Dose: 10 units Insulin Human Regular (Humulin R High) 0 units SC ACHS [facility] PRN Reason: Protocol Last Admin: 04/12/17 07:47 Dose: 7 units Lorazepam (Ativan) 0.25 mg PO HS [facility] PRN Reason: Protocol Last Admin: 04/11/17 21:56 Dose: 0.25 mg Metoprolol Tartrate (Lopressor) 25 mg PO 0800,1800 [facility] Last Admin: 04/12/17 09:05 Dose: 25 mg Polyethylene Glycol (Miralax) 17 gm PO DAILY [facility] Last Admin: 04/11/17 10:25 Dose: 17 gm Thiamine HCl (Vitamin B1 Tab) 100 mg PO DAILY [facility] Last Admin: 04/11/17 10:24 Dose: 100 mg - Labs Labs: 04/12/17 05:20 04/12/17 05:20 - Constitutional Appears: Non-toxic, No Acute Distress, Chronically Ill - Head Exam Head Exam: ATRAUMATIC, NORMOCEPHALIC - Eye Exam Eye Exam: EOMI, PERRL Pupil Exam: PERRL. absent: Miosis, Mydriatic - ENT Exam ENT Exam: Mucous Membranes Moist, Normal Oropharynx - Neck Exam Neck Exam: Full ROM, Normal Inspection - Respiratory Exam Respiratory Exam: Clear to Ausculation Bilateral. absent: Rales, Rhonchi, Wheezes - Cardiovascular Exam Cardiovascular Exam: RRR, +S1, +S2. absent: Gallop, Rubs - GI/Abdominal Exam GI & Abdominal Exam: Soft, Normal Bowel Sounds. absent: Distended, Firm, Guarding, Rigid, Tenderness, Mass, Organomegaly, Rebound - Extremities Exam Extremities Exam: Normal Inspection, Pedal Edema - Neurological Exam Neurological Exam: Alert, Awake - Psychiatric Exam Psychiatric exam: Normal Affect, Normal Mood - Skin Skin Exam: Dry, Intact, Normal Color, Warm Assessment and Plan - Assessment and Plan (Free Text) Assessment: 71 year old female with history of COPD, constipation, and Stage IV Breast Cancer with bone/lung metastases (01/2016) s/p hormone therapy and radiation presenting with right breast mass infection. Active treatment of right breast mass Staph. Lugdurensis superinfection and HCAP with completion of broad spectrum antibiotics on 04/07/17. GI consultation for anemia and FOBT positive. No prior EGD or colonoscopy. Plan: >received 2U pRBCs 04/10 >H/H stable >no signs of overt GI blood loss >elevated LFTs, acute on chronic- multifactorial- drugs, fatty liver, >negative Hepatitis panel >Abdominal U/S-hepatic steatosis >normal limited Abdominal U/S Duplex >negative autoimmune workup- pending LKM >no endoscopic evaluation planned given patient decision to not undergo endoscopic procedures, advanced Stage IV cancer, and recent HCAP >continue medical optimization >counselled patient and family on endoscopic evaluation warranted if developed signs of GI bleed (melena, hematochezia, hematemesis) <Aashish Santizo - Last Filed: 04/12/17 14:18> Objective - Vital Signs/Intake and Output Vital Signs (last 24 hours): Temp Pulse Resp BP Pulse Ox 98.7 F 97 H 18 142/64 98 04/12/17 10:26 04/12/17 10:26 04/12/17 10:26 04/12/17 10:26 04/12/17 10:26 - Medications Medications: Current Medications Acetaminophen (Tylenol 325mg Tab) 650 mg PO Q4H PRN PRN Reason: Pain, moderate (4-7) Last Admin: 04/12/17 04:15 Dose: 650 mg Albuterol/Ipratropium (Duoneb 3 Mg/0.5 Mg (3 Ml) Ud) 3 ml IH [id number] [facility] Last Admin: 04/12/17 13:20 Dose: 3 ml Albuterol/Ipratropium (Duoneb 3 Mg/0.5 Mg (3 Ml) Ud) 3 ml IH Q2H PRN PRN Reason: Shortness of Breath Ascorbic Acid (Vitamin C 500 Mg Tab) 500 mg PO DAILY [facility] Last Admin: 04/12/17 11:56 Dose: 500 mg Benzocaine/Menthol (Cepacol Sore Throat) 1 reno MT Q2H PRN PRN Reason: Sore Throat Benzonatate (Tessalon Perles) 100 mg PO BID [facility] Last Admin: 04/12/17 11:55 Dose: 100 mg Budesonide (Pulmicort Respules) 0.5 mg IH 0800 [facility] Last Admin: 04/12/17 07:24 Dose: 0.5 mg Calcium/Vitamin D (Oscal-D 250 Mg-125 Units Tab) 2 tab PO DAILY [facility] Last Admin: 04/12/17 11:54 Dose: 2 tab Docusate Sodium (Colace) 100 mg PO DAILY [facility] Last Admin: 04/12/17 11:51 Dose: 100 mg Methylprednisolone 500 mg/ (Sodium Chloride) 100 mls @ 200 mls/hr IVPB 0600 [facility] Last Admin: 04/12/17 05:36 Dose: 200 mls/hr Insulin Human NPH (Humulin N) 10 units SC ACB [facility] Last Admin: 04/12/17 07:47 Dose: 10 units Insulin Human NPH (Humulin N) 10 units SC DAILY@1745 [facility] Last Admin: 04/11/17 18:23 Dose: 10 units Insulin Human Regular (Humulin R High) 0 units SC ACHS [facility] PRN Reason: Protocol Last Admin: 04/12/17 11:52 Dose: 1 units Lorazepam (Ativan) 0.25 mg PO HS [facility] PRN Reason: Protocol Last Admin: 04/11/17 21:56 Dose: 0.25 mg Metoprolol Tartrate (Lopressor) 25 mg PO 0800,1800 [facility] Last Admin: 04/12/17 09:05 Dose: 25 mg Polyethylene Glycol (Miralax) 17 gm PO DAILY [facility] Last Admin: 04/12/17 11:54 Dose: Not Given Thiamine HCl (Vitamin B1 Tab) 100 mg PO DAILY [facility] Last Admin: 04/12/17 11:56 Dose: 100 mg - Labs Labs: 04/12/17 05:20 04/12/17 05:20 Attending/Attestation - Attestation I have personally seen and examined this patient.: Yes I have fully participated in the care of the patient.: Yes I have reviewed all pertinent clinical information, including history, physical exam and plan: Yes Notes (Text): 04/12/17 14:15 71 year old female with h/o COPD, Stage IV Breast Cancer with bone/lung metastases s/p hormone therapy/XRT a/w breast infection, also with anemia, FOBT positive, and abnormal lfts. 1. Anemia 2. Occult blood positive 3. Elevated LFTs Plan: -hgb stable after transfusion, no bleeding -patient declines endoscopic evaluation -anemia is likely multifactorial considering malignancy -elevated lfts also likely multifactorial -no evidence of viral or autoimmune hepatitis -markedly elevated alk phos may be related to bony mets -may be componenet of fatty liver disease or medication induced -avoid alcohol / hepatotoxins -monitor -further evaluation at this point would consider liver biopsy, but patient not interested and by not alter management anyway
[2017-04-12] MEDS: Calcium-Vit D 250 mg-125 Units Tab UD PO SCH (11:54)
[2017-04-12] MEDS: POLYETHYLENE GLYCOL 3350 17 GM/Dose PACKET PO SCH (11:54)
--- NOTE | 2017-04-12 14:45 | CP.PCM.PN ---
Subjective - Date & Time of Evaluation Date of Evaluation: 04/12/17 Time of Evaluation: 11:35 - Subjective Subjective: Comfortable, not in distress, afebrile. Objective - Vital Signs/Intake and Output Vital Signs (last 24 hours): Temp Pulse Resp BP Pulse Ox 98.5 F 96 H 19 125/59 L 95 04/11/17 10:10 04/11/17 10:25 04/11/17 10:10 04/11/17 10:10 04/10/17 16:15 - Medications Medications: Current Medications Acetaminophen (Tylenol 325mg Tab) 650 mg PO Q4H PRN PRN Reason: Pain, moderate (4-7) Last Admin: 04/12/17 04:15 Dose: 650 mg Albuterol/Ipratropium (Duoneb 3 Mg/0.5 Mg (3 Ml) Ud) 3 ml IH [id number] [facility] Last Admin: 04/12/17 07:24 Dose: 3 ml Albuterol/Ipratropium (Duoneb 3 Mg/0.5 Mg (3 Ml) Ud) 3 ml IH Q2H PRN PRN Reason: Shortness of Breath Ascorbic Acid (Vitamin C 500 Mg Tab) 500 mg PO DAILY [facility] Last Admin: 04/11/17 10:24 Dose: 500 mg Benzocaine/Menthol (Cepacol Sore Throat) 1 reno MT Q2H PRN PRN Reason: Sore Throat Benzonatate (Tessalon Perles) 100 mg PO BID [facility] Last Admin: 04/11/17 18:16 Dose: 100 mg Budesonide (Pulmicort Respules) 0.5 mg IH 0800 [facility] Last Admin: 04/12/17 07:24 Dose: 0.5 mg Calcium/Vitamin D (Oscal-D 250 Mg-125 Units Tab) 2 tab PO DAILY [facility] Last Admin: 04/11/17 10:24 Dose: 2 tab Docusate Sodium (Colace) 100 mg PO DAILY [facility] Last Admin: 04/11/17 10:24 Dose: 100 mg Fentanyl (Duragesic) 1 patch TD Q72H [facility] Last Admin: 04/09/17 14:50 Dose: 1 patch Methylprednisolone 500 mg/ (Sodium Chloride) 100 mls @ 200 mls/hr IVPB 0600 [facility] Last Admin: 04/12/17 05:36 Dose: 200 mls/hr Insulin Human NPH (Humulin N) 10 units SC ACB [facility] Last Admin: 04/12/17 07:47 Dose: 10 units Insulin Human NPH (Humulin N) 10 units SC DAILY@1745 [facility] Last Admin: 04/11/17 18:23 Dose: 10 units Insulin Human Regular (Humulin R High) 0 units SC ACHS [facility] PRN Reason: Protocol Last Admin: 04/12/17 07:47 Dose: 7 units Lorazepam (Ativan) 0.25 mg PO HS [facility] PRN Reason: Protocol Last Admin: 04/11/17 21:56 Dose: 0.25 mg Metoprolol Tartrate (Lopressor) 25 mg PO 0800,1800 [facility] Last Admin: 04/11/17 18:15 Dose: 25 mg Polyethylene Glycol (Miralax) 17 gm PO DAILY [facility] Last Admin: 04/11/17 10:25 Dose: 17 gm Potassium Chloride (Potassium Chloride Oral Soln) 20 meq PO Q2H [facility] Stop: 04/12/17 09:16 Thiamine HCl (Vitamin B1 Tab) 100 mg PO DAILY [facility] Last Admin: 04/11/17 10:24 Dose: 100 mg - Labs Labs: 04/12/17 05:20 04/12/17 05:20 - Constitutional Appears: Non-toxic, No Acute Distress - Head Exam Head Exam: NORMAL INSPECTION - Neck Exam Neck Exam: absent: Meningismus - Respiratory Exam Respiratory Exam: Decreased Breath Sounds - Cardiovascular Exam Cardiovascular Exam: +S1, +S2 - GI/Abdominal Exam GI & Abdominal Exam: Soft. absent: Tenderness Assessment and Plan - Assessment and Plan (Free Text) Plan: Assessment S/P Sepsis due to left sided healthcare-associated pneumonia and probable superinfection of the breast cancer area, clinically improved and S/P treatment Breast cancer obesity with BMI 30 Plan completed course of Vancomycin, Zosyn and Doxycycline - will continue to monitor off antibiotics since she is at risk for healthcare-associated infections
--- NOTE | 2017-04-13 04:14 | DS ---
HOSPITAL COURSE: She is going to be discharged home today. She is telling me this morning she wants no more tests that needs to be done. She agreed with going home in a hospital bed. She wanted to discuss hospice. So, I will call in comfort care hospice to talk to family. She is in no pain right now, a little bit scared and worried, but just does not want to deal with the needles or tests anymore. She is being seen by infection disease, GI, pulmonary. She decides she does not want to do any more testing or treatment choices at home. I think she is ready for hospice. We will have hospice talk to the family. The ultrasound of the abdomen and pelvis was fine to be discharged today. She has multiple issues. She has breast cancer, right breast infection, left pneumonia, diabetes, anemia, debility, and weakness, and I think she is ready for hospice. She does not want any more tests, does not want any more treatment. I will set up for [facility] hosp[facility] to call family and get things arranged. PHYSICAL EXAMINATION: VITAL SIGNS: She has a 98.5 temp, 96 pulse, 125/59 blood pressure, 19 respiratory rate. HEENT: Head is atraumatic, normocephalic. Throat is moist. NECK: Supple. HEART: Regular rate. LUNGS: Decreased breath sounds, but clear. ABDOMEN: Soft, nontender. Positive bowel sounds. EXTREMITIES: No edema. MEDICATIONS: She is going to go home on Ativan, Colace, DuoNebs, Duragesic patch, insulin, Lasix, Lopressor, MiraLax, a multivitamin, potassium, and Advair. LABORATORY DATA: White count 9.1, 10.5 hemoglobin, 32.2 hematocrit with 100 platelets. Sodium 138, potassium is 2.9, low; I gave her two K-Dur 20 mEq. So, I put her on K-Dur 20 mEq daily. BUN 22, creatinine of 0.64, GFR greater than 60, sugars were 226, calcium is 8.5, total bilirubin is 1, AST is 372, ALT is 93, alkaline phosphatase is 885, and total protein is 5.5. Christian Stephens DO
[2017-04-13 19:21] LABS: LKM-1 Ab (IgG) <=20.0 U (<=20.0)
== END 2017-04-12 17:11 | disposition home health service (06) | DRG 871 ==
LOC: TRCU 18:34
PROVIDERS: ADMIT Family Medicine; ATTEND Family Medicine
PROC: 3E03329 Introduction of Other Anti-infective into Peripheral Vein, Percutaneous Approach (ICD-10-PCS; 2017-04-04)
PROC: F07Z9FZ Gait Training/Functional Ambulation Treatment using Assistive, Adaptive, Supportive or Protective Equipment (ICD-10-PCS; principal; 2017-04-06)
PROC: F07Z5FZ Bed Mobility Treatment using Assistive, Adaptive, Supportive or Protective Equipment (ICD-10-PCS; 2017-04-06)
PROC: F07Z8FZ Transfer Training Treatment using Assistive, Adaptive, Supportive or Protective Equipment (ICD-10-PCS; 2017-04-06)
PROC: F07L6ZZ Therapeutic Exercise Treatment of Musculoskeletal System - Lower Back / Lower Extremity (ICD-10-PCS; 2017-04-06)
PROC: F08Z2ZZ Grooming/Personal Hygiene Treatment (ICD-10-PCS; 2017-04-09)
DX: A41.9 Sepsis, unspecified organism (principal); J18.9 Pneumonia, unspecified organism; D61.818 Other pancytopenia; C78.00 Secondary malignant neoplasm of unspecified lung; J44.0 Chronic obstructive pulmonary disease with (acute) lower respiratory infection; C78.5 Secondary malignant neoplasm of large intestine and rectum; C79.51 Secondary malignant neoplasm of bone; K92.2 Gastrointestinal hemorrhage, unspecified; J44.1 Chronic obstructive pulmonary disease with (acute) exacerbation; C50.911 Malignant neoplasm of unspecified site of right female breast; N61.0 Mastitis without abscess; Z66 Do not resuscitate; D63.0 Anemia in neoplastic disease; E87.6 Hypokalemia; E55.9 Vitamin D deficiency, unspecified; M19.90 Unspecified osteoarthritis, unspecified site; E66.9 Obesity, unspecified; R74.0 Nonspecific elevation of levels of transaminase and lactic acid dehydrogenase [LDH]; K76.0 Fatty (change of) liver, not elsewhere classified; Z79.2 Long term (current) use of antibiotics; Z68.30 Body mass index [BMI] 30.0-30.9, adult; Z17.0 Estrogen receptor positive status [ER+]; Z87.891 Personal history of nicotine dependence